=== PATIENT | female | born 1970 | race Caucasian/White ===

== ENCOUNTER 2019-11-07 13:13 | Outpatient (CLI) | payer BC, OTHER, SELFPAY ==
--- NOTE | ~2019-11-07 | US_ITS ---
EXAMINATION: US venous doppler LE EXAM DATE: 11/07/2019 14:08 INDICATION: Left leg edema. Check for venous incompetence. TECHNIQUE: Multiple grayscale, color flow and Doppler images of the left lower extremity deep venous system were obtained and reviewed. There is no prior study for comparison. FINDINGS: The left common femoral, femoral and profunda veins demonstrate normal color flow, respirat ory variation, augmentation and compressibility. Compressibility, color flow confirmed within the le ft popliteal, posterior tibial, peroneal, and greater saphenous veins. No more than 0.5 seconds of v enous reflux was demonstrated at left popliteal and profunda veins. IMPRESSION: 1. No left lower extremity deep venous thrombosis. 2. Mild left profunda, popliteal venous reflux. Reviewed, dictated and finalized at location A.
== END 2019-11-07 13:14 | disposition home or self-care (01) ==
LOC: ANHIMG 13:21
PROVIDERS: PCP Family Medicine; Visit Provider Family Medicine
DX: I87.2 Venous insufficiency (chronic) (peripheral) (principal); R60.0 Localized edema
CPT/HCPCS: 93971

== ENCOUNTER 2020-01-22 10:39 | Outpatient (CLI) | payer BC, OTHER, SELFPAY ==
[2020-01-22 11:46] LABS: Alanine Aminotransferase 27 U/L (4-35); Albumin Level 4.3 g/dL (3.5-5.1); Alkaline Phosphatase 64 U/L (38-126); Aspartate Amino Transferase 32 U/L (14-36); Bilirubin,Total 0.4 mg/dL (0.2-1.3); Blood Urea Nitrogen 11 mg/dL (7-17); Calcium 9.7 mg/dL (8.4-10.2); Carbon Dioxide 32 mmol/L (22-30); Chloride 103 mmol/L (98-107); Estimated Glomerular Filt Rate > 60; Glucose 100 mg/dL (65-105); Hemoglobin A1C 6.4 % (<5.7); Potassium 3.8 mmol/L (3.4-5.0); Sodium 141 mmol/L (137-145)
== END 2020-01-22 10:40 | disposition home or self-care (01) ==
PROVIDERS: PCP Family Medicine; Visit Provider Family Medicine
DX: R73.03 Prediabetes (principal); I10 Essential (primary) hypertension
CPT/HCPCS: 36415; 80053; 83036; 84443

== ENCOUNTER 2020-01-30 11:51 | Outpatient (CLI) | payer BC, OTHER, SELFPAY ==
--- NOTE | ~2020-01-30 | US_ITS ---
US renal BI 01/30/2020 12:19 Procedure: Realtime transabdominal ultrasound of the kidneys and bladder. Indication: Hypertension Comparison: No prior studies for comparison. Findings: Renal echotexture is normal bilaterally without hydronephrosis, contour deforming mass or r enal calculus. The right kidney measures 10.4 cm and left kidney measures 10 cm. Bladder within norm al limits. Impression: 1: Unremarkable renal ultrasound. No stones, masses or hydronephrosis. Reviewed, dictated and finalized at location A. Impression: 1: Unremarkable renal ultrasound. No stones, masses or hydronephrosis.
== END 2020-01-30 11:52 | disposition home or self-care (01) ==
PROVIDERS: PCP Family Medicine; Visit Provider Family Medicine
DX: I10 Essential (primary) hypertension (principal)
CPT/HCPCS: 76775

== ENCOUNTER 2020-06-17 16:31 | Outpatient (CLI) | payer BC, OTHER, SELFPAY ==
--- NOTE | ~2020-06-17 | XR_ITS ---
XR wrist LT min 3V 06/17/2020 16:53 INDICATION: Osteoarthritis. Left wrist pain. PROCEDURE: 4 views left wrist COMPARISON: No prior studies for comparison. FINDINGS: Fracture, dislocation or subluxation is not identified. The soft tissues appear within norm al limits. No foreign bodies are identified. IMPRESSION: 1: NO SIGNIFICANT BONE OR JOINT ABNORMALITY IDENTIFIED. Reviewed, dictated and finalized at location A.
== END 2020-06-17 16:32 | disposition home or self-care (01) ==
PROVIDERS: PCP Family Medicine; Visit Provider Plastic Surgery
DX: M19.042 Primary osteoarthritis, left hand (principal)
CPT/HCPCS: 73110

== ENCOUNTER 2020-07-01 08:21 | Outpatient (CLI) | payer BC, OTHER, SELFPAY ==
[2020-07-01 08:35] LABS: Basophils Absolute Auto 0.1 K/mm3 (0.0-0.1); Basophils Percent Auto 0.8 % (0.2-1.2); Eosinophils Absolute Auto 0.2 K/mm3 (0-0.3); Eosinophils Percent Auto 3.4 % (0-4.4); Hematocrit 38.9 % (37.0-47.0); Hemoglobin 12.3 g/dL (12.0-15.0); Immature Granulocyte Absolute 0.01 K/mm3 (0.00-0.031); Immature Granulocyte Percent A 0.2 % (0-0.5); Lymphocytes Absolute Auto 1.98 K/mm3 (0.9-3.2); Mean Corpuscular HGB Conc 31.6 g/dl (32-36); Mean Corpuscular Hemoglobin 30.6 pg (26-34); Mean Corpuscular Volume 96.8 fl (80-100); Mean Platelet Volume 10.3 fl (7.4-10.4); Monocytes Absolute Auto 0.6 K/mm3 (0.1-0.6); Monocytes Percent Auto 9.2 % (2.6-8.5); Neutrophils Absolute Auto 3.4 K/mm3 (1.3-6.7); Neutrophils Percent Auto 54.4 % (45.5-73.1); Platelet Count Result 306 k/mm3 (150-375); Red Blood Count 4.02 M/mm3 (4.2-5.4); Red Cell Distribution Width 13.7 % (11.5-14.5); White Blood Count 6.2 K/mm3 (4.5-10.0)
[2020-07-01 08:48] LABS: Hemoglobin A1C 5.2 % (<5.7)
[2020-07-01 08:51] LABS: Alanine Aminotransferase 26 U/L (4-35); Albumin Level 3.6 g/dL (3.5-5.1); Alkaline Phosphatase 58 U/L (38-126); Anion Gap 5 mmol/L (8-16); Aspartate Amino Transferase 29 U/L (14-36); Bilirubin,Total 0.3 mg/dL (0.2-1.3); Blood Urea Nitrogen 13 mg/dL (7-17); Calcium 9.2 mg/dL (8.4-10.2); Carbon Dioxide 31 mmol/L (22-30); Chloride 107 mmol/L (98-107); Cholesterol 171 mg/dL (0-200); Estimated Glomerular Filt Rate > 60; Glucose 94 mg/dL (65-105); HDL Direct 53 mg/dL; Potassium 3.7 mmol/L (3.4-5.0); Sodium 143 mmol/L (137-145); Triglycerides 128 mg/dL (<150)
[2020-07-01 09:08] LABS: LDL Cholesterol Direct 85 mg/dL
== END 2020-07-01 08:22 | disposition home or self-care (01) ==
PROVIDERS: PCP Family Medicine; Visit Provider Nurse Practitioner
DX: I10 Essential (primary) hypertension (principal); R73.9 Hyperglycemia, unspecified; E78.5 Hyperlipidemia, unspecified
CPT/HCPCS: 36415; 80053; 80061; 83036; 85025

== ENCOUNTER 2020-11-30 17:21 | Outpatient (CLI) | payer BC, OTHER, SELFPAY | END 2020-11-30 17:22 | disposition home or self-care (01) | LOC: ANHCOVIDVC 17:21 | PROVIDERS: PCP Family Medicine | DX: Z23 Encounter for immunization (principal) | CPT/HCPCS: 0001A; 91300 ==

== ENCOUNTER 2020-12-22 17:05 | Outpatient (CLI) | payer BC, OTHER, SELFPAY | END 2020-12-22 17:06 | disposition home or self-care (01) | LOC: ANHCOVIDVC 17:06 | PROVIDERS: PCP Family Medicine | DX: Z23 Encounter for immunization (principal) | CPT/HCPCS: 0002A; 91300 ==

== ENCOUNTER 2021-05-04 07:51 | Outpatient (CLI) | payer OTHER, SELFPAY ==
[2021-05-04 08:46] LABS: Basophils Absolute Auto 0.1 K/mm3 (0.0-0.1); Basophils Percent Auto 0.7 % (0.2-1.2); Eosinophils Absolute Auto 0.1 K/mm3 (0-0.3); Hematocrit 44.2 % (37.0-47.0); Hemoglobin 13.8 g/dL (12.0-15.0); Immature Granulocyte Absolute 0.03 K/mm3 (0.00-0.031); Immature Granulocyte Percent A 0.3 % (0-0.5); Lymphocytes Absolute Auto 1.84 K/mm3 (0.9-3.2); Lymphocytes Percent Auto 21.4 % (18.3-44.2); Mean Corpuscular HGB Conc 31.2 g/dl (32-36); Mean Corpuscular Hemoglobin 30.3 pg (26-34); Mean Corpuscular Volume 97.1 fl (80-100); Mean Platelet Volume 10.8 fl (7.4-10.4); Monocytes Absolute Auto 0.6 K/mm3 (0.1-0.6); Monocytes Percent Auto 6.7 % (2.6-8.5); Neutrophils Percent Auto 69.9 % (45.5-73.1); Platelet Count Result 336 k/mm3 (150-375); Red Blood Count 4.55 M/mm3 (4.2-5.4); Red Cell Distribution Width 14.1 % (11.5-14.5); White Blood Count 8.6 K/mm3 (4.5-10.0)
[2021-05-04 08:55] LABS: Alanine Aminotransferase 32 U/L (4-35); Albumin Level 3.9 g/dL (3.5-5.1); Alkaline Phosphatase 77 U/L (38-126); Anion Gap 7 mmol/L (8-16); Aspartate Amino Transferase 28 U/L (14-36); Bilirubin,Total 0.3 mg/dL (0.2-1.3); Blood Urea Nitrogen 8 mg/dL (7-17); Calcium 9.3 mg/dL (8.4-10.2); Carbon Dioxide 26 mmol/L (22-30); Chloride 109 mmol/L (98-107); Cholesterol 190 mg/dL (0-200); Estimated Glomerular Filt Rate > 60; Glucose 108 mg/dL (65-110); HDL Direct 59 mg/dL; Potassium 3.7 mmol/L (3.4-5.0); Sodium 142 mmol/L (137-145); Triglycerides 153 mg/dL (<150)
[2021-05-04 09:06] LABS: LDL Cholesterol Direct 83 mg/dL
[2021-05-04 09:42] LABS: Vitamin D 25 Hydroxy 52.9 ng/mL
== END 2021-05-04 07:52 | disposition home or self-care (01) ==
LOC: ANHLAB 07:53
PROVIDERS: PCP Family Medicine; Visit Provider Nurse Practitioner
DX: E78.5 Hyperlipidemia, unspecified (principal); E55.9 Vitamin D deficiency, unspecified; I10 Essential (primary) hypertension
CPT/HCPCS: 36415; 80053; 80061; 82306; 85025

== ENCOUNTER 2021-06-23 10:21 | Outpatient (CLI) | payer OTHER, SELFPAY | END 2021-06-23 10:22 | disposition home or self-care (01) | PROVIDERS: PCP Family Medicine; Visit Provider Nurse Practitioner | DX: R19.7 Diarrhea, unspecified (principal) | CPT/HCPCS: 87045; 87324; 87427 ==

== ENCOUNTER 2021-07-06 10:32 | Outpatient (CLI) | payer OTHER, SELFPAY | END 2021-07-06 10:33 | disposition home or self-care (01) | LOC: ANHAUDIO 10:33 | PROVIDERS: PCP Family Medicine; Visit Provider Nurse Practitioner | DX: H90.3 Sensorineural hearing loss, bilateral (principal) | CPT/HCPCS: 92557; 92567 ==

== ENCOUNTER 2021-07-09 07:04 | Outpatient (CLI) | payer OTHER, SELFPAY ==
--- NOTE | ~2021-07-09 | CT_ITS ---
EXAMINATION: CT knee LT wo con DATE: 07/09/2021 07:46 INDICATION: Left knee pain. TECHNIQUE: Computed tomography (CT) of the left knee was performed without intravenous contrast. Auto mated exposure control and iterative reconstruction technique were employed. The dose-length product was 384.87 mGy-cm. COMPARISON: None FINDINGS: Bone alignment is normal. There is a subchondral fracture of lateral femoral condyle at the notch with up to 2 mm depression of the articular surface best seen on sagittal images. There is a b enign bone island in medial femoral condyle. There is mild tricompartmental osteoarthritis. There is a small knee joint effusion. There is a small Slade's cyst. There is prepatellar and superficial infr apatellar bursitis. IMPRESSION: 1. Subchondral fracture of lateral femoral condyle at the notch. 2. Mild left knee osteoarthritis. 3. Small left knee joint effusion. 4. Small Slade's cyst. Reviewed, dictated and finalized at location A. [employer]
== END 2021-07-09 07:05 | disposition home or self-care (01) ==
LOC: ANHIMG 07:08
PROVIDERS: PCP Family Medicine; Visit Provider Nurse Practitioner
DX: M17.12 Unilateral primary osteoarthritis, left knee (principal); M25.462 Effusion, left knee; M71.22 Synovial cyst of popliteal space [Baker], left knee
CPT/HCPCS: 73700

== ENCOUNTER 2021-10-08 09:11 | Outpatient (CLI) | payer OTHER, SELFPAY ==
--- NOTE | ~2021-10-08 | XR_ITS ---
. EXAMINATION: XR fl inj knee LT for MR/CT DATE: 10/08/2021 09:59 INDICATION: Left knee pain. TECHNIQUE: A time-out was performed to verify the patient's name, date of , and procedure to b e performed. The procedure including the risks, benefits, and alternatives was discussed with the pat ient. Risks discussed included bleeding and infection. The patient understood the risks and agreed to proceed. The skin overlying the lateral aspect of the left knee joint was prepped and draped in usu al sterile fashion. Anesthetic was administered with 1% lidocaine subcutaneously. A 22 G needle was advanced under fluoroscopic guidance into the joint. A mixture of 40 mL of 3:2:1 mixture of sterile saline:Omnipaque 240:1% lidocaine was injected with intra-articular administration confirmed with int ermittent fluoroscopy. The needle was removed and the entry site was cleaned and dressed. There were no immediate complications. Fluoroscopy exposure time was 0.2 minutes. The total number of images wa s 7. FINDINGS: Real-time fluoroscopy demonstrates the and contrast in the left knee joint. IMPRESSION: 1. Successful left knee joint injection of an iodinated contrast mixture for subsequent CT arthrogram which will be dictated separately. Reviewed, dictated and finalized at location A. [employer] WIRE [employer]IEF IMPRESSION: 1. Successful left knee joint injection of an iodinated contrast mixture for varma bsequent CT arthrogram which will be dictated separately.
--- NOTE | ~2021-10-08 | CT_ITS ---
EXAMINATION: CT knee LT w con DATE: 10/08/2021 10:01 INDICATION: Left knee pain TECHNIQUE: High resolution computed tomography (CT) of the left knee was performed following intra-ar ticular administration of an iodinated contrast mixture but without intravenous contrast. Details of the joint injection have been dictated separately. Additional sagittal and coronal reconstructions we re performed. Automated exposure control and iterative reconstruction technique were employed. The do se-length product was 554.21 mGy-cm. COMPARISON: Left knee radiographs dated 10/07/2021 FINDINGS: Bone alignment is normal. No fracture. Bone island at the medial femoral condyle. Menisci appear norm al without discrete tears. Tricompartmental osteoarthritis. In the lateral compartment this is modera te to severe with/near full-thickness chondral ulceration along the lateral margin of the anterior we ightbearing lateral femoral condyle. Less severe partial thickness cartilage loss but with prominent deep chondral fissure at the central weightbearing lateral femoral condyle. Additional extensive deep chondral ulceration along much of the lateral tibial plateau which is full/near full-thickness anter iorly. Moderate osteoarthritis in the medial compartment with extensive partial thickness cartilage l oss along the weightbearing medial femoral condyle and medial tibial plateau latter approaching full- thickness along the anteromedial rim. Mild osteoarthritis in the patellofemoral compartment with part ial thickness cartilage loss and extensive deep chondral fissuring at the patellar apical ridge and m edial facet. Trochlear cartilage appears relatively preserved. No loose osteochondral bodies. Some di lute contrast is seen within 3.8 x 1.6 x 1.1 cm Slade's cyst. Soft tissue anatomy are otherwise unrem arkable. IMPRESSION: 1. Tricompartmental osteoarthritis at the left knee, moderate to severe at the lateral compartment, m oderate in the medial compartment and mild in the patellofemoral compartment. 2. Normal menisci. 3. Small to moderate size Slade's cyst. Reviewed, dictated and finalized at location A. TESTER IMPRESSION: 1. Tricompartmental osteoarthritis at the left knee, moderate to severe at the lateral compartment, moderate in the medial compartment and mild in the patello femoral compartment. 2. Normal menisci. 3. Small to moderate size Slade's cyst.
== END 2021-10-08 09:12 | disposition home or self-care (01) ==
LOC: ANHIMG 09:13
PROVIDERS: PCP Family Medicine; Visit Provider Orthopaedic Surgery
DX: M71.22 Synovial cyst of popliteal space [Baker], left knee (principal); M17.12 Unilateral primary osteoarthritis, left knee
CPT/HCPCS: 20610; 73701; 77002; Q9966

== ENCOUNTER 2021-12-29 00:49 | Day surgery (SDC) | payer OTHER, SELFPAY ==
[2021-12-10 13:13] VITALS: BMI 27.6
[2021-12-29 10:20] VITALS: BP 146/88; PULSE 70; RESP 16; TEMP 36.6; O2SAT 98
[2021-12-29] MEDS: LACTATED RINGERS 1,000 ML 150 ML IV CONT (10:23)
--- NOTE | 2021-12-29 10:42 | WPDANESEPPF ---
Anes - Initial Pre Proc Eval Procedure: Operation Date: 12/29/21 11:30 Proposed Procedures p Esophagogastroduodenoscopy - Marcel Maher MD Date/Time: 12/29/21 10:42 Surgeon: Marcel Maher MD Pre Op Diagnosis: GERD, vomiting Patient Data Age: 51 Gender: F Height: 1.68 m Weight: 78.3 kg Last Vital Signs Temp 97.9 F 12/29/21 10:20 Pulse 70 12/29/21 10:20 Resp 16 12/29/21 10:20 BP 146/88 H 12/29/21 10:20 Pulse Ox 98 12/29/21 10:20 Allergies Allergy/AdvReac Type Severity Reaction Status Date / Time No Known Allergies Allergy Verified 12/29/21 10:19 Home Medications Medication Instructions Recorded Confirmed Type ascorbic acid (vitamin C) [Vitamin 1 g PO DAILY 07/16/19 12/29/21 History C] aspirin [Adult Low Dose Aspirin] 81 mg PO DAILY 07/16/19 12/29/21 History melatonin 10 mg tablet 10 mg PO DAILY PRN tablet 10/30/19 12/29/21 History apple cider vinegar 500 mg tablet 500 mg PO TID tablet 01/22/20 12/29/21 History ergocalciferol (vitamin D2) 50 mcg 50 mcg PO DAILY 01/22/20 12/29/21 History (2,000 unit) tablet hydralazine 50 mg tablet See Rx Instructions .ROUTE 12/29/20 12/29/21 Rx .COMPLEX #90 tablet hydrochlorothiazide 25 mg tablet 25 mg PO DAILY #90 tablet 12/30/20 12/29/21 Rx sumatriptan succinate 100 mg tablet 100 mg PO BID PRN #9 tablet 04/09/21 12/29/21 Rx amlodipine 10 mg tablet 10 mg PO DAILY #90 tablet 06/22/21 12/29/21 Rx duloxetine 60 mg capsule,delayed 60 mg PO BID #180 cap 06/22/21 12/29/21 Rx release conjugated estrogens 0.9 mg tablet 0.9 mg PO DAILY tablet 07/12/21 12/29/21 History topiramate 200 mg tablet 300 mg PO BID tablet 07/12/21 12/29/21 History lisinopril 20 mg tablet 20 mg PO DAILY #90 tablet 09/20/21 12/29/21 Rx metoprolol succinate 100 mg 100 mg PO DAILY #90 tablet 11/26/21 12/29/21 Rx tablet,extended release 24 hr diclofenac sodium 50 mg 50 mg PO DAILY #30 tablet 12/01/21 12/29/21 Rx tablet,delayed release linaclotide 72 mcg capsule 72 mcg PO DAILY 30 Days #30 cap 12/21/21 12/29/21 Rx erenumab-aooe [Aimovig 140 mg SUBCUT MONTHLY 12/29/21 12/29/21 History Autoinjector] Patient hx anesthesia problems: none Family hx anesthesia problems: none Results Review: All pre-operative results and documents have been reviewed as part of the pre-operative evaluation. [facility] Past Medical History Medical History (Updated 11/23/21 @ 16:21 by Sonam Cadena, [employer]) Adenomatous colon polyp Arthritis Back pain spinal cord stimulator- left lower back Chronic neck and back pain Depression Edema of left lower extremity Essential (primary) hypertension GERD (gastroesophageal reflux disease) History of colon polyps Intractable migraine without status migrainosus Irritable bowel syndrome with constipation IT band syndrome Left knee Left knee pain Metacarpophalangeal joint pain of left hand Prediabetes Trochanteric bursitis of right hip Urge incontinence Vitamin D deficiency Surgical History Surgical History History of abdominoplasty 2009 History of arthroplasty disc - L5-S1 - 2008 & C4-6 - 2009 History of cholecystectomy 1998 History of hysterectomy 2000 Hx of section 1988 & 1996 Hx of tonsillectomy 1985 Family History Family History Grandparent Hypertension Family history of alcoholism Carcinoma of colon Family history of throat cancer Family history of malignant neoplasm of ovary Father Family history of alcoholism Family history of cardiovascular disease Mother Family history of lung cancer Family history of malignant neoplasm of ovary Other Family history of arthritis Family history of malignant neoplasm Social History Social History Years smoked: 10 Smoking status: Never smoker Second hand tobacco smoke
--- NOTE | 2021-12-29 11:04 | PM.HPGS ---
History of Present Illness History of Present Illness Consent: Risks, benefits, and alternatives have been discussed and questions answered. Patient agrees to proceed with procedure. Chief complaint: GERD, vomiting Narrative: Hui Sutherland is a 51 year old female with gerd on omeprazole 40 mg daily but if skips a dose will get quite symptomatic, also tried gluten free diet with some improvement on leg edema and headaches- wonder if she could have celiac. Never had egd Review of Systems Constitutional: Constitutional: Denies headache(s) and Denies weakness Eyes: Eyes: Denies blurry vision ENT: Reports Normal hearing present, Denies headache(s) and Denies neck pain Cardiovascular: Cardiovascular: Denies chest pain and Denies dyspnea Respiratory: Respiratory: Denies dyspnea Gastrointestinal: Gastrointestinal: Reports no additional gastrointestinal complaints Genitourinary: Genitourinary: Denies dysuria Musculoskeletal: Musculoskeletal: Denies neck pain Integumentary/Breasts: Skin/Breast: Denies dry skin Neurologic: Reports Normal hearing present, Denies headache(s) and Denies weakness Psychiatric: Psychiatric: Denies anxiety Endocrine: Endocrine: Denies change in body appearance Hematologic/Lymphatic: Hematologic/Lymphatic: Denies easy bleeding Allergic/Immunologic: Allergic/Immunologic: Denies urticaria PMF Past Medical History Medical History (Updated 11/23/21 @ 16:21 by Sonam Cadena APN-C) Adenomatous colon polyp Arthritis Back pain spinal cord stimulator- left lower back Chronic neck and back pain Depression Edema of left lower extremity Essential (primary) hypertension GERD (gastroesophageal reflux disease) History of colon polyps Intractable migraine without status migrainosus Irritable bowel syndrome with constipation IT band syndrome Left knee Left knee pain Metacarpophalangeal joint pain of left hand Prediabetes Trochanteric bursitis of right hip Urge incontinence Vitamin D deficiency Surgical History Surgical History History of abdominoplasty 2009 History of arthroplasty disc - L5-S1 - 2008 & C4-6 - 2009 History of cholecystectomy 1998 History of hysterectomy 2000 Hx of section 1988 & 1996 Hx of tonsillectomy 1985 Family History Family History Grandparent Hypertension Family history of alcoholism Carcinoma of colon Family history of throat cancer Family history of malignant neoplasm of ovary Father Family history of alcoholism Family history of cardiovascular disease Mother Family history of lung cancer Family history of malignant neoplasm of ovary Other Family history of arthritis Family history of malignant neoplasm Social History Social History Years smoked: 10 Smoking status: Never smoker Second hand tobacco smoke exposure: No Alcohol intake: never Substance use: current Substance use type: marijuana Other substance usage details: EDIBLES Living arrangements: with family Gender identity (if verbalized by the patient): Female Spiritual care concerns: No Meds Home Medications and Allergies Home Medications Medication Instructions Recorded Confirmed Type ascorbic acid (vitamin C) [Vitamin 1 g PO DAILY 07/16/19 12/29/21 History C] aspirin [Adult Low Dose Aspirin] 81 mg PO DAILY 07/16/19 12/29/21 History melatonin 10 mg tablet 10 mg PO DAILY PRN tablet 10/30/19 12/29/21 History apple cider vinegar 500 mg tablet 500 mg PO TID tablet 01/22/20 12/29/21 History ergocalciferol (vitamin D2) 50 mcg 50 mcg PO DAILY 01/22/20 12/29/21 History (2,000 unit) tablet hydralazine 50 mg tablet See Rx Instructions .ROUTE 12/29/20 12/29/21 Rx .COMPLEX #90 tablet hydrochlorothiazide 25 mg tablet 25 mg PO DAILY #90 tablet 12/30/20 12/29/21 Rx sumatrip
[2021-12-29 11:16] VITALS: BP 126/83; PULSE 75; RESP 19; O2SAT 94
[2021-12-29 11:26] VITALS: BP 129/75; PULSE 71; RESP 18; O2SAT 96
[2021-12-29 11:36] VITALS: BP 141/91; PULSE 65; RESP 17; O2SAT 100
== END 2021-12-29 11:44 | disposition home or self-care (01) ==
PROVIDERS: PCP Family Medicine; Visit Provider Internal Medicine Gastroenterology
PROC: 0DJ08ZZ Inspection of Upper Intestinal Tract, Via Natural or Artificial Opening Endoscopic (ICD-10-PCS; CPT 43235; principal; 2021-12-29 11:30)
DX: K21.00 Gastro-esophageal reflux disease with esophagitis, without bleeding (principal); K29.50 Unspecified chronic gastritis without bleeding; I10 Essential (primary) hypertension; E55.9 Vitamin D deficiency, unspecified; F32.9 Major depressive disorder, single episode, unspecified; K58.1 Irritable bowel syndrome with constipation; G89.29 Other chronic pain; M54.9 Dorsalgia, unspecified; M54.2 Cervicalgia; F12.90 Cannabis use, unspecified, uncomplicated
CPT/HCPCS: 43239; 88305; J2704; J7120

== ENCOUNTER 2022-04-28 13:28 | Outpatient (CLI) | payer OTHER, SELFPAY ==
[2022-04-28 14:16] LABS: Alanine Aminotransferase 36 U/L (6-35); Albumin Level 4.3 g/dL (3.5-5.1); Alkaline Phosphatase 60 U/L (38-126); Anion Gap 13 mmol/L (8-16); Aspartate Amino Transferase 32 U/L (14-36); Bilirubin,Total 0.3 mg/dL (0.2-1.3); Blood Urea Nitrogen 15 mg/dL (7-17); Calcium 8.8 mg/dL (8.4-10.2); Carbon Dioxide 26 mmol/L (22-30); Chloride 101 mmol/L (98-107); Estimated Glomerular Filt Rate > 60; Glucose 102 mg/dL (65-110); Potassium 3.6 mmol/L (3.4-5.0); Sodium 140 mmol/L (137-145)
== END 2022-04-28 13:29 | disposition home or self-care (01) ==
PROVIDERS: PCP Nurse Practitioner; Visit Provider Nurse Practitioner
DX: E87.6 Hypokalemia (principal)
CPT/HCPCS: 36415; 80053

== ENCOUNTER 2022-05-27 15:57 | Outpatient (CLI) | payer OTHER, SELFPAY ==
--- NOTE | ~2022-05-27 | XR_ITS ---
XR abdomen/kub 1V 05/27/2022 16:20 Indication: Flank pain. Procedure: KUB Comparison: CT dated 05/27/2022 Findings: There is a prosthetic disc device at L5-S1. There are spinal stimulator leads in the upper abdomen. There are pelvic phleboliths. No renal stones are identified. Mild lumbar spondylosis with l evoscoliosis. Nonobstructive bowel gas pattern. Impression: 1: No acute abdominal abnormality. Reviewed, dictated and finalized at location A. Impression: 1: No acute abdominal abnormality.
--- NOTE | ~2022-05-27 | CT_ITS ---
EXAMINATION: CT abdomen pelvis wo con DATE: 05/27/2022 16:23 INDICATION: Bilateral flank pain. Hematuria. TECHNIQUE: Computed tomography (CT) of the abdomen and pelvis was performed without intravenous contr ast. The dose-length product was 228.77 mGy-cm. Automated exposure control and iterative reconstruction technique were employed. COMPARISON: None. FINDINGS: Lung bases are unremarkable. Heart size is normal. No significant pleural or pericardial ef fusion. Small fat-containing right periumbilical hernia. Status post cholecystectomy. The liver, sple en, pancreas, adrenal glands and kidneys are unremarkable. Normal appendix. No renal stones. No urete ral stones or hydronephrosis. Bladder is unremarkable. No significant vascular abnormality. No lympha denopathy. Small fat-containing left inguinal hernia. There is a spinal stimulator with leads in the thoracic spine. Nonobstructive bowel gas pattern. Moderate colonic fecal loading. Hysterectomy change s are present at L5-S1 IMPRESSION: 1. No findings to account for patient's symptoms. No acute abnormality. Reviewed, dictated and finalized at location A.
== END 2022-05-27 15:58 | disposition home or self-care (01) ==
PROVIDERS: PCP Nurse Practitioner; Visit Provider Nurse Practitioner Adult Health
DX: R10.9 Unspecified abdominal pain (principal)
CPT/HCPCS: 74018; 74176

== ENCOUNTER 2022-06-24 13:15 | Outpatient (CLI) | payer OTHER, SELFPAY ==
[2022-06-24 13:55] LABS: Alanine Aminotransferase 32 U/L (6-35); Aspartate Amino Transferase 25 U/L (14-36)
== END 2022-06-24 13:16 | disposition home or self-care (01) ==
LOC: ANHLAB 13:18
PROVIDERS: PCP Family Medicine; Visit Provider Podiatrist Foot & Ankle Surgery
DX: B35.1 Tinea unguium (principal)
CPT/HCPCS: 36415; 84450; 84460

== ENCOUNTER 2022-07-20 10:04 | Outpatient (CLI) | payer OTHER, SELFPAY ==
--- NOTE | 2022-07-20 10:15 | ECG_ITS ---
Measurements Intervals [place] Rate: 63 P: 50 NH: 144 QRS: 25 QRSD: 102 T: 39 QT: 412 QTc: 422 Interpretive Statements SINUS RHYTHM BASELINE WANDER- I, II, AVR, V4-V6 NORMAL ECG NO PREVIOUS ECG AVAILABLE FOR COMPARISON Electronically Signed On 07-20-2022 10:24:00 PLACEMENT COORDINATOR by Christopher Fernández D.O.
[2022-07-20 11:25] LABS: Anion Gap 4 mmol/L (8-16); Blood Urea Nitrogen 13 mg/dL (7-17); Calcium 8.7 mg/dL (8.4-10.2); Carbon Dioxide 28 mmol/L (22-30); Chloride 108 mmol/L (98-107); Estimated Glomerular Filt Rate 59; Glucose 124 mg/dL (65-110); Potassium 3.9 mmol/L (3.4-5.0); Sodium 140 mmol/L (137-145)
== END 2022-07-20 10:05 | disposition home or self-care (01) ==
LOC: ANHLAB 10:05
PROVIDERS: PCP Family Medicine; Referring Provider Surgery; Visit Provider Anesthesiology
DX: K40.90 Unilateral inguinal hernia, without obstruction or gangrene, not specified as recurrent (principal); R35.89 Other polyuria; E78.5 Hyperlipidemia, unspecified; Z01.818 Encounter for other preprocedural examination
CPT/HCPCS: 36415; 80048; 86850; 86900; 86901; 93005

== ENCOUNTER 2022-08-01 01:44 | Day surgery (SDC) | payer OTHER, SELFPAY ==
[2022-07-19 09:27] VITALS: BMI 27.3
--- NOTE | 2022-07-19 09:59 | PC.NURSE ---
Report to the Outpatient Waiting Room, entrance under the green pavilion located off [facility], at time 1200 on date 08/01/22 Planned Procedure Time: 1400. Time changes happen often and if your time is changed the preop area will call you the afternoon before. - You and your visitor will be asked to self-screen and do not enter if you have any COVID symptoms. - Only one visitor is requested with a max of two and NO children visitors are allowed at this time. - The patient visitor may be requested to leave or wait in car when not with patient due to distancing restrictions. - A mask is optional within the hospital. Patients may have clear liquids (water, carbonated beverages, clear teas, apple juice) until 3 hours prior to surgery with a maximum of 20 ounces. - No food from midnight until time of surgery - Infants may have breast milk until 4 hours before surgery, infant formula 6 hours prior to surgery. - Children will be allowed to drink immediately following surgery. If applicable, please bring a bottle or sippy cup to assist with drinking. Juice, water, soda, and popsicles are readily available. For infants on formula, please bring formula the day of surgery. Pacifiers are allowed. Take the following medications with a SIP of water the morning of surgery: metoprolol, amlodipine, anti-anxiety/depression Medications to discontinue per physician vitamins/supplements, aspirin(dos)___ Date to take last dose_07/29/22 Please no make-up, nail czech, hairspray, perfume, deodorant, or body powder the day of surgery. No jewelry (including any body piercings) or valuables the day of surgery, leave them at home. Please take a shower or bath the night before, or the morning of, surgery with an antibacterial soap. Wear comfortable, loose fitting clothing. Children are encouraged to wear pajamas. - Jewelry must be removed prior to entering the operating room. Rings and piercings that are not removed may be cut off. - The hospital will not accept responsibility for valuables. - Please leave all valuables, including medications, at home the day of surgery. If you are going home after surgery, a licensed hearse driver must drive you home. - NO public transportation without another adult if you receive anesthesia. - We recommend that an adult stay with you for 24 hours following discharge. - We also recommend that you do not drive, make important decision, drink alcoholic beverages, or take any drugs that were not prescribed by your health care provider for at least 24 hours after your discharge time. For Pediatric surgeries, we recommend two adults accompany the child home. Follow any additional instructions given to you from your surgeon. If you or anyone in your household have experienced Covid symptoms in the past week, please notify your surgeon or the nurse liaison at the phone number below for possible testing. Telephone instructions given to Hui Sutherland and asked if any additional questions and then verbalized understanding. Patient advised to call surgeon office or pre surgery nurse liaison [phone] if any additional questions.
[2022-08-01] VITALS (8 sets, daily range): BP systolic 121–145; BP diastolic 74–93; PULSE 60–70; RESP 14–16; TEMP 36.4–36.6; O2SAT 95–100
--- NOTE | 2022-08-01 11:27 | PM.IMHP ---
H&P: HPI History of Present Illness Date/Time: 08/01/22 11:27 Chief Complaint: ventral hernia Narrative: Hui is a 51 y/o female who presents to the office at the request of Daylin Parry NP for evaluation of lower abdominal pain with associated constipation. She states she has been experiencing these symptoms intermittently for many years but they have worsened over the past two months. She also reports nausea/vomiting. Patient states she has not had a BM in the past 3 days. She currently takes Linzess. She also just got back from a vacation to [place] for 10 days and did not have a BM until she returns. She has tried taking Miralax with no relief. CT abd/pelvis w/o contrast on 05/27/22 revealed a small fat-containing left inguinal hernia.? Review of Systems Review of Systems: All systems reviewed & are unremarkable except as noted in HPI and below PMFSH Past Medical History Medical History Adenomatous colon polyp Arthritis Back pain spinal cord stimulator- left lower back Chronic neck and back pain Edema of left lower extremity Essential (primary) hypertension GERD (gastroesophageal reflux disease) History of colon polyps Intractable migraine without status migrainosus Irritable bowel syndrome with constipation IT band syndrome Left knee Metacarpophalangeal joint pain of left hand Prediabetes Trochanteric bursitis of right hip Urge incontinence Vitamin D deficiency Surgical History Surgical History History of abdominoplasty 2009 History of arthroplasty disc - L5-S1 - 2008 & C4-6 - 2009 History of cholecystectomy 1998 History of hysterectomy 2000 Hx of section 1988 & 1996 Hx of endoscopy Hx of tonsillectomy 1985 Family History Family History Grandparent Hypertension Family history of alcoholism Carcinoma of colon Family history of throat cancer Family history of malignant neoplasm of ovary Father Family history of alcoholism Family history of cardiovascular disease Cerebrovascular accident Hypertension Mother Family history of lung cancer Family history of malignant neoplasm of ovary Hypertension Other Family history of arthritis Family history of malignant neoplasm Social History Social History Years smoked: 10 Smoking status: Never smoker Second hand tobacco smoke exposure: No Alcohol intake: never Substance use: current Substance use type: marijuana Other substance usage details: medical marijuana Living arrangements: alone 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 Gender identity (if verbalized by the patient): Female Sexual Orientation (if Verbalized by the Patient): Straight or Heterosexual Spiritual care concerns: No Agree to blood products: Yes Meds Home Medications and Allergies Home Medications Medication Instructions Recorded Confirmed Type ascorbic acid (vitamin C) 1,000 mg 1 g PO DAILY 07/16/19 07/21/22 History tablet (Vitamin C) aspirin 81 mg tablet,delayed 81 mg PO DAILY 07/16/19 07/21/22 History release (Adult Low Dose Aspirin) melatonin 10 mg tablet 10 mg PO DAILY PRN Sleep 10/30/19 07/21/22 History apple cider vinegar 500 mg tablet 500 mg PO TID 01/22/20 07/21/22 History ergocalciferol (vitamin D2) 50 mcg 50 mcg PO DAILY 01/22/20 07/21/22 History (2,000 unit) tablet sumatriptan succinate 100 mg tablet 100 mg PO BID PRN migraine 04/09/21 07/21/22 Rx headache #9 tabs conjugated estrogens 0.9 mg tablet 0.9 mg PO DAILY 07/12/21 07/21/22 History erenumab-aooe 140 mg/mL 140 mg subcut MONTHLY 12/29/21 07/21/22 History subcutaneous auto-injector (Aimovig Autoinjector) hydralazine 50 mg tablet 50 mg PO TID 01/10/22 07/21/22 History metoprolol succinate 100 mg 100 mg PO DAILY #90 ta
[2022-08-01] MEDS: KETOROLAC 15 MG/ML VIAL (*BKC) IV PUSH (12:00)
[2022-08-01] MEDS: ACETAMINOPHEN 500 MG TABLET 1000 MG PO (12:00)
[2022-08-01] MEDS: LACTATED RINGERS 1,000 ML 30 ML IV CONT ×2 (12:00→15:30)
--- NOTE | 2022-08-01 12:54 | WPDANESEPPF ---
Anes - Initial Pre Proc Eval Procedure: Operation Date: 08/01/22 14:00 Proposed Procedures p Robotic Assisted Left Inguinal Hernia Repair with Mesh - Liz Perez MD Date/Time: 08/01/22 12:54 Surgeon: Liz Perez MD Pre Op Diagnosis: Left Ing Hernia Patient Data Age: 51 Gender: F Height: 1.68 m Weight: 77 kg Allergies Allergy/AdvReac Type Severity Reaction Status Date / Time No Known Allergies Allergy Verified 08/01/22 12:55 Home Medications Medication Instructions Recorded Confirmed Type ascorbic acid (vitamin C) 1,000 mg 1 g PO DAILY 07/16/19 07/21/22 History tablet (Vitamin C) aspirin 81 mg tablet,delayed 81 mg PO DAILY 07/16/19 07/21/22 History release (Adult Low Dose Aspirin) melatonin 10 mg tablet 10 mg PO DAILY PRN Sleep 10/30/19 07/21/22 History apple cider vinegar 500 mg tablet 500 mg PO TID 01/22/20 07/21/22 History ergocalciferol (vitamin D2) 50 mcg 50 mcg PO DAILY 01/22/20 07/21/22 History (2,000 unit) tablet sumatriptan succinate 100 mg tablet 100 mg PO BID PRN migraine 04/09/21 07/21/22 Rx headache #9 tabs conjugated estrogens 0.9 mg tablet 0.9 mg PO DAILY 07/12/21 07/21/22 History erenumab-aooe 140 mg/mL 140 mg subcut MONTHLY 12/29/21 07/21/22 History subcutaneous auto-injector (Aimovig Autoinjector) hydralazine 50 mg tablet 50 mg PO TID 01/10/22 07/21/22 History metoprolol succinate 100 mg 100 mg PO DAILY #90 tabs 01/10/22 07/21/22 Rx tablet,extended release 24 hr topiramate 200 mg tablet 200 mg PO BID 01/10/22 07/21/22 History amlodipine 10 mg tablet 10 mg PO DAILY #90 tabs 01/18/22 07/21/22 Rx duloxetine 60 mg capsule,delayed 60 mg PO BID #180 caps 01/18/22 07/21/22 Rx release (Cymbalta) lisinopril 20 mg tablet 20 mg PO DAILY #90 tabs 03/02/22 07/21/22 Rx buspirone 5 mg tablet 5 mg PO TID #90 tabs 04/18/22 07/21/22 Rx quetiapine 300 mg tablet 300 mg PO QHS #90 tabs 04/18/22 07/21/22 Rx diclofenac sodium 50 mg 50 mg PO DAILY #90 tabs 07/04/22 07/21/22 Rx tablet,delayed release hydrochlorothiazide 25 mg tablet 25 mg PO DAILY #90 tabs 07/04/22 07/21/22 Rx linaclotide 72 mcg capsule 72 mcg PO DAILY #30 caps 08/01/22 Rx (Linzess) Patient hx anesthesia problems: post op nausea/vomiting Family hx anesthesia problems: none Results Review: All pre-operative results and documents have been reviewed as part of the pre-operative evaluation. [facility] Past Medical History Medical History Adenomatous colon polyp Arthritis Back pain spinal cord stimulator- left lower back Chronic neck and back pain Edema of left lower extremity Essential (primary) hypertension GERD (gastroesophageal reflux disease) History of colon polyps Intractable migraine without status migrainosus Irritable bowel syndrome with constipation IT band syndrome Left knee Metacarpophalangeal joint pain of left hand Prediabetes Trochanteric bursitis of right hip Urge incontinence Vitamin D deficiency Surgical History Surgical History History of abdominoplasty 2009 History of arthroplasty disc - L5-S1 - 2008 & C4-6 - 2009 History of cholecystectomy 1998 History of hysterectomy 2000 Hx of section 1988 & 1996 Hx of endoscopy Hx of tonsillectomy 1985 Family History Family History Grandparent Hypertension Family history of alcoholism Carcinoma of colon Family history of throat cancer Family history of malignant neoplasm of ovary Father Family history of alcoholism Family history of cardiovascular disease Cerebrovascular accident Hypertension Mother Family history of lung cancer Family history of malignant neoplasm of ovary Hypertension Other Family history of arthritis Family history of malignant neoplasm Social History Social History (Reviewed 08/01/22 @ 11:28 by Liz Murrell
[2022-08-01] MEDS: SCOPOLAMINE 1.5 MG PATCH TRANSDERM (13:00)
--- NOTE | 2022-08-01 13:41 | WPDHPUPDATE1 ---
History and Physical Update Update Date/Time: 08/01/22 13:41 History and Physical has been reviewed, including an updated exam of the patient. There are NO changes in the patient's condition. Risks, benefits, and alternatives have been discussed and questions answered. Patient agrees to proceed with procedure.
[2022-08-01] MEDS: ceFAZolin 2 GM/D5W 50 ML 2 GM/50 ML BAG IVPB (14:05)
[2022-08-01] MEDS: BUPIVACAINE/EPINEPHRINE 0.5% 10 ML VIAL 30 ML INFILTRATE (14:29)
--- NOTE | 2022-08-01 15:14 | W.PM.PROC2 ---
Procedure Note - Detailed Date of Procedure 08/01/22 Pre-op Diagnosis Left Ing Hernia Post-op Diagnosis Same Procedure Performed robotic assisted left inguinal hernia repair with mesh Surgeon Liz Perez MD Anesthesia General Indications 51 y/o F c LIH and worsening groin pain over last few months Findings indirect left inguinal hernia Description of Procedure Patient was brought into the operating room and placed in the supine position. After adequate induction of general anesthesia, the patient was prepped and draped in normal sterile fashion. A time-out was then done to verify the patient's identity, as well as the procedure being performed. I began by making a 8 mm incision in the supraumbilical region, a Veress needle was then placed into the peritoneal cavity. CO2 gas was then insufflated and after adequate pneumoperitoneum was achieved, the Veress needle was removed. I then placed an 8 mm trocar through this incision. I then placed the endoscope through this trocar site and under direct visualization placed 2 further 8 mm ports in the right and left mid abdomen. The [email or web address] robot was then docked to the 3 trocar sites. I then scrubbed out and went to the robotic console. There was some lower midline adhesions that were taken down sharply. Upon examining the pelvis, it was noted that the patient had a moderate left inguinal hernia. The right side was examined and no hernia defect was noted. I began by making a preperitoneal flap approximately 6 cm superior to the defect. This flap was carried medially past the umbilical ligaments and laterally to the transversalis. It then began dissection of my medial compartment taking this down to the pubic tubercle. I then began the lateral dissection taking this down to the transversalis fascia. Once these compartments were achieved, I began dissection around the cord structures. A moderate sized indirect hernia was noted at this point. Using careful dissection, was able to reduce indirect hernia sac off the cord structures. Once this was adequately done, I went ahead and placed a large piece of 3D Max mesh into the abdominal cavity. The mesh was carefully positioned, centering the center of the mesh over the indirect defect. Once this was done, was very satisfied with our repair. Using 3-0 Vicryl sutures, I tacked the mesh medially to Thad's ligament. Two lateral sutures were placed from the mesh to the transversalis fascia. I then closed the peritoneal flap with a running 2.0 V Lock suture. The abdomen was then desufflated, and all ports were removed. All incisions were then closed with the 4.0 monocryl suture. Dermabond was placed on each wound. The patient tolerated the procedure well, was extubated in the operating room postoperatively, and will now be transferred to the recovery room in stable condition. Implants large 3DMax mesh Estimated Blood Loss 10 Drains No Packing No Pathology None sent Complications No immediate complications Condition Stable Disposition PACU [facility] Billing Surgery - Charge Forward: Surgery Billing
[2022-08-01] MEDS: fentaNYL CITRATE INJ (*CRX) 100 MCG/2 ML VIAL 25 MCG IV PUSH ×2 (15:35→15:55)
== END 2022-08-01 17:12 | disposition home or self-care (01) ==
PROVIDERS: PCP Family Medicine; Visit Provider Surgery
PROC: 8E0Y4CZ Robotic Assisted Procedure of Lower Extremity, Percutaneous Endoscopic Approach (ICD-10-PCS; CPT 49650; principal; 2022-08-01 14:00)
DX: K40.90 Unilateral inguinal hernia, without obstruction or gangrene, not specified as recurrent (principal); I10 Essential (primary) hypertension; K21.9 Gastro-esophageal reflux disease without esophagitis; K58.1 Irritable bowel syndrome with constipation; M54.2 Cervicalgia; M54.9 Dorsalgia, unspecified; G89.29 Other chronic pain; E55.9 Vitamin D deficiency, unspecified; R73.03 Prediabetes; F12.90 Cannabis use, unspecified, uncomplicated; Z98.1 Arthrodesis status; Z79.82 Long term (current) use of aspirin
CPT/HCPCS: 49650; S2900; A9270; C1781; J0690; J1100; J1885; J2250; J2405; J2704; J2710; J3010; J7120

== ENCOUNTER 2022-08-24 14:36 | Outpatient (CLI) | payer OTHER, SELFPAY ==
--- NOTE | ~2022-08-24 | MM_ITS ---
EXAMINATION: MM screening kash BI w tripp HISTORY: Screening mammogram TECHNIQUE: Craniocaudal and mediolateral oblique 3-D tomosynthesis images were obtained and synthetic 2-D images were generated. CAD analysis was submitted and interpreted. COMPARISON: No prior mammogram is available for comparison at this institution. BREAST PARENCHYMAL COMPOSITION: There are scattered areas of fibroglandular density. FINDINGS: RIGHT BREAST: There are calcifications in the anterior third of the outer breast. LEFT BREAST: No suspicious mass, calcification, or architectural distortion are identified to suggest malignancy. IMPRESSION: 1. Right breast calcifications which may represent the patient's baseline however no comparison is cu rrently available. 2. Comparison with prior mammograms is necessary. BI-RADS Category 0: Incomplete: Needs comparison with prior mammograms. Reviewed, dictated and finalized at location A. D MARKETING REPRESENTATIVE IMPRESSION: 1. Right breast calcifications which may represent the patient's baseline howev er no comparison is currently available. 2. Comparison with prior mammograms is necessary. BI-RADS Category 0: Incomplete: Needs comparison with prior mammograms.
== END 2022-08-24 14:37 | disposition home or self-care (01) ==
PROVIDERS: PCP Family Medicine; Visit Provider Nurse Practitioner
DX: Z12.31 Encounter for screening mammogram for malignant neoplasm of breast (principal); R92.8 Other abnormal and inconclusive findings on diagnostic imaging of breast
CPT/HCPCS: 77063; 77067

== ENCOUNTER 2022-09-02 12:19 | Outpatient (CLI) | payer OTHER, SELFPAY ==
[2022-09-02 13:20] LABS: Free T4 Free Thyroxine 0.84 ng/mL (0.78-2.19)
[2022-09-02 13:33] LABS: Erythrocyte Sedimentation Rate 19 mm/hr (0-20)
[2022-09-02 13:55] LABS: Folic Acid 11.9 ng/mL (2.76->20)
[2022-09-07 12:14] LABS: Anti Nuclear Antibody Pattern Nuclear, Speckled; Anti Nuclear Antibody Titer 1:40 (Negative)
== END 2022-09-02 12:20 | disposition home or self-care (01) ==
PROVIDERS: PCP Family Medicine; Visit Provider Nurse Practitioner Gerontology
DX: R41.3 Other amnesia (principal)
CPT/HCPCS: 36415; 82607; 82746; 84439; 84443; 85652; 86038; 86039

== ENCOUNTER 2022-09-05 01:24 | Day surgery (SDC) | payer OTHER, SELFPAY ==
[2022-08-24 09:24] VITALS: BMI 27.5
[2022-09-05 09:51] VITALS: BP 127/83; PULSE 78; RESP 16; TEMP 36.1; O2SAT 98
[2022-09-05] MEDS: LACTATED RINGERS 1,000 ML 150 ML IV CONT (09:58)
--- NOTE | 2022-09-05 10:35 | WPDANESEPPF ---
Anes - Initial Pre Proc Eval Procedure: Operation Date: 09/05/22 11:00 Proposed Procedures p Screening Colonoscopy - Marcel Maher MD Date/Time: 09/05/22 10:35 Surgeon: Marcel Maher MD Pre Op Diagnosis: Hx of colon polyps, fam hx of colon cancer Patient Data Age: 52 Gender: F Height: 1.7 m Weight: 76.7 kg Last Vital Signs Temp 96.9 F L 09/05/22 09:51 Pulse 78 09/05/22 09:51 Resp 16 09/05/22 09:51 BP 127/83 09/05/22 09:51 Pulse Ox 98 09/05/22 09:51 O2 Del Method Room Air 09/05/22 09:51 Allergies Allergy/AdvReac Type Severity Reaction Status Date / Time No Known Allergies Allergy Verified 09/05/22 09:49 Home Medications Medication Instructions Recorded Confirmed Type ascorbic acid (vitamin C) 1,000 mg 1 g PO DAILY 07/16/19 08/30/22 History tablet (Vitamin C) aspirin 81 mg tablet,delayed 81 mg PO DAILY 07/16/19 08/30/22 History release (Adult Low Dose Aspirin) melatonin 10 mg tablet 10 mg PO HS PRN Sleep 10/30/19 08/30/22 History apple cider vinegar 500 mg tablet 500 mg PO TID 01/22/20 08/30/22 History ergocalciferol (vitamin D2) 50 mcg 50 mcg PO DAILY 01/22/20 08/30/22 History (2,000 unit) tablet sumatriptan succinate 100 mg tablet 100 mg PO BID PRN migraine 04/09/21 08/30/22 Rx headache #9 tabs conjugated estrogens 0.9 mg tablet 0.9 mg PO DAILY 07/12/21 08/30/22 History erenumab-aooe 140 mg/mL 140 mg subcut MONTHLY 12/29/21 08/30/22 History subcutaneous auto-injector (Aimovig Autoinjector) metoprolol succinate 100 mg 100 mg PO DAILY #90 tabs 01/10/22 08/30/22 Rx tablet,extended release 24 hr topiramate 200 mg tablet 200 mg PO BID 01/10/22 08/30/22 History duloxetine 60 mg capsule,delayed 60 mg PO BID #180 caps 01/18/22 08/30/22 Rx release (Cymbalta) buspirone 5 mg tablet 5 mg PO TID #90 tabs 04/18/22 08/30/22 Rx quetiapine 300 mg tablet 300 mg PO QHS #90 tabs 04/18/22 08/30/22 Rx diclofenac sodium 50 mg 50 mg PO DAILY #90 tabs 07/04/22 08/30/22 Rx tablet,delayed release hydrochlorothiazide 25 mg tablet 25 mg PO DAILY #90 tabs 07/04/22 08/30/22 Rx linaclotide 72 mcg capsule 72 mcg PO DAILY #30 caps 08/01/22 08/30/22 Rx (Linzess) amlodipine 10 mg tablet 10 mg PO DAILY #90 tabs 08/19/22 08/30/22 Rx lisinopril 20 mg tablet 20 mg PO DAILY #90 tabs 08/29/22 08/30/22 Rx Patient hx anesthesia problems: none Family hx anesthesia problems: none Results Review: All pre-operative results and documents have been reviewed as part of the pre-operative evaluation. [facility] Past Medical History Medical History Adenomatous colon polyp Arthritis Back pain spinal cord stimulator- left lower back Chronic neck and back pain Edema of left lower extremity Essential (primary) hypertension GERD (gastroesophageal reflux disease) History of colon polyps Intractable migraine without status migrainosus Irritable bowel syndrome with constipation IT band syndrome Left knee Metacarpophalangeal joint pain of left hand Prediabetes Trochanteric bursitis of right hip Urge incontinence Vitamin D deficiency Surgical History Surgical History History of abdominoplasty 2009 History of arthroplasty disc - L5-S1 - 2008 & C4-6 - 2009 History of cholecystectomy 1998 History of hysterectomy 2001 Hx of section 1988 & 1996 Hx of endoscopy Hx of left inguinal hernia repair robo assisted LIH repair with mesh on 08/01/22 Hx of tonsillectomy 1985 Family History Family History Grandparent Hypertension Family history of alcoholism Carcinoma of colon Family history of throat cancer Family history of malignant neoplasm of ovary Father Family history of alcoholism Family history of cardiovascular disease Cerebrovascular accident Hypertension Mother
--- NOTE | 2022-09-05 10:39 | PM.HPGS ---
History of Present Illness History of Present Illness Consent: Risks, benefits, and alternatives have been discussed and questions answered. Patient agrees to proceed with procedure. Chief complaint: Hx of colon polyps, fam hx of colon cancer Narrative: Hui Sutherland is a 52 year old female with colon polyp in 2019 Review of Systems Constitutional: Constitutional: Denies headache(s) and Denies weakness Eyes: Eyes: Denies blurry vision ENT: Reports Normal hearing present, Denies headache(s) and Denies neck pain Cardiovascular: Cardiovascular: Denies chest pain and Denies dyspnea Respiratory: Respiratory: Denies dyspnea Gastrointestinal: Gastrointestinal: Reports no additional gastrointestinal complaints Genitourinary: Genitourinary: Denies dysuria Musculoskeletal: Musculoskeletal: Denies neck pain Integumentary/Breasts: Skin/Breast: Denies dry skin Neurologic: Reports Normal hearing present, Denies headache(s) and Denies weakness Psychiatric: Psychiatric: Denies anxiety Endocrine: Endocrine: Denies change in body appearance Hematologic/Lymphatic: Hematologic/Lymphatic: Denies easy bleeding Allergic/Immunologic: Allergic/Immunologic: Denies urticaria PMFSH Past Medical History Medical History Adenomatous colon polyp Arthritis Back pain spinal cord stimulator- left lower back Chronic neck and back pain Edema of left lower extremity Essential (primary) hypertension GERD (gastroesophageal reflux disease) History of colon polyps Intractable migraine without status migrainosus Irritable bowel syndrome with constipation IT band syndrome Left knee Metacarpophalangeal joint pain of left hand Prediabetes Trochanteric bursitis of right hip Urge incontinence Vitamin D deficiency Surgical History Surgical History History of abdominoplasty 2009 History of arthroplasty disc - L5-S1 - 2008 & C4-6 - 2009 History of cholecystectomy 1998 History of hysterectomy 2000 Hx of section 1988 & 1996 Hx of endoscopy Hx of left inguinal hernia repair robo assisted LIH repair with mesh on 08/01/22 Hx of tonsillectomy 1985 Family History Family History Grandparent Hypertension Family history of alcoholism Carcinoma of colon Family history of throat cancer Family history of malignant neoplasm of ovary Father Family history of alcoholism Family history of cardiovascular disease Cerebrovascular accident Hypertension Mother Family history of lung cancer Family history of malignant neoplasm of ovary Hypertension Other Family history of arthritis Family history of malignant neoplasm Social History Social History Years smoked: 10 Smoking status: Former smoker Tobacco type: cigarettes Second hand tobacco smoke exposure: No Alcohol intake: never Substance use: current Substance use type: marijuana Other substance usage details: medical marijuana Last use: occasionally Living arrangements: with family 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 Gender identity (if verbalized by the patient): Female Sexual Orientation (if Verbalized by the Patient): Straight or Heterosexual Spiritual care concerns: No Agree to blood products: Yes Meds Home Medications and Allergies Home Medications Medication Instructions Recorded Confirmed Type ascorbic acid (vitamin C) 1,000 mg 1 g PO DAILY 07/16/19 08/30/22 History tablet (Vitamin C) aspirin 81 mg tablet,delayed 81 mg PO DAILY 07/16/19 08/30/22 History release (Adult Low Dose Aspirin) melatonin 10 mg tablet 10 mg PO HS PRN Sleep 10/30/19 08/30/22 History apple cider vinegar 500 mg tablet 500 mg PO TID 01/22/20 08/30/22 History ergocalciferol (vitamin D2) 50 mcg 50
[2022-09-05 11:09] VITALS: BP 112/61; PULSE 80; RESP 25; O2SAT 98
[2022-09-05 11:19] VITALS: BP 100/60; PULSE 87; RESP 22; O2SAT 100
[2022-09-05 11:27] VITALS: BP 104/69; PULSE 70; RESP 19; O2SAT 96
== END 2022-09-05 11:42 | disposition home or self-care (01) ==
PROVIDERS: PCP Family Medicine; Visit Provider Internal Medicine Gastroenterology
PROC: 0DJD8ZZ Inspection of Lower Intestinal Tract, Via Natural or Artificial Opening Endoscopic (ICD-10-PCS; CPT 45378; principal; 2022-09-05 11:00)
DX: Z12.11 Encounter for screening for malignant neoplasm of colon (principal); K64.8 Other hemorrhoids; Z86.010 Personal history of colon polyps; Z80.0 Family history of malignant neoplasm of digestive organs; Z79.82 Long term (current) use of aspirin; I10 Essential (primary) hypertension; K21.9 Gastro-esophageal reflux disease without esophagitis; K58.1 Irritable bowel syndrome with constipation; E55.9 Vitamin D deficiency, unspecified; R73.03 Prediabetes; G89.29 Other chronic pain; M54.2 Cervicalgia; M54.9 Dorsalgia, unspecified; Z87.891 Personal history of nicotine dependence; F12.90 Cannabis use, unspecified, uncomplicated
CPT/HCPCS: 45378; J2370; J2704; J7120

== ENCOUNTER 2022-10-28 10:31 | Outpatient (CLI) | payer OTHER, SELFPAY ==
--- NOTE | ~2022-10-28 | XR_ITS ---
Left foot Technique: AP and lateral standing views were obtained. Clinical History: Abnormal immunological findings Findings: No acute fracture or dislocation is seen. Osseous alignment is anatomic. Joint spaces are p reserved without erosive or degenerative change. Soft tissues are unremarkable. Impression: Unremarkable left foot radiographs. Reviewed, dictated and finalized at location . ESSIONAL WRESTLER Impression: Unremarkable left foot radiographs.
--- NOTE | ~2022-10-28 | XR_ITS ---
Bilateral Hands Technique: Bilateral PA, oblique, and lateral views, and ball-catcher's view were obtained. Clinical History: Abnormal immunological findings Findings: No acute fracture or dislocation is seen. Osseous alignment is anatomic. Joint spaces are p reserved. Soft tissues are unremarkable. Impression: Unremarkable bilateral hand radiographs. Reviewed, dictated and finalized at location . 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
--- NOTE | ~2022-10-28 | XR_ITS ---
Right foot Technique: AP and lateral standing views were obtained. Clinical History: Abnormal immunological findings Findings: No acute fracture or dislocation is seen. Osseous alignment is anatomic. Joint spaces are p reserved without erosive or degenerative change. Soft tissues are unremarkable. Impression: Unremarkable right foot radiographs. Reviewed, dictated and finalized at location . L AID Impression: Unremarkable right foot radiographs.
[2022-10-28 11:41] LABS: Hematocrit 42.4 % (37.0-47.0); Hemoglobin 13.3 g/dL (12.0-15.0); Mean Corpuscular HGB Conc 31.4 g/dl (32-36); Mean Corpuscular Hemoglobin 29.8 pg (26-34); Mean Corpuscular Volume 95.1 fl (80-100); Mean Platelet Volume 11.2 fl (7.4-10.4); Platelet Count Result 311 k/mm3 (150-375); Red Blood Count 4.46 M/mm3 (4.2-5.4); White Blood Count 6.9 K/mm3 (4.5-10.0)
[2022-10-28 11:51] LABS: Appearance Urine Turbid (Clear); Bacteria Urine 4+ /hpf; Bilirubin Urine Negative (Negative); Blood Urine Negative (Negative); Color Urine Dark Yellow (Yellow); Glucose Urine UA Negative (Negative); Ketones Urine Trace mg/dL (Negative); Leukocyte Esterase Ur Negative LEU/UL (Negative); Need Manual Microscopic Reviewed; Nitrate Urine Negative (Negative); Protein Urine Trace mg/dL (Negative); RBC Urine >100 /hpf (0-2); Specific Grav Ur 1.024 (1.001-1.035); Squamous Epithelial Cell Urine Many /hpf (Few); WBC Urine 0-5 /hpf
[2022-10-28 12:05] LABS: Add Urine Microscopic? YES
[2022-10-28 12:10] LABS: Erythrocyte Sedimentation Rate 12 mm/hr (0-20)
[2022-10-28 12:12] LABS: Alanine Aminotransferase 37 U/L (6-35); Albumin Level 4.6 g/dL (3.5-5.1); Alkaline Phosphatase 60 U/L (38-126); Anion Gap 8 mmol/L (8-16); Aspartate Amino Transferase 27 U/L (14-36); Bilirubin,Total 0.4 mg/dL (0.2-1.3); Blood Urea Nitrogen 24 mg/dL (7-17); CRP < 0.5 mg/dL (<1.0); Carbon Dioxide 27 mmol/L (22-30); Chloride 101 mmol/L (98-107); Creatine Kinase 41 U/L (30-135); Estimated Glomerular Filt Rate 53; Glucose 105 mg/dL (65-110); Potassium 3.5 mmol/L (3.4-5.0); Sodium 136 mmol/L (137-145); Uric Acid 7.3 mg/dL (2.5-7.5)
[2022-10-28 12:27] LABS: Vitamin D 25 Hydroxy 72.7 ng/mL
[2022-10-28 23:27] LABS: Complement C3 121 mg/dL (88-165); Rheumatoid Factor < 8.6 IU/ML (<12)
[2022-11-02 04:13] LABS: Aldolase 6.2 U/L (<=8.1)
[2022-11-02 22:10] LABS: ANCA Screen Negative (Negative); Myeloperoxidase Ab <1.0 AI (<1.0); Proteinase-3 Ab <1.0 AI (<1.0); S cerevisiae Ab (IgA) 7.4 U (<=20.0); S cerevisiae Ab (IgG) 16.4 U (<=20.0)
[2022-11-03 09:56] LABS: SM Antibody <1.0; SM/RNP Antibody <1.0; SS-A <1.0; SS-B <1.0
[2022-11-03 21:29] LABS: Anti Cyclic Citrullinated Pept <16 Units (<20)
[2022-11-03 21:41] LABS: Lupus dRVVT Screen 42 sec (<=45); PTT-LA Screen 30 sec (<=40)
== END 2022-10-28 10:32 | disposition home or self-care (01) ==
LOC: ANHLAB 10:32
PROVIDERS: PCP Family Medicine; Visit Provider Internal Medicine
DX: R76.8 Other specified abnormal immunological findings in serum (principal); M79.10 Myalgia, unspecified site; R53.83 Other fatigue; M19.90 Unspecified osteoarthritis, unspecified site
CPT/HCPCS: 36415; 73130; 73620; 80053; 81001; 82085; 82306; 82550; 84550; 85027; 85613; 85652; 85730; 86036; 86140; 86160; 86200; 86225; 86235; 86430; 86671

== ENCOUNTER 2023-01-27 07:43 | Outpatient (CLI) | payer OTHER, SELFPAY ==
[2023-01-27 08:15] LABS: Basophils Absolute Auto 0.1 K/mm3 (0.0-0.1); Basophils Percent Auto 0.7 % (0.2-1.2); Eosinophils Absolute Auto 0.1 K/mm3 (0-0.3); Eosinophils Percent Auto 1.3 % (0-4.4); Hematocrit 43.2 % (37.0-47.0); Hemoglobin 13.5 g/dL (12.0-15.0); Immature Granulocyte Absolute 0.03 K/mm3 (0.00-0.031); Immature Granulocyte Percent A 0.4 % (0-0.5); Lymphocytes Absolute Auto 2.35 K/mm3 (0.9-3.2); Lymphocytes Percent Auto 27.7 % (18.3-44.2); Mean Corpuscular HGB Conc 31.3 g/dl (32-36); Mean Corpuscular Volume 99.1 fl (80-100); Mean Platelet Volume 9.6 fl (7.4-10.4); Monocytes Absolute Auto 0.8 K/mm3 (0.1-0.6); Monocytes Percent Auto 9.3 % (2.6-8.5); Neutrophils Absolute Auto 5.1 K/mm3 (1.3-6.7); Neutrophils Percent Auto 60.6 % (45.5-73.1); Platelet Count Result 419 k/mm3 (150-375); Red Blood Count 4.36 M/mm3 (4.2-5.4); Red Cell Distribution Width 13.2 % (11.5-14.5); White Blood Count 8.5 K/mm3 (4.5-10.0)
[2023-01-27 09:00] LABS: Vitamin D 25 Hydroxy 56.1 ng/mL
[2023-01-27 09:23] LABS: Hemoglobin A1C 5.7 % (<5.7)
[2023-01-27 09:26] LABS: Alanine Aminotransferase 43 U/L (6-35); Albumin Level 4.3 g/dL (3.5-5.1); Alkaline Phosphatase 54 U/L (38-126); Anion Gap 6 mmol/L (8-16); Aspartate Amino Transferase 33 U/L (14-36); Bilirubin,Total 0.4 mg/dL (0.2-1.3); Blood Urea Nitrogen 16 mg/dL (7-17); Carbon Dioxide 33 mmol/L (22-30); Chloride 100 mmol/L (98-107); Cholesterol 221 mg/dL (0-200); Estimated Glomerular Filt Rate > 60; Glucose 130 mg/dL (65-110); HDL Direct 77 mg/dL; Potassium 4.6 mmol/L (3.4-5.0); Sodium 139 mmol/L (137-145); Triglycerides 121 mg/dL (<150)
[2023-01-27 09:43] LABS: LDL Cholesterol Direct 117 mg/dL
== END 2023-01-27 07:44 | disposition home or self-care (01) ==
PROVIDERS: PCP Family Medicine; Visit Provider Family Medicine
DX: E55.9 Vitamin D deficiency, unspecified (principal); R20.0 Anesthesia of skin; R20.2 Paresthesia of skin; I10 Essential (primary) hypertension; R73.03 Prediabetes; Z00.00 Encounter for general adult medical examination without abnormal findings; M32.9 Systemic lupus erythematosus, unspecified; R76.8 Other specified abnormal immunological findings in serum; E53.8 Deficiency of other specified B group vitamins; E78.5 Hyperlipidemia, unspecified
CPT/HCPCS: 36415; 80053; 80061; 82306; 82607; 83036; 84443; 85025

== ENCOUNTER 2023-03-23 14:47 | Outpatient (CLI) | payer OTHER, SELFPAY ==
[2023-03-23 15:25] LABS: Hematocrit 38.9 % (37.0-47.0); Hemoglobin 12.3 g/dL (12.0-15.0); Mean Corpuscular HGB Conc 31.6 g/dl (32-36); Mean Corpuscular Hemoglobin 31.2 pg (26-34); Mean Corpuscular Volume 98.7 fl (80-100); Mean Platelet Volume 10.1 fl (7.4-10.4); Platelet Count Result 273 k/mm3 (150-375); Red Blood Count 3.94 M/mm3 (4.2-5.4); Red Cell Distribution Width 12.9 % (11.5-14.5); White Blood Count 7.1 K/mm3 (4.5-10.0)
[2023-03-23 15:38] LABS: Alanine Aminotransferase 32 U/L (6-35); Albumin Level 4.2 g/dL (3.5-5.1); Alkaline Phosphatase 51 U/L (38-126); Anion Gap 6 mmol/L (8-16); Aspartate Amino Transferase 30 U/L (14-36); Bilirubin,Total 0.4 mg/dL (0.2-1.3); Blood Urea Nitrogen 21 mg/dL (7-17); CRP 1.8 mg/dL (<1.0); Calcium 8.8 mg/dL (8.4-10.2); Carbon Dioxide 26 mmol/L (22-30); Chloride 98 mmol/L (98-107); Estimated Glomerular Filt Rate > 60; Glucose 107 mg/dL (65-110); Potassium 4.1 mmol/L (3.4-5.0); Sodium 130 mmol/L (137-145)
[2023-03-23 15:44] LABS: Total Protein Urine Random < 5 mg/dL; Ur Ttl Prot Creatinine Ratio < 0.03 mg/mg (0-0.20)
[2023-03-23 15:59] LABS: Erythrocyte Sedimentation Rate 16 mm/hr (0-20)
[2023-03-23 16:00] LABS: Complement C3 107 mg/dL (88-165)
[2023-03-29 04:20] LABS: Lupus dRVVT Screen 39 sec (<=45); PTT-LA Screen 31 sec (<=40)
[2023-03-30 03:24] LABS: Anti Cardio Antibody IgM <2.0 MPL-U/mL (<20.0); Anti Cardiolipin Antibody IgA <2.0 APL-U/mL (<20.0); Anti Cardiolipin Antibody IgG <2.0 GPL-U/mL (<20.0)
== END 2023-03-23 14:48 | disposition home or self-care (01) ==
LOC: ANHLAB 14:49
PROVIDERS: PCP Family Medicine; Visit Provider Internal Medicine
DX: M32.9 Systemic lupus erythematosus, unspecified (principal); M19.90 Unspecified osteoarthritis, unspecified site
CPT/HCPCS: 36415; 80053; 82570; 84156; 85027; 85613; 85652; 85730; 86140; 86146; 86147; 86160

== ENCOUNTER 2023-05-10 21:04 | Emergency (ER) | payer OTHER, SELFPAY ==
[2023-05-10 21:06] VITALS: BP 140/98; PULSE 66; RESP 19; TEMP 36.4; O2SAT 95
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
[2023-05-10] MEDS: methocarbamoL 500 MG TABLET 1000 MG PO (21:29)
[2023-05-10] MEDS: ACETAMINOPHEN 500 MG TABLET 1000 MG PO (21:30)
[2023-05-10] MEDS: KETOROLAC (*BKC) 60 MG/2 ML VIAL IM (21:31)
[2023-05-10 21:55] VITALS: BP 137/95; PULSE 64; RESP 16; O2SAT 100
== END 2023-05-10 21:57 | disposition home or self-care (01) ==
PROVIDERS: Emergency Provider Emergency Medicine; PCP Family Medicine
DX: S16.1XXA Strain of muscle, fascia and tendon at neck level, initial encounter (principal); G44.209 Tension-type headache, unspecified, not intractable; I10 Essential (primary) hypertension; Z87.891 Personal history of nicotine dependence; V40.5XXA Car driver injured in collision with pedestrian or animal in traffic accident, initial encounter
CPT/HCPCS: 96372; 99283; A9270; J1885

== ENCOUNTER 2023-05-19 12:24 | Outpatient (CLI) | payer OTHER, SELFPAY ==
--- NOTE | ~2023-05-19 | XR_ITS ---
EXAMINATION:XR_[id number]_CR DATE: 05/19/2023 12:45 INDICATION: Neck pain TECHNIQUE: AP, lateral, and odontoid views of the cervical spine are provided. COMPARISON: None FINDINGS: Alignment is normal. The odontoid process is intact. No fracture is identified. There are i nterbody devices at C3-4, C4-5, and C5-6. The vertebral body heights are maintained. There is severe loss of intervertebral disc space height at C6-7. Small degenerative osteophytes project from the ant erior endplates of multiple vertebral bodies. There is moderate multilevel facet and uncovertebral alina int osteoarthritis. Prevertebral soft tissues are normal. IMPRESSION: 1. Surgical changes and moderate cervical spondylosis without acute findings. Reviewed, dictated and finalized at location F.
== END 2023-05-19 12:25 | disposition home or self-care (01) ==
PROVIDERS: PCP Family Medicine; Visit Provider Nurse Practitioner Family
DX: M47.892 Other spondylosis, cervical region (principal)
CPT/HCPCS: 72040

== ENCOUNTER 2023-05-24 15:31 | Outpatient (CLI) | payer OTHER, SELFPAY ==
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
== END 2023-05-24 15:32 | disposition home or self-care (01) ==
LOC: ANHIMG 15:33
PROVIDERS: PCP Family Medicine; Visit Provider Nurse Practitioner Family
DX: R51.9 Headache, unspecified (principal)
CPT/HCPCS: 70450

== ENCOUNTER 2023-06-30 09:25 | Outpatient (CLI) | payer OTHER, SELFPAY ==
[2023-06-30 10:29] LABS: Basophils Absolute Auto 0.1 K/mm3 (0.0-0.1); Basophils Percent Auto 0.8 % (0.2-1.2); Eosinophils Absolute Auto 0.1 K/mm3 (0-0.3); Eosinophils Percent Auto 0.7 % (0-4.4); Hematocrit 45.7 % (37.0-47.0); Hemoglobin 14.2 g/dL (12.0-15.0); Immature Granulocyte Absolute 0.03 K/mm3 (0.00-0.031); Immature Granulocyte Percent A 0.3 % (0-0.5); Lymphocytes Absolute Auto 1.79 K/mm3 (0.9-3.2); Lymphocytes Percent Auto 20.9 % (18.3-44.2); Mean Corpuscular HGB Conc 31.1 g/dl (32-36); Mean Corpuscular Hemoglobin 30.9 pg (26-34); Mean Corpuscular Volume 99.3 fl (80-100); Mean Platelet Volume 10.4 fl (7.4-10.4); Monocytes Absolute Auto 0.8 K/mm3 (0.1-0.6); Monocytes Percent Auto 8.7 % (2.6-8.5); Neutrophils Absolute Auto 5.9 K/mm3 (1.3-6.7); Neutrophils Percent Auto 68.6 % (45.5-73.1); Platelet Count Result 355 k/mm3 (150-375); Red Cell Distribution Width 13.8 % (11.5-14.5); White Blood Count 8.6 K/mm3 (4.5-10.0)
[2023-06-30 10:47] LABS: Alanine Aminotransferase 46 U/L (6-35); Albumin Level 4.7 g/dL (3.5-5.1); Alkaline Phosphatase 51 U/L (38-126); Anion Gap 7 mmol/L (8-16); Aspartate Amino Transferase 36 U/L (14-36); Bilirubin,Total 0.5 mg/dL (0.2-1.3); Blood Urea Nitrogen 15 mg/dL (7-17); CRP < 0.5 mg/dL (<1.0); Calcium 10.2 mg/dL (8.4-10.2); Carbon Dioxide 35 mmol/L (22-30); Chloride 96 mmol/L (98-107); Creatine Kinase 101 U/L (30-135); Estimated Glomerular Filt Rate > 60; Glucose 116 mg/dL (65-110); Potassium 3.8 mmol/L (3.4-5.0); Sodium 138 mmol/L (137-145)
[2023-06-30 11:04] LABS: Erythrocyte Sedimentation Rate 6 mm/hr (0-20)
[2023-06-30 12:46] LABS: Appearance Urine Cloudy (Clear); Bacteria Urine None Seen /hpf; Bilirubin Urine 1+ (Negative); Blood Urine Negative (Negative); Color Urine Dark Yellow (Yellow); Glucose Urine UA Negative (Negative); Ketones Urine Trace mg/dL (Negative); Leukocyte Esterase Ur Negative LEU/UL (Negative); Need Manual Microscopic Reviewed; Nitrate Urine Negative (Negative); Protein Urine Negative (Negative); Specific Grav Ur 1.019 (1.001-1.035); Squamous Epithelial Cell Urine Occasional /hpf (Few); WBC Urine 0-5 /hpf
[2023-06-30 12:54] LABS: Add Urine Microscopic? YES
[2023-07-05 03:44] LABS: Aldolase 5.4 U/L (<=8.1)
== END 2023-06-30 09:26 | disposition home or self-care (01) ==
PROVIDERS: PCP Family Medicine; Visit Provider Internal Medicine
DX: M32.9 Systemic lupus erythematosus, unspecified (principal); M19.90 Unspecified osteoarthritis, unspecified site
CPT/HCPCS: 36415; 80053; 81001; 82085; 82550; 85025; 85652; 86140

== ENCOUNTER 2023-09-21 13:07 | Outpatient (CLI) | payer OTHER, SELFPAY ==
--- NOTE | ~2023-09-21 | XR_ITS ---
AP view of the pelvis and AP and lateral views of the bilateral hips Clinical history: Pain Findings: No acute fracture or dislocation is seen. Osseous alignment is anatomic. Bilateral hip and SI joint spaces are preserved. Soft tissues are unremarkable. Impression: No significant abnormality is seen. Reviewed, dictated and finalized at [facility]. R OPERATOR AUTOMATIC Impression: No significant abnormality is seen.
== END 2023-09-21 13:08 | disposition home or self-care (01) ==
LOC: ANHIMG 13:10
PROVIDERS: PCP Family Medicine; Visit Provider Anesthesiology Pain Medicine
DX: M16.9 Osteoarthritis of hip, unspecified (principal)
CPT/HCPCS: 73521

== ENCOUNTER 2023-09-25 10:29 | Outpatient (CLI) | payer OTHER, SELFPAY ==
--- NOTE | ~2023-09-25 | XR_ITS ---
EXAMINATION: XR lumbar spine 6V w bending DATE: 09/25/2023 10:51 INDICATION: Chronic low back pain. TECHNIQUE: 9 views of lumbar spine including flexion and extension views and standing views were obta ined. COMPARISON: Lumbar spine radiographs 08/04/2018 FINDINGS: There is 17 degrees levoscoliosis of lumbar spine. There is 4 mm retrolisthesis of L2 on L3 and 4 mm anterolisthesis of L4 on L5. There are changes of disc replacement at L5-S1. Vertebral body heights are normal. There is mildly decreased disc height at L1-L2. There is severely decreased disc height at L2-L3 that widens with extension. There is mildly decreased disc height at L3-L4 and moder ately decreased disc height at L4-L5. There is multilevel mild facet joint osteoarthritis. There is s evere facet joint osteoarthritis bilaterally at L4-L5 and L5-S1. There is moderate facet joint osteoa rthritis on the left at L3-L4. Retained epidural electrodes are noted. An electronic device overlies left abdomen with electrodes beyond the superior margin of the radiographs. Surgical clips in the rig ht upper quadrant are likely from cholecystectomy. IMPRESSION: 1. Severe lumbar spondylosis. 2. Disc replacement at L5-S1. 3. Lumbar levoscoliosis. Reviewed, dictated and finalized at location A. 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
== END 2023-09-25 10:30 | disposition home or self-care (01) ==
LOC: ANHASCIMG 10:31
PROVIDERS: PCP Family Medicine; Visit Provider Anesthesiology Pain Medicine
DX: M96.1 Postlaminectomy syndrome, not elsewhere classified (principal); G89.29 Other chronic pain; M47.896 Other spondylosis, lumbar region
CPT/HCPCS: 72114

== ENCOUNTER 2023-10-02 13:01 | Outpatient (CLI) | payer OTHER, SELFPAY ==
[2023-10-02 14:19] LABS: Appearance Urine Clear (Clear); Bilirubin Urine Negative (Negative); Blood Urine Negative (Negative); Color Urine Yellow (Yellow); Glucose Urine UA Negative (Negative); Ketones Urine Negative (Negative); Leukocyte Esterase Ur Negative LEU/UL (Negative); Nitrate Urine Negative (Negative); Protein Urine Negative (Negative); Specific Grav Ur 1.011 (1.001-1.035); Urobilinogen Urine 0.2 mg/dL (<2.0)
[2023-10-02 14:40] LABS: Alanine Aminotransferase 39 U/L (6-35); Alkaline Phosphatase 56 U/L (38-126); Anion Gap 3 mmol/L (8-16); Aspartate Amino Transferase 41 U/L (14-36); Bilirubin,Total 0.4 mg/dL (0.2-1.3); Blood Urea Nitrogen 17 mg/dL (7-17); Calcium 9.8 mg/dL (8.4-10.2); Carbon Dioxide 31 mmol/L (22-30); Chloride 99 mmol/L (98-107); Creatine Kinase 134 U/L (30-135); Estimated Glomerular Filt Rate > 60; Glucose 118 mg/dL (65-110); Potassium 3.7 mmol/L (3.4-5.0); Sodium 133 mmol/L (137-145)
[2023-10-02 14:41] LABS: Add Urine Microscopic? NO
[2023-10-08 05:09] LABS: Aldolase 7.2 U/L (<=8.1)
== END 2023-10-02 13:02 | disposition home or self-care (01) ==
LOC: ANHLAB 13:02
PROVIDERS: PCP Family Medicine; Visit Provider Internal Medicine
DX: M32.9 Systemic lupus erythematosus, unspecified (principal); M19.90 Unspecified osteoarthritis, unspecified site
CPT/HCPCS: 36415; 80053; 81003; 82085; 82550

== ENCOUNTER 2023-11-28 14:25 | Outpatient (CLI) | payer OTHER, SELFPAY ==
--- NOTE | ~2023-11-28 | MM_ITS ---
EXAMINATION: MM screening kash BI w tripp HISTORY: Screening mammogram TECHNIQUE: Craniocaudal and mediolateral oblique 3-D tomosynthesis images were obtained and synthetic 2-D images were generated. CAD analysis was submitted and interpreted. COMPARISON: 08/24/2022, 07/12/2021 bilateral screening mammogram examinations BREAST PARENCHYMAL COMPOSITION: The breasts are almost entirely fatty. FINDINGS: There is no evidence of suspicious mass, calcification, or architectural distortion to sugg est malignancy in either breast. There has been no suspicious interval change. IMPRESSION: 1. No mammographic evidence of malignancy. 2. Recommend routine screening mammography in one year. BI-RADS Category 1: Negative Reviewed, dictated and finalized at location A.
== END 2023-11-28 14:26 | disposition home or self-care (01) ==
PROVIDERS: PCP Family Medicine; Visit Provider Family Medicine
DX: Z12.31 Encounter for screening mammogram for malignant neoplasm of breast (principal)
CPT/HCPCS: 77063; 77067

== ENCOUNTER 2023-12-25 01:23 | Day surgery (SDC) | payer OTHER, SELFPAY ==
[2023-12-21 15:00] VITALS: BMI 28.3
--- NOTE | 2023-12-21 15:08 | PC.NURSE ---
Report to the Outpatient Waiting Room, entrance under the green pavilion located off [facility], at time _1100_ on date _[id number]_. Planned Procedure Time: _1200_. Time changes happen often and if your time is changed the preop area will call you the afternoon before. - You and your visitor will be asked to self-screen and do not enter if you have any COVID symptoms. - A mask is optional within the hospital at this time. Ok for breakfast, nothing to eat or drink after 10am. Ok to take morning medications with breakfast as usual. DO NOT STOP ANY OF YOUR OTHER PRESCRIPTION MEDICATIONS PRIOR TO SURGERY ?EXCEPT THE FOLLOWING Medications to discontinue per physician Patient plans to hold aspirin.____ Date to take last dose Please no make-up, nail romanian, hairspray, perfume, deodorant, or body powder the day of surgery. No jewelry (including any body piercings) or valuables the day of surgery, leave them at home. Please take a shower or bath the night before, or the morning of, surgery with an antibacterial soap. Wear comfortable, loose fitting clothing. - Jewelry must be removed prior to entering the operating room. Rings and piercings that are not removed may be cut off. - The hospital will not accept responsibility for valuables. - Please leave all valuables, including medications, at home the day of surgery. If you are going home after surgery, a licensed [place] driver must drive you home. - NO public transportation without another adult if you receive anesthesia. - We recommend that an adult stay with you for 24 hours following discharge. - We also recommend that you do not drive, make important decision, drink alcoholic beverages, or take any drugs that were not prescribed by your health care provider for at least 24 hours after your discharge time. Follow any additional instructions given to you from your surgeon. If you or anyone in your household have experienced Covid symptoms in the past week, please notify your surgeon or the nurse liaison at the phone number below for possible testing. Telephone instructions given to _Hui__and asked if any additional questions and then verbalized understanding. Patient advised to call surgeon office or pre surgery nurse liaison [phone] if any additional questions.
--- NOTE | ~2023-12-25 | XR_ITS ---
EXAMINATION: XR fluoroscopy no charge DATE: 12/25/2023 14:21 INDICATION: Dorsal ramus blocks TECHNIQUE: 9 fluoroscopic images of the lumbar spine were obtained during procedure performed by Dr. Dejesus. Radiologist was not present for the imaging or procedure. The amount of fluoroscopy time used d uring this procedure was 0.5 minutes. COMPARISON: None. FINDINGS: Images demonstrate spinal needles advanced with the distal tips projecting along the superolateral ma rgins of the junction of the transverse processes and superior articular process on both the left and right at L4, L5 and S1. L5-S1 prosthetic disc. IMPRESSION: 1. Fluoroscopy utilized during bilateral L3, L4 and L5 due to branch/dorsal ramus blocks. See procedu re note for further detail. Reviewed, dictated and finalized at location A. IMPRESSION: 1. Fluoroscopy utilized during bilateral L3, L4 and L5 due to branch/dorsal rubin us blocks. See procedure note for further detail.
[2023-12-25 12:35] VITALS: BP 137/81; PULSE 95; RESP 14; TEMP 36.1; O2SAT 96
[2023-12-25 12:37] VITALS: BMI 29.3
--- NOTE | 2023-12-25 13:22 | PM.HPGS ---
History of Present Illness History of Present Illness Consent: Risks, benefits, and alternatives have been discussed and questions answered. Patient agrees to proceed with procedure. Chief complaint: Spondylosis without Myelopathy or Radiculopathy Narrative: Hui Sutherland is a 53 year old female with chronic, recalcitrant and disabling bilateral lumbosacral back pain secondary to degenerative spondylosis with failure to respond to aggressive conservative measures including PT, oral and topical analgesics, opioid and nonopioid analgesics, rest, time and activity/behavioral modification over the past 1-2 years who presents for diagnostic/prognostic medial branch blocks (#1) under fluoroscopic guidance and with contrast control. Review of Systems Review of Systems: Patient denies any new infectious, allergic, cardiopulmonary, neurologic or constitutional symptoms or changes in activity tolerance or exercise capacity including new or progressive SOB/LINDSAY, peripheral edema, productive cough, dysuria, nausea/vomiting, diarrhea, weight change, fevers/chills/night sweats, new or progressive neurologic deficit, cognitive or mood changes since last seen, except as documented in the HPI. All systems reviewed & are unremarkable except as noted in HPI and below PMFSH Past Medical History Medical History (Updated 12/12/23 @ 08:59 by Bri Soliz) Adenomatous colon polyp LEIGH positive Arthritis Atrophy of quadriceps femoris muscle Back pain spinal cord stimulator- left lower back Bilateral hand pain Chronic neck and back pain Degenerative joint disease of knee, right Dysuria Edema of left lower extremity Effusion of knee joint Essential (primary) hypertension Fatigue GERD (gastroesophageal reflux disease) History of colon polyps Intractable migraine without status migrainosus Irritable bowel syndrome with constipation IT band syndrome Left knee Lupus (systemic lupus erythematosus) Metacarpophalangeal joint pain of left hand Myalgia Post-menopausal Prediabetes Trochanteric bursitis of right hip Urge incontinence Vitamin D deficiency Surgical History Surgical History History of abdominoplasty 2009 History of arthroplasty disc - L5-S1 - 2008 & C4-6 - 2009 History of cholecystectomy 1999 History of hysterectomy 2000 Hx of section 1988 & 1996 Hx of endoscopy Hx of left inguinal hernia repair robo assisted LIH repair with mesh on 08/01/22 Hx of tonsillectomy 1985 Family History Family History Grandparent Hypertension Family history of alcoholism Carcinoma of colon Family history of throat cancer Family history of malignant neoplasm of ovary Father Family history of alcoholism Family history of cardiovascular disease Cerebrovascular accident Hypertension Mother Family history of lung cancer Family history of malignant neoplasm of ovary Hypertension Other Family history of arthritis Family history of malignant neoplasm Social History Social History Smoking packs per day: 0.5 Smoking cigarettes per day: 10.0 Years smoked: 22 Smoking pack-years: 11.00 Smoking status: Former smoker Tobacco type: cigarettes Second hand tobacco smoke exposure: No Smoking end date: 12/20/08 Alcohol intake: never Substance use: current Substance use type: marijuana Other substance usage details: at night Last use: occasionally Lack of Transportation: No Lack of Food: Never True Current Housing: I Have Housing Concerned About Future Housing: No Difficulty Paying Gas/Electric Bills: No Difficulty Paying for Meds: No Currently Unemployed: No Education: Associate Degree Difficulty w/ Childcare or Family Care: No Living arrangements: with family Occupation/Education: occupation Additional occupation/education co
--- NOTE | 2023-12-25 13:27 | WPDHPUPDATE1 ---
History and Physical Update Update Date/Time: 12/25/23 13:27 History and Physical has been reviewed, including an updated exam of the patient. There are NO changes in the patient's condition. Risks, benefits, and alternatives have been discussed and questions answered. Patient agrees to proceed with procedure.
--- NOTE | 2023-12-25 13:30 | W.PM.PROC2 ---
Procedure Note - Detailed Date of Procedure 12/25/23 Pre-op Diagnosis Spondylosis without Myelopathy or Radiculopathy Post-op Diagnosis Same Procedure Performed Diagnostic Bilateral Lumbar Medial Branch/Dorsal Ramus Blocks at L3, L4, L5 Treating the Ipsilateral L4-5, L5-S1 Facet Joints Under Fluoroscopic Guidance and with Contrast Control. (2 levels blocked). Surgeon Lino Dejesus MD Anesthesia Local Description of Procedure INFORMED CONSENT: Risks, benefits and alternatives to the procedure were discussed in detail with the patient who expressed explicit understanding and consent to proceed. Patient was informed verbally and in written form regarding the risks associated with the procedure including the low risk of serious infection, bleeding/bruising, allergic reaction, nerve or organ injury, paralysis, procedural site pain or discomfort, worsening pain and/or mobility, failure to treat and/or disfigurement. The patient expressed explicit understanding and consent to proceed. All materials required for the procedure were available prior to procedure start. Site and side were marked prior to procedure and confirmed in the presence of the patient. PROCEDURE IN DETAIL: The patient was brought to the procedural suite and placed in the prone position. Patient was made comfortable with use of pillows under the head/chest, hips and ankles. Skin overlying the injection site on the affected side(s) was prepared broadly with ChloraPrep applicator and draped in a sterile manner. Aseptic technique was used throughout. The endplates of the vertebral bodies at the site(s) of interest were aligned in the AP view. Ipsilateral oblique angulation was utilized to optimize visualization of the intersection between the superior articulating process and transverse process at each target site. Local anesthesia was established by infiltration with approximately 5 mL of 1% lidocaine via a 1-1/2 inch 27-gauge needle. A 25-gauge 3.5 inch Quincke spinal needle was advanced until the needle tip contacted periosteum at the target site, right L3. Lateral view was utilized to confirm the appropriate placement of the needle tip just anterior to the facet line and superior to the pedicle. In the Lateral view, 0.25 mL of Omnipaque 300 contrast medium was injected after negative aspiration for CSF, blood or other bodily fluid, showing appropriate extra-articular spread of contrast without evidence of intravascular, foraminal or intrathecal placement. A 0.5 mL solution of 0.5% PF bupivacaine was injected after negative repeat aspiration. Appropriate spread of the injectate was confirmed with washout of previously injected contrast. No parasthesias were elicited. Needle was removed completely intact without difficulty. The same exact procedure was repeated for all remaining levels on the ipsilateral side, right L4, L5 medial branches/dorsal ramus, modified as necessary to accommodate for the new target location with identical findings and results and no evidence of complication. The same exact procedure was repeated for all remaining levels on the contralateral side, left L3, L4, L5 medial branches/dorsal ramus, modified as necessary to accommodate for the new target location with identical findings and results and no evidence of complication. Images were saved and documented in the patient chart. Patient's skin was cleaned and sterile bandage applied. The patient tolerated the procedure well. The patient was transported to the recovery area in stable condition where they were observed for an appropriate amount of time prior to discharge, without evidence of complication. Patient was instructed on the appropriate completion of a pain diary over the next 12-24 hours. The patient was instructed to avoid excessive activity for the next 48 hours, including climbing and frequent use of stairs. Showers only for 48 hours. They were instructed not to drive or operate heavy machinery for 24 hours. They are
[2023-12-25 14:03] VITALS: BP 147/81; PULSE 82; RESP 16; TEMP 36.1; O2SAT 96
[2023-12-25] MEDS: BUPivacaine HCL 0.5% 10 ML AMP 3 ML INFILTRATE (14:07)
[2023-12-25 14:09] VITALS: BP 128/80; PULSE 79; RESP 16; O2SAT 96
[2023-12-25 14:18] VITALS: BP 140/86; PULSE 82; RESP 14; O2SAT 100
== END 2023-12-25 14:21 | disposition home or self-care (01) ==
PROVIDERS: PCP Family Medicine; Visit Provider Anesthesiology Pain Medicine
PROC: (CPT 64493; principal; 2023-12-25 13:30)
DX: M47.817 Spondylosis without myelopathy or radiculopathy, lumbosacral region (principal); I10 Essential (primary) hypertension; K21.9 Gastro-esophageal reflux disease without esophagitis; G43.919 Migraine, unspecified, intractable, without status migrainosus; M32.9 Systemic lupus erythematosus, unspecified; R73.03 Prediabetes; N39.41 Urge incontinence; E55.9 Vitamin D deficiency, unspecified; G89.29 Other chronic pain; M54.2 Cervicalgia; F12.90 Cannabis use, unspecified, uncomplicated; M17.11 Unilateral primary osteoarthritis, right knee; Z98.890 Other specified postprocedural states; Z79.82 Long term (current) use of aspirin; Z79.85 Long-term (current) use of injectable non-insulin antidiabetic drugs; Z79.52 Long term (current) use of systemic steroids; Z79.891 Long term (current) use of opiate analgesic; Z96.82 Presence of neurostimulator; Z90.49 Acquired absence of other specified parts of digestive tract; Z98.1 Arthrodesis status; Z86.010 Personal history of colon polyps; Z87.891 Personal history of nicotine dependence; Z80.0 Family history of malignant neoplasm of digestive organs; Z80.1 Family history of malignant neoplasm of trachea, bronchus and lung; Z80.41 Family history of malignant neoplasm of ovary; Z82.49 Family history of ischemic heart disease and other diseases of the circulatory system
CPT/HCPCS: 64493; 64494; 99199; Q9965

== ENCOUNTER 2024-02-19 02:16 | Day surgery (SDC) | payer OTHER, SELFPAY ==
[2024-02-13 13:25] VITALS: BMI 27.5
--- NOTE | 2024-02-13 13:26 | PC.NURSE ---
Report to the Outpatient Waiting Room, entrance under the green pavilion located off [facility], at time _1145_ on date _[id number]_. Planned Procedure Time: _1245_. Time changes happen often and if your time is changed the preop area will call you the afternoon before. - You and your visitor will be asked to self-screen and do not enter if you have any COVID symptoms. - A mask is optional within the hospital at this time. Ok to eat a light breakfast or early lunch. Nothing to eat or drink after 1045am. Take the following medications with a SIP of water the morning of surgery: ____Take medications. DO NOT STOP ANY OF YOUR OTHER PRESCRIPTION MEDICATIONS PRIOR TO SURGERY ?EXCEPT THE FOLLOWING Medications to discontinue per physician ____None Date to take last dose Please no make-up, nail welsh, hairspray, perfume, deodorant, or body powder the day of surgery. No jewelry (including any body piercings) or valuables the day of surgery, leave them at home. Please take a shower or bath the night before, or the morning of, surgery with an antibacterial soap. Wear comfortable, loose fitting clothing. - Jewelry must be removed prior to entering the operating room. Rings and piercings that are not removed may be cut off. - The hospital will not accept responsibility for valuables. - Please leave all valuables, including medications, at home the day of surgery. Ok to drive and do whatever else you feel up to after your proceedure. Follow any additional instructions given to you from your surgeon. If you or anyone in your household have experienced Covid symptoms in the past week, please notify your surgeon or the nurse liaison at the phone number below for possible testing. Telephone instructions given to __Hui__and asked if any additional questions and then verbalized understanding. Patient advised to call surgeon office or pre surgery nurse liaison [phone] if any additional questions.
--- NOTE | ~2024-02-19 | XR_ITS ---
EXAMINATION: XR fluoroscopy no charge DATE: 02/19/2024 10:22 INDICATION: Lumbar nerve block TECHNIQUE: 10 fluoroscopic images of the lumbar spine were obtained during procedure performed by Dr. Dejesus. Radiologist was not present for the imaging or procedure. The amount of fluoroscopy time used during this procedure was 0.6 minutes. COMPARISON: None. FINDINGS: There is been prior L5-S1 discectomy with prosthetic disc placement. 3. [place] are seen with distal tips and injected contrast projecting along the cephalad margin of th e junction of the transverse and superior articular processes bilaterally at L4, L5 and S1 along the expected course of the bilateral L3, L4 and L5 medial branch nerves. IMPRESSION: 1. Fluoroscopy utilized during pain management procedure the lower lumbar spine. See procedure note f or further detail. Reviewed, dictated and finalized at location B. IMPRESSION: 1. Fluoroscopy utilized during pain management procedure the lower lumbar spine . See procedure note for further detail.
[2024-02-19 09:02] VITALS: BP 139/91; PULSE 69; TEMP 36.4; O2SAT 98; BMI 28.3
--- NOTE | 2024-02-19 09:08 | WPDHPUPDATE1 ---
History and Physical Update Update Date/Time: 02/19/24 09:08 History and Physical has been reviewed, including an updated exam of the patient. There are NO changes in the patient's condition. Risks, benefits, and alternatives have been discussed and questions answered. Patient agrees to proceed with procedure.
--- NOTE | 2024-02-19 09:11 | W.PM.PROC2 ---
Procedure Note - Detailed Date of Procedure 02/19/24 Pre-op Diagnosis Spondylosis Lumbosacral Region, chronic low back pain Post-op Diagnosis Same Procedure Performed Diagnostic Bilateral Lumbar Medial Branch/Dorsal Ramus Blocks at L3, L4, L5 (#2) addressing the bilateral L4-5, L5-S1 Facet Joints Under Fluoroscopic Guidance and with Contrast Control. (4 levels blocked). Surgeon Lino Dejesus MD Anesthesia Local Description of Procedure INFORMED CONSENT: Risks, benefits and alternatives to the procedure were discussed in detail with the patient who expressed explicit understanding and consent to proceed. Patient was informed verbally and in written form regarding the risks associated with the procedure including the low risk of serious infection, bleeding/bruising, allergic reaction, nerve or organ injury, paralysis, procedural site pain or discomfort, worsening pain and/or mobility, failure to treat and/or disfigurement. The patient expressed explicit understanding and consent to proceed. All materials required for the procedure were available prior to procedure start. Site and side were marked prior to procedure and confirmed in the presence of the patient. PROCEDURE IN DETAIL: The patient was brought to the procedural suite and placed in the prone position. Patient was made comfortable with use of pillows under the head/chest, hips and ankles. Skin overlying the injection site on the affected side(s) was prepared broadly with ChloraPrep applicator and draped in a sterile manner. Aseptic technique was used throughout. The endplates of the vertebral bodies at the site(s) of interest were aligned in the AP view. Ipsilateral oblique angulation was utilized to optimize visualization of the intersection between the superior articulating process and transverse process at each target site. Local anesthesia was established by infiltration with approximately 5 mL of 1% lidocaine via a 1-1/2 inch 27-gauge needle. A 25-gauge 3.5 inch Quincke spinal needle was advanced until the needle tip contacted periosteum at the target site, right L3. Lateral view was utilized to confirm the appropriate placement of the needle tip just anterior to the facet line and superior to the pedicle. In the Lateral view, 0.25 mL of Omnipaque 300 contrast medium was injected after negative aspiration for CSF, blood or other bodily fluid, showing appropriate extra-articular spread of contrast without evidence of intravascular, foraminal or intrathecal placement. A 0.5 mL solution of 2.0% PF liidocaine was injected after negative repeat aspiration. Appropriate spread of the injectate was confirmed with washout of previously injected contrast. No parasthesias were elicited. Needle was removed completely intact without difficulty. The same exact procedure was repeated for all remaining levels on the ipsilateral side, right L4, L5 medial branches/dorsal ramus, modified as necessary to accommodate for the new target location with identical findings and results and no evidence of complication. The same exact procedure was repeated for all remaining levels on the contralateral side, left L3, L4, L5 medial branches/dorsal ramus, modified as necessary to accommodate for the new target location with identical findings and results and no evidence of complication. Images were saved and documented in the patient chart. Patient's skin was cleaned and sterile bandage applied. The patient tolerated the procedure well. The patient was transported to the recovery area in stable condition where they were observed for an appropriate amount of time prior to discharge, without evidence of complication. Patient was instructed on the appropriate completion of a pain diary over the next 12-24 hours. The patient was instructed to avoid excessive activity for the next 48 hours, including climbing and frequent use of stairs. Showers only for 48 hours. They were instructed not to drive or operate heavy machinery for 24 hours.
[2024-02-19 10:05] VITALS: BP 159/79; PULSE 69; RESP 16; O2SAT 97
[2024-02-19] MEDS: LIDOCAINE HCL 2% PF INJ 5 ML VIAL INFILTRATE (10:08)
[2024-02-19] MEDS: LIDOCAINE HCL 1% PF INJ 5 ML VIAL 10 ML INFILTRATE (10:09)
[2024-02-19 10:10] VITALS: BP 141/83; PULSE 66; RESP 14; O2SAT 97
[2024-02-19 10:15] VITALS: BP 140/86; PULSE 71; RESP 14; O2SAT 97
[2024-02-19 10:20] VITALS: BP 139/86; PULSE 72; RESP 14; O2SAT 99
== END 2024-02-19 10:42 | disposition home or self-care (01) ==
PROVIDERS: PCP Family Medicine; Visit Provider Anesthesiology Pain Medicine
PROC: (CPT 64493; principal; 2024-02-19 09:45)
DX: M47.817 Spondylosis without myelopathy or radiculopathy, lumbosacral region (principal); M96.1 Postlaminectomy syndrome, not elsewhere classified; I10 Essential (primary) hypertension; M32.9 Systemic lupus erythematosus, unspecified; R73.03 Prediabetes; E55.9 Vitamin D deficiency, unspecified; K21.9 Gastro-esophageal reflux disease without esophagitis; F12.90 Cannabis use, unspecified, uncomplicated; M70.61 Trochanteric bursitis, right hip; M70.62 Trochanteric bursitis, left hip; G89.29 Other chronic pain; Z87.891 Personal history of nicotine dependence
CPT/HCPCS: 64493; 64494; 64495; 99199; Q9965

== ENCOUNTER 2024-02-29 14:02 | Outpatient (CLI) | payer OTHER, SELFPAY ==
[2024-02-29 15:16] LABS: Hematocrit 40.8 % (37.0-47.0); Hemoglobin 12.9 g/dL (12.0-15.0); Mean Corpuscular HGB Conc 31.6 g/dl (32-36); Mean Corpuscular Hemoglobin 32.6 pg (26-34); Platelet Count Result 305 k/mm3 (150-375); Red Blood Count 3.96 M/mm3 (4.2-5.4); Red Cell Distribution Width 12.9 % (11.5-14.5); White Blood Count 6.6 K/mm3 (4.5-10.0)
[2024-02-29 16:21] LABS: Alanine Aminotransferase 34 U/L (6-35); Albumin Level 4.4 g/dL (3.5-5.1); Alkaline Phosphatase 53 U/L (38-126); Anion Gap 8 mmol/L (4-12); Aspartate Amino Transferase 34 U/L (14-36); Bilirubin,Total 0.5 mg/dL (0.2-1.3); Blood Urea Nitrogen 11 mg/dL (7-17); Calcium 9.5 mg/dL (8.4-10.2); Carbon Dioxide 32 mmol/L (22-30); Chloride 98 mmol/L (98-107); Estimated Glomerular Filt Rate > 60; Glucose 96 mg/dL (65-110); Potassium 4.1 mmol/L (3.4-5.0); Sodium 138 mmol/L (137-145)
== END 2024-02-29 14:03 | disposition home or self-care (01) ==
LOC: ANHLAB 14:04
PROVIDERS: PCP Family Medicine; Visit Provider Nurse Practitioner Family
DX: K59.00 Constipation, unspecified (principal)
CPT/HCPCS: 36415; 80053; 84443; 85027

== ENCOUNTER 2024-04-01 11:36 | Outpatient (CLI) | payer OTHER, SELFPAY ==
--- NOTE | 2024-04-01 12:02 | ECG_ITS ---
Test Date: 2024-04-01 12:09:34 Measurements Intervals [place] Rate: 62 P: 53 NC: 141 QRS: 25 QRSD: 99 T: 39 QT: 402 QTc: 411 Interpretive Statements SINUS RHYTHM NORMAL ELECTROCARDIOGRAM No previous ECG available for comparison Electronically Signed On 04-01-2024 12:38:58 CDT by Mika Frank M.D.
[2024-04-01 12:04] LABS: Basophils Absolute Auto 0.1 K/mm3 (0.0-0.1); Basophils Percent Auto 1.3 % (0.2-1.2); Eosinophils Absolute Auto 0.3 K/mm3 (0-0.3); Eosinophils Percent Auto 3.7 % (0-4.4); Hematocrit 40.4 % (37.0-47.0); Hemoglobin 12.6 g/dL (12.0-15.0); Immature Granulocyte Absolute 0.03 K/mm3 (0.00-0.031); Immature Granulocyte Percent A 0.4 % (0-0.5); Lymphocytes Absolute Auto 2.15 K/mm3 (0.9-3.2); Lymphocytes Percent Auto 27.7 % (18.3-44.2); Mean Corpuscular HGB Conc 31.2 g/dl (32-36); Mean Corpuscular Hemoglobin 32.7 pg (26-34); Mean Corpuscular Volume 104.9 fl (80-100); Mean Platelet Volume 9.5 fl (7.4-10.4); Monocytes Absolute Auto 0.7 K/mm3 (0.1-0.6); Neutrophils Absolute Auto 4.5 K/mm3 (1.3-6.7); Neutrophils Percent Auto 57.9 % (45.5-73.1); Platelet Count Result 305 k/mm3 (150-375); Red Blood Count 3.85 M/mm3 (4.2-5.4); Red Cell Distribution Width 13.2 % (11.5-14.5); White Blood Count 7.8 K/mm3 (4.5-10.0)
[2024-04-01 12:05] LABS: Add Urine Microscopic? NO; Appearance Urine Clear (Clear); Bilirubin Urine Negative (Negative); Blood Urine Negative (Negative); Color Urine Yellow (Yellow); Glucose Urine UA Negative (Negative); Ketones Urine Negative (Negative); Leukocyte Esterase Ur Negative LEU/UL (Negative); Nitrate Urine Negative (Negative); Protein Urine Negative (Negative); Specific Grav Ur 1.013 (1.001-1.035); Urobilinogen Urine 0.2 mg/dL (<2.0)
[2024-04-01 12:16] LABS: Anion Gap 7 mmol/L (4-12); Blood Urea Nitrogen 16 mg/dL (7-17); Calcium 9.7 mg/dL (8.4-10.2); Carbon Dioxide 32 mmol/L (22-30); Chloride 95 mmol/L (98-107); Estimated Glomerular Filt Rate > 60; Glucose 99 mg/dL (65-110); Sodium 134 mmol/L (137-145)
== END 2024-04-01 11:37 | disposition home or self-care (01) ==
PROVIDERS: PCP Family Medicine; Visit Provider Nurse Practitioner Family
DX: R79.89 Other specified abnormal findings of blood chemistry (principal); E55.9 Vitamin D deficiency, unspecified; E78.5 Hyperlipidemia, unspecified; I10 Essential (primary) hypertension; M32.9 Systemic lupus erythematosus, unspecified; M54.9 Dorsalgia, unspecified; M96.1 Postlaminectomy syndrome, not elsewhere classified; R53.83 Other fatigue; R76.8 Other specified abnormal immunological findings in serum
CPT/HCPCS: 36415; 80048; 81003; 85025; 93005

== ENCOUNTER 2024-05-29 10:01 | Outpatient (CLI) | payer OTHER, SELFPAY ==
[2024-05-29 11:19] LABS: Basophils Absolute Auto 0.1 K/mm3 (0.0-0.1); Basophils Percent Auto 0.7 % (0.2-1.2); Eosinophils Absolute Auto 0.1 K/mm3 (0-0.3); Eosinophils Percent Auto 0.8 % (0-4.4); Hematocrit 42.2 % (37.0-47.0); Hemoglobin 13.5 g/dL (12.0-15.0); Immature Granulocyte Absolute 0.02 K/mm3 (0.00-0.031); Immature Granulocyte Percent A 0.2 % (0-0.5); Lymphocytes Absolute Auto 2.26 K/mm3 (0.9-3.2); Mean Corpuscular Hemoglobin 32.6 pg (26-34); Mean Corpuscular Volume 101.9 fl (80-100); Mean Platelet Volume 9.5 fl (7.4-10.4); Monocytes Absolute Auto 0.6 K/mm3 (0.1-0.6); Monocytes Percent Auto 6.5 % (2.6-8.5); Neutrophils Absolute Auto 6.1 K/mm3 (1.3-6.7); Neutrophils Percent Auto 66.8 % (45.5-73.1); Platelet Count Result 292 k/mm3 (150-375); Red Blood Count 4.14 M/mm3 (4.2-5.4); Red Cell Distribution Width 13.2 % (11.5-14.5); White Blood Count 9.1 K/mm3 (4.5-10.0)
[2024-05-29 11:23] LABS: Add Urine Microscopic? NO; Appearance Urine Clear (Clear); Bilirubin Urine Negative (Negative); Blood Urine Negative (Negative); Color Urine Yellow (Yellow); Glucose Urine UA Negative (Negative); Ketones Urine Negative (Negative); Leukocyte Esterase Ur Negative LEU/UL (Negative); Nitrate Urine Negative (Negative); Protein Urine Negative (Negative); Specific Grav Ur 1.014 (1.001-1.035); Urobilinogen Urine 0.2 mg/dL (<2.0); pH Urine 6.5 (5.0-9.0)
[2024-05-29 11:29] LABS: INR 0.9; Prothrombin Time 12.5 Seconds (11.1-14.7)
[2024-05-29 11:30] LABS: Partial Thromboplastin Time 24.8 Seconds (22.3-36.8)
[2024-05-29 11:41] LABS: Albumin Level 4.4 g/dL (3.5-5.1); Anion Gap 8 mmol/L (4-12); Blood Urea Nitrogen 17 mg/dL (7-17); Calcium 9.7 mg/dL (8.4-10.2); Carbon Dioxide 30 mmol/L (22-30); Chloride 96 mmol/L (98-107); Estimated Glomerular Filt Rate > 60; Glucose 103 mg/dL (65-110); Sodium 134 mmol/L (137-145)
[2024-05-29 11:44] LABS: Urine Cotinine NEGATIVE
[2024-05-29 11:53] LABS: Hemoglobin A1C 5.2 % (<5.7)
[2024-05-29 12:40] LABS: MRSA (PCR) NOT DETECTED (NOT DETECTE)
== END 2024-05-29 10:02 | disposition home or self-care (01) ==
LOC: ANHSURGERY 10:04
PROVIDERS: PCP Family Medicine; Visit Provider Orthopaedic Surgery
DX: Z01.818 Encounter for other preprocedural examination (principal); M17.12 Unilateral primary osteoarthritis, left knee
CPT/HCPCS: 80048; 80307; 81003; 82040; 83036; 85025; 85610; 85730; 87641

== ENCOUNTER 2024-07-29 10:09 | Outpatient (CLI) | payer OTHER, SELFPAY ==
[2024-07-29 11:43] LABS: Add Urine Microscopic? NO; Appearance Urine Clear (Clear); Bilirubin Urine Negative (Negative); Blood Urine Negative (Negative); Color Urine Yellow (Yellow); Glucose Urine UA Negative (Negative); Ketones Urine Negative (Negative); Leukocyte Esterase Ur Negative LEU/UL (Negative); Nitrate Urine Negative (Negative); Protein Urine Negative (Negative); Specific Grav Ur 1.014 (1.001-1.035); Urobilinogen Urine 0.2 mg/dL (<2.0)
== END 2024-07-29 10:10 | disposition home or self-care (01) ==
PROVIDERS: PCP Family Medicine; Visit Provider Orthopaedic Surgery
DX: N39.0 Urinary tract infection, site not specified (principal)
CPT/HCPCS: 81003

== ENCOUNTER 2024-08-15 09:03 | Outpatient (CLI) | payer OTHER, SELFPAY ==
[2024-08-15 09:43] LABS: Basophils Absolute Auto 0.1 K/mm3 (0.0-0.1); Basophils Percent Auto 0.8 % (0.2-1.2); Eosinophils Absolute Auto 0.1 K/mm3 (0-0.3); Eosinophils Percent Auto 1.9 % (0-4.4); Hematocrit 41.6 % (37.0-47.0); Hemoglobin 13.2 g/dL (12.0-15.0); Immature Granulocyte Absolute 0.02 K/mm3 (0.00-0.031); Immature Granulocyte Percent A 0.3 % (0-0.5); Lymphocytes Absolute Auto 1.72 K/mm3 (0.9-3.2); Lymphocytes Percent Auto 23.2 % (18.3-44.2); Mean Corpuscular HGB Conc 31.7 g/dl (32-36); Mean Corpuscular Hemoglobin 32.8 pg (26-34); Mean Corpuscular Volume 103.2 fl (80-100); Mean Platelet Volume 9.6 fl (7.4-10.4); Monocytes Absolute Auto 0.9 K/mm3 (0.1-0.6); Monocytes Percent Auto 11.9 % (2.6-8.5); Neutrophils Absolute Auto 4.6 K/mm3 (1.3-6.7); Neutrophils Percent Auto 61.9 % (45.5-73.1); Platelet Count Result 309 k/mm3 (150-375); Red Blood Count 4.03 M/mm3 (4.2-5.4); Red Cell Distribution Width 12.9 % (11.5-14.5); White Blood Count 7.4 K/mm3 (4.5-10.0)
[2024-08-15 10:11] LABS: Prothrombin Time 13.1 Seconds (11.1-14.7)
[2024-08-15 10:12] LABS: Partial Thromboplastin Time 27.8 Seconds (22.3-36.8)
[2024-08-15 10:34] LABS: Albumin Level 4.5 g/dL (3.5-5.1); Anion Gap 3 mmol/L (4-12); Blood Urea Nitrogen 22 mg/dL (7-17); Calcium 10.1 mg/dL (8.4-10.2); Carbon Dioxide 32 mmol/L (22-30); Chloride 102 mmol/L (98-107); Estimated Glomerular Filt Rate > 60; Glucose 116 mg/dL (65-110); Potassium 3.7 mmol/L (3.4-5.0); Sodium 137 mmol/L (137-145)
[2024-08-15 10:36] LABS: Urine Cotinine NEGATIVE
== END 2024-08-15 09:04 | disposition home or self-care (01) ==
PROVIDERS: PCP Family Medicine; Visit Provider Orthopaedic Surgery
DX: M17.12 Unilateral primary osteoarthritis, left knee (principal); Z01.818 Encounter for other preprocedural examination
CPT/HCPCS: 80048; 80307; 82040; 85025; 85610; 85730; 86850; 86900; 86901; 87081

== ENCOUNTER 2024-08-27 00:40 | Day surgery (SDC) | payer OTHER, SELFPAY ==
--- NOTE | 2024-05-29 09:51 | PC.NURSE ---
Addendum entered by Morelia Duff RN 07/17/24 10:54: Called and reviewed pt meds, allergies and status, No changes. Noted dates for below, pt to be here at 0900am on 07/24/24 for 1100am surgery. Pt is aware takes meds as discussed below on date of surgery. She is holding the ASA and diclofenac for [address] Diallo. She took last doses of them yesterday 07/16/24. Pt is also to hold all of her lupus and RA meds per PCP and Rheumatoid service, pt stopped them last week on 07/10/24 and understands the instructions from them. Pt has her prior letter as below and will fill in dates and times and has no questions RMirtha Original Note: Report to the Outpatient Waiting Room, entrance under the green pavilion located off [facility], at time _TBD _ on date _TBD . Planned Procedure Time: __TBD .? Time changes happen often and if your time is changed the preop area will call you the afternoon before. - You and your visitor will be asked to self-screen and do not enter if you have any COVID symptoms. Please call surgeon if you need to reschedule. - A mask is optional within the hospital at this time. Patients may have clear liquids (water, carbonated beverages, clear teas, apple juice) until 3 hours prior to surgery with a maximum of 20 ounces. - No food from midnight until time of surgery and no smoking Take only the following medications with a SIP of water on the morning of surgery: _Amlodipine, Metoprolol, Gabapentin, Duloxetine, Cariprazine, Lamotrigine, Methocarbanol as needed, Cyclobenzaprine as needed, Tramadol as needed, DO NOT STOP ANY OF YOUR OTHER PRESCRIPTION MEDICATIONS PRIOR TO SURGERY EXCEPT THE FOLLOWING Medications to discontinue per physician ____Hold ASA and Diclofenac [address] Diallo instructions. Date to take last dose___Per New date of surgery Hold Sulfa & any RA /Lupus medications as instructed prior per PCP and Rheumatoid service. Date to take last dose_per new date of surgery Please no make-up, nail maori, hairspray, perfume, deodorant, or body powder the day of surgery.? No jewelry (including any body piercings) or valuables the day of surgery, leave them at home.? Please take a shower or bath the night before, or the morning of, surgery with an antibacterial soap.? Wear comfortable, loose fitting clothing.? - Jewelry must be removed prior to entering the operating room.? Rings and piercings that are not removed may be cut off. - The hospital will not accept responsibility for valuables.? - Please leave all valuables, including medications, at home the day of surgery. If you are going home after surgery, a licensed motor coach driver must drive you home.? - NO public transportation without another adult if you receive anesthesia. - We recommend that an adult stay with you for 24 hours following discharge. - We also recommend that you do not drive, make important decision, drink alcoholic beverages, or take any drugs that were not prescribed by your health care provider for at least 24 hours after your discharge time. Follow any additional instructions given to you from your surgeon. They will call pt with new date and time of Surgery. We will verify Meds/Hx via phone prior to new date. Telephone instructions given to _patient and asked if any additional questions and then verbalized understanding. Patient advised to call surgeon office or pre surgery nurse liaison [phone] if any additional questions.
[2024-05-29 10:32] VITALS: BP 141/80; PULSE 80; RESP 16; TEMP 36.7; O2SAT 99; BMI 29.9
--- NOTE | 2024-08-07 15:40 | PC.NURSE ---
Report to the Outpatient Waiting Room, entrance under the green pavilion located off [facility], at time __08:30am on date _08/27/2024 . Planned Procedure Time: _10:30am .? Time changes happen often and if your time is changed the preop area will call you the afternoon before. - You and your visitor will be asked to self-screen and do not enter if you have any COVID symptoms. Please call surgeon if you need to reschedule. - A mask is optional within the hospital at this time. Patients may have clear liquids (water, carbonated beverages, clear teas, apple juice) until 3 hours prior to surgery with a maximum of 20 ounces. - No food from midnight until time of surgery and no smoking. This includes no chewing gum, candy or mints.(0730am) Take only the following medications with a SIP of water on the morning of surgery: Amlodipine, Metoprolol, Gabapentin, Duloxetine, Cariprazine, Lamotriginie, Methocarbanol as needed , Tramadol as needed. DO NOT STOP ANY OF YOUR OTHER PRESCRIPTION MEDICATIONS PRIOR TO SURGERY EXCEPT THE FOLLOWING Medications to discontinue per physician ___HOLD ASPIRIN and DICLOFENAC 7 days prior per Date to take last dose____08/19/24 Hold Sulfa and any Rheumatoid Medications as instructed to you by your RA/PCP Date of last dose is 08/12/24- per pt voiced. Please no make-up, nail bolivian, hairspray, perfume, deodorant, or body powder the day of surgery.? No jewelry (including any body piercings) or valuables the day of surgery, leave them at home.? Please take a shower or bath the night before, or the morning of, surgery with an antibacterial soap.? Wear comfortable, loose fitting clothing.? - Jewelry must be removed prior to entering the operating room.? Rings and piercings that are not removed may be cut off. - The hospital will not accept responsibility for valuables.? - Please leave all valuables, including medications, at home the day of surgery. If you are going home after surgery, a licensed garbage collector driver must drive you home.? - NO public transportation without another adult if you receive anesthesia. - We recommend that an adult stay with you for 24 hours following discharge. - We also recommend that you do not drive, make important decision, drink alcoholic beverages, or take any drugs that were not prescribed by your health care provider for at least 24 hours after your discharge time. Follow any additional instructions given to you from your surgeon. Telephone instructions given to __Patient and asked if any additional questions and then verbalized understanding. Patient advised to call surgeon office or pre surgery nurse liaison [phone] if any additional questions.
[2024-08-27] VITALS (15 sets, daily range): BP systolic 113–154; BP diastolic 66–94; PULSE 72–98; RESP 14–20; TEMP 35.9–36.7; O2SAT 92–99
--- NOTE | ~2024-08-27 | XR_ITS ---
EXAMINATION: [id number] DATE: 08/27/2024 10:52 INDICATION: Left knee arthroplasty. Postop. TECHNIQUE: 2 views of left knee were obtained. COMPARISON: Left knee radiographs 05/27/2024 FINDINGS: There is a total left knee arthroplasty without patellar resurfacing in near-anatomic align ment. No fracture. There is a tiny osteophyte of the patella. There is gas in the knee joint and soft tissues, consistent with recent surgery. IMPRESSION: 1. Total left knee arthroplasty in near-anatomic alignment. Reviewed, dictated and finalized at location A. [facility] [employer]
--- NOTE | 2024-08-27 06:58 | P.PNAN_ITS ---
Anes - Initial Pre Proc Eval Procedure: Operation Date: 08/27/24 07:30 Proposed Procedures p Left Total Knee Arthroplasty - Nigel Diallo MD Date/Time: 08/27/24 06:58 Surgeon: Nigel Diallo MD Pre Op Diagnosis: left knee OA Patient Data Age: 54 Gender: F Height: 1.68 m Weight: 84.1 kg Last Vital Signs Temp 36.7 C 05/29/24 10:32 Pulse 80 05/29/24 10:32 Resp 16 05/29/24 10:32 BP 141/80 H 05/29/24 10:32 Pulse Ox 99 05/29/24 10:32 Allergies Allergy/AdvReac Type Severity Reaction Status Date / Time No Known Allergies Allergy Verified 08/12/24 08:56 Home Medications ?Medication ?Instructions ?Recorded ?Confirmed ?Type aspirin 81 mg tablet,delayed 81 mg PO DAILY 07/16/19 08/27/24 History release (Adult Low Dose Aspirin) sumatriptan succinate 100 mg tablet 100 mg PO BID PRN migraine 04/09/21 07/31/24 Rx headache #9 tabs erenumab-aooe 140 mg/mL 140 mg subcut MONTHLY 12/29/21 08/27/24 History subcutaneous auto-injector (Aimovig Autoinjector) diclofenac sodium 1 % topical gel 2 g topical QID 01/26/23 08/27/24 History (Arthritis Pain (diclofenac)) lamotrigine 200 mg tablet 200 mg PO DAILY 01/26/23 08/27/24 History cyclobenzaprine 10 mg tablet 10 mg PO TID 12/21/23 08/27/24 History diclofenac sodium 75 mg 75 mg PO BID 12/21/23 08/27/24 History tablet,delayed release sulfasalazine 500 mg 1,000 mg PO BID 12/21/23 08/27/24 History tablet,delayed release multivitamin 1 tablet PO DAILY 02/13/24 08/27/24 History hydrochlorothiazide 25 mg tablet 25 mg PO DAILY #90 tabs 02/15/24 08/27/24 Rx cariprazine 3 mg capsule (Vraylar) 3 mg PO DAILY 04/26/24 08/27/24 History omeprazole 40 mg capsule,delayed 40 mg PO DAILY 3 months #90 caps 05/01/24 08/27/24 Rx release hydroxyzine HCl 25 mg tablet 25 mg PO BID 05/29/24 08/27/24 History amlodipine 10 mg tablet 10 mg PO DAILY #90 tabs 06/18/24 08/27/24 Rx metoprolol succinate 100 mg 100 mg PO DAILY #90 tabs 06/18/24 08/27/24 Rx tablet,extended release 24 hr chlorhexidine gluconate 4 % 1 applic topical ONCE #237 mL 06/26/24 08/27/24 Rx topical liquid (Hibiclens) azathioprine 50 mg tablet 200 mg PO DAILY 07/31/24 08/27/24 History duloxetine 60 mg capsule,delayed 120 mg PO BID 07/31/24 08/27/24 History release (Cymbalta) gabapentin 300 mg capsule 300 mg PO TID 07/31/24 08/27/24 History golimumab 50 mg/0.5 mL 50 mg subcut MONTHLY 07/31/24 08/27/24 History subcutaneous pen injector tramadol 50 mg tablet 50 mg PO TID 07/31/24 08/27/24 History linaclotide 145 mcg capsule 145 mcg PO DAILY 08/07/24 08/27/24 History (Linzess) Patient hx anesthesia problems: none Family hx anesthesia problems: none Results Review: All pre-operative results and documents have been reviewed as part of the pre- operative evaluation. [facility] Past Medical History Medical History Nausea after anesthesia Degenerative joint disease of knee Constipation Dysuria Effusion of knee joint Atrophy of quadriceps femoris muscle Post-menopausal Lupus (systemic lupus erythematosus) Bilateral hand pain Degenerative joint disease of knee, right Fatigue Myalgia LEIGH positive GERD (gastroesophageal reflux disease) IT band syndrome Left knee Irritable bowel syndrome with constipation Metacarpophalangeal joint pain of left hand Chronic neck and back pain Essential (primary) hypertension Prediabetes Urge incontinence Edema of left lower extremity Intractable migraine without status migrainosus History of colon polyps Vitamin D deficiency Arthritis Trochanteric bursitis of right hip Adenomatous colon polyp Back pain spinal cord stimulator- left lower back Surgical History Surgical History Hx of left inguinal hernia repair (~07/2022) robo assisted LIH repair with mesh on 08/01/22 Hx of endoscopy History of abdominoplasty History of arthroplasty disc - L5-S1 - 2008 & C4-6 - 2010 Hx of tonsillectomy History of hysterectomy (~2000) History of cholecystectomy Hx of section 1988 & 1996 Family History Family History Grandparent Hypertension Family history of alcoholism Carcinoma of colon Family history of throat cancer Family history of malignant neoplasm of ovary Father Family history of alcoholism Family history of cardiovascular disease Cerebrovascular accident Hypertension Mother Family history of lung cancer Family history of malignant neoplasm of ovary Hypertension Other Family history of arthritis Family history of malignant neoplasm Social History Social History Smoking packs per day: 0.5 Smoking cigarettes per day: 10.0 Years smoked: 22 Smoking pack-years: 11.00 Smoking status: Former smoker Tobacco type: cigarettes Second hand tobacco smoke exposure: No Smoking end date: 12/20/08 Additional smoking assessment comments: Denies any Nicotine usage Alcohol intake: never Substance use: current Substance use type: marijuana Other substance usage details: gummies at night Last use: occasionally Do You Feel Safe in your Home?: Yes Lack of Transportation: No Lack of Food: Never True Current Housing: I Have Housing Concerned About Future Housing: No Difficulty Paying Gas/Electric Bills: No Difficulty Paying for Meds: No Currently Unemployed: No Education: Associate Degree Difficulty w/ Childcare or Family Care: No Living arrangements: with family Additional living arrangements comments: 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 Gender identity (if verbalized by the patient): Female Sexual Orientation (if Verbalized by the Patient): Straight or Heterosexual Spiritual care concerns: No Agree to blood products: Yes Anes - Eval Final PreProcedure Day of Procedure 08/27/24 06:58 Patient weight: overweight Heart: regular rate and rhythm Lungs: clear to auscultation Airway: Mallampati scale class II Neurological: alert and oriented Last oral intake: >/= 8 hours ASA classification: III Emergent: no Anesthetic plan: proceed Anesthesia type and monitoring: general LMA and standard monitoring Results Review: All pre-operative results and documents have been reviewed as part of the pre- operative evaluation. Informed Consent: The patient's anesthetic plan and its attendant risks and benefits were discussed with the patient/family/POA. Questions were solicited and answers provided to the satisfaction of the patient/family/POA.
[2024-08-27] MEDS: VANCOMYCIN 1,250 MG/NS 250 ML 1,250 MG/250 ML BAG 166.67 MG IVPB (07:01)
[2024-08-27] MEDS: SCOPOLAMINE 1 MG PATCH 1 PATCH TRANSDERM (07:01)
[2024-08-27] MEDS: LACTATED RINGERS 1,000 ML 30 ML IV CONT ×2 (07:01→10:27)
[2024-08-27] MEDS: ACETAMINOPHEN 500 MG TABLET 1000 MG PO (07:08)
[2024-08-27] MEDS: TRANEXAMIC ACID 1,000MG/ISO100 1,000 MG/100 ML BAG 200 MG IVPB (07:10)
--- NOTE | 2024-08-27 07:37 | WPDHPUPDATE1 ---
History and Physical Update Update Date/Time: 08/27/24 07:37 History and Physical has been reviewed, including an updated exam of the patient. There are NO changes in the patient's condition. Risks, benefits, and alternatives have been discussed and questions answered. Patient agrees to proceed with procedure.
[2024-08-27] MEDS: ceFAZolin 2 GM/D5W 50 ML 2 GM/50 ML BAG IVPB ×2 (07:56→16:57)
[2024-08-27] MEDS: SODIUM CHLORIDE 0.9% IV 37.7 ML, MORPHINE SULFATE INJ (*CRX) 2 MG, ROPivacaine HCL 1% 2... INFILTRATE (08:46)
[2024-08-27] MEDS: TRANEXAMIC ACID 1,000 MG/10 ML AMPUL 1000 MG IV PUSH (09:35)
[2024-08-27] MEDS: HYDROmorphone HCL INJ (*CRX) 1 MG/ML SYR 0.25 MG IV PUSH ×5 (10:53→11:29)
--- NOTE | 2024-08-27 12:40 | ADMGEN ---
This patient, Hui Sutherland, was admitted to [facility] Surg Room 332-01 at 1205. Patient/family oriented to hospital policies and general routines including ID bracelet, bed and alarms, visiting hours, pain management, procedures, bathroom and other care routines, personal items, smoking policy, room service/diet, and visiting hours. Information on how to activate the Rapid Response Team has been discussed. Patient/Family are encouraged to report perceived risks to care and to ask questions if they do not understand what they are told or what they should do.
[2024-08-27] MEDS: ASPIRIN 81 MG ENTERIC TABLET PO (12:50)
[2024-08-27] MEDS: polyethylene glycoL 3350 17 GM POWD.PACK PO (12:50)
[2024-08-27] MEDS: oxyCODONE/ACETAMINOPHEN (*CRX) 5-325 MG TABLET 1 TABLET PO (12:52)
[2024-08-27] MEDS: DULoxetine HCL 60 MG CAPSULE.DR 120 MG PO ×2 (12:52→16:58)
[2024-08-27] MEDS: CYCLOBENZAPRINE HCL 10 MG TABLET PO ×2 (12:53→16:58)
[2024-08-27] MEDS: METOPROLOL SUCCINATE EXT REL 100 MG TABCR PO (12:53)
[2024-08-27] MEDS: GABAPENTIN 300 MG CAPSULE PO ×2 (12:53→16:59)
[2024-08-27] MEDS: SENNA/DOCUSATE SODIUM TABLET 2 TAB PO ×2 (12:54→16:58)
[2024-08-27] MEDS: azaTHIOprine 50 MG TABLET 200 MG PO (12:54)
[2024-08-27] MEDS: FAMOTIDINE 20 MG TABLET PO ×2 (12:54→21:13)
[2024-08-27] MEDS: hydroCHLOROthiazide 25 MG TABLET PO (12:54)
[2024-08-27] MEDS: lamoTRIgine 100 MG TABLET 200 MG PO (12:54)
--- NOTE | 2024-08-27 12:54 | W.PM.PROC2 ---
Procedure Note - Detailed Date of Procedure 08/27/24 Pre-op Diagnosis left knee OA Post-op Diagnosis Same Procedure Performed L TKA Surgeon Nigel Diallo MD Anesthesia General Description of Procedure THE LEFT KNEE WAS PREPPED AND DRAPED IN THE STERILE FASHION. KNEE JOINT WAS IN RECURVATUM. A MIDLINE SKIN INCISION WAS MADE. A MEDIAL PARAPATELLAR ARTHROTOMY WAS MADE. THE PATELLA WAS EVERTED. THERE WAS TRICOMPARTMENT DJD. THERE WAS MINIMAL PATELLA DJD. AN INTRAMEDULLARY PRANAY WAS PLACED IN THE FEMUR. A DISTAL FEMORAL CUT WAS MADE IN 5 DEGREES OF VALGUS REMOVING APPROXIMATELY 8 MM OF BONE FROM THE DISTAL FEMUR. THE FEMUR WAS SIZED TO A 4. FEMORAL CUTTING BLOCK WAS PLACED IN 3 DEGREES OF EXTERNAL ROTATION AND IN ALIGNMENT WITH JORGE'S LINE AND THE TRANSEPICONDYLAR AXIS. ANTERIOR POSTERIOR AND CHAMFER CUTS WERE MADE. THE CUTS WERE EXCELLENT. NEXT AN INTRAMEDULLARY CUTTING GUIDE WAS PLACED IN THE TIBIA. A TRANS TIBIAL CUT WAS MADE ALONG THE LONG AXIS OF THE TIBIA. APPROXIMATELY 6 MM OF BONE WAS REMOVED FROM THE HIGH SIDE OF THE TIBIA. THE TIBIA WAS THEN PLANED TO A SMOOTH SURFACE. POSTERIOR FEMORAL OSTEOPHYTES WERE REMOVED FROM THE FEMORAL CONDYLES. A 3 TIBIAL TRIAL WAS PLACED IN ALIGNMENT WITH THE 1/3 MEDIAL ASPECT OF THE TIBIAL TUBERCLE. THEN A 4 FEMORAL TRIAL COMPONENT WAS PLACED. BOTH HAD EXCELLENT FITS. EVENTUALLY A 9 MM CR POLYETHYLENE TRIAL COMPONENT WAS PLACED. THE KNEE WAS TAKEN THROUGH A RANGE OF MOTION. THE KNEE CAME OUT TO FULL EXTENSION. THERE WAS NO ABNORMAL TILT TO THE PATELLA. THERE WAS GOOD A/P AND VARUS/VALGUS STABILITY. THERE WAS NO EXCESSIVE ROLL BACK WITH FLEXION. THE TRIAL COMPONENTS WERE REMOVED. THEN A PAT 4 FEMORAL COMPONENT AND 3 TIBIAL COMPONENT WITH A 9 MM POLYETHYLENE COMPONENT WERE PRESS FIT INTO PLACE. THE FIT WAS EXCELLENT AND FLUSH WITH THE BONE SURFACES. THE KNEE WAS TAKEN THROUGH A ROM AGAIN AND FOUND TO BE STABLE WITH NO PATELLA TILT NO EXCESSIVE ROLL BACK WITH FLEXION AND GOOD STABILITY WITH COMPLETE AND FULL EXTENSION AND NO RECURVATUM. THE KNEE WAS IRRIGATED WITH STERILE BETADINE AND WATER FOR ABOUT 3 MINUTES. THE BLEEDERS WERE CAUTERIZED. THE ARTHROTOMY WAS REPAIRED WITH NUMBER 1 VICRYL AND #2 QUIL. THE SUB CUTANEOUS LAYER WITH 2-0 VICRYL AND THE SKIN WITH 3-0 QUIL AND DERMABOND. THE WOUND WAS WASHED AND A STERILE DRESSING WAS APPLIED. PATIENT WAS EXTUBATED. Estimated Blood Loss -150.0 Pathology None sent Complications No immediate complications Condition Stable Disposition PACU
[2024-08-27] MEDS: ONDANSETRON INJ 4 MG/2 ML VIAL IV PUSH (12:55)
[2024-08-27] MEDS: amLODIPine BESYLATE 10 MG TABLET PO (12:55)
[2024-08-27] MEDS: hydrOXYzine HCL 25 MG TABLET PO ×2 (12:58→17:00)
[2024-08-27] MEDS: KETOROLAC 15 MG/ML VIAL (*BKC) IV PUSH ×2 (12:58→17:01)
--- NOTE | 2024-08-27 13:39 | PCPTNOTE ---
attempted PT evaluation 1340- pt was eating lunch; unable to perform at this time.
[2024-08-27] MEDS: ASPIRIN 325 MG TABLET PO (16:58)
[2024-08-27] MEDS: VANCOMYCIN 1,000 MG/NS 250 ML 1,000 MG/250 ML BAG 250 MG IVPB (18:06)
[2024-08-28] MEDS: KETOROLAC 15 MG/ML VIAL (*BKC) IV PUSH ×3 (00:20→11:48)
[2024-08-28] MEDS: ceFAZolin 2 GM/D5W 50 ML 2 GM/50 ML BAG IVPB ×2 (00:20→09:33)
[2024-08-28 05:42] VITALS: BP 125/76; PULSE 70; RESP 20; TEMP 36.1; O2SAT 98
[2024-08-28 06:56] LABS: Basophils Absolute Auto 0.1 K/mm3 (0.0-0.1); Basophils Percent Auto 0.5 % (0.2-1.2); Eosinophils Absolute Auto 0.1 K/mm3 (0-0.3); Eosinophils Percent Auto 0.7 % (0-4.4); Hematocrit 37.1 % (37.0-47.0); Hemoglobin 11.5 g/dL (12.0-15.0); Immature Granulocyte Absolute 0.03 K/mm3 (0.00-0.031); Immature Granulocyte Percent A 0.3 % (0-0.5); Lymphocytes Absolute Auto 2.59 K/mm3 (0.9-3.2); Lymphocytes Percent Auto 23.5 % (18.3-44.2); Mean Corpuscular Hemoglobin 32.1 pg (26-34); Mean Corpuscular Volume 103.6 fl (80-100); Monocytes Absolute Auto 1.2 K/mm3 (0.1-0.6); Monocytes Percent Auto 10.5 % (2.6-8.5); Neutrophils Absolute Auto 7.1 K/mm3 (1.3-6.7); Neutrophils Percent Auto 64.5 % (45.5-73.1); Platelet Count Result 268 k/mm3 (150-375); Red Blood Count 3.58 M/mm3 (4.2-5.4); Red Cell Distribution Width 12.2 % (11.5-14.5)
[2024-08-28 07:22] LABS: Anion Gap 3 mmol/L (4-12); Blood Urea Nitrogen 11 mg/dL (7-17); Calcium 8.5 mg/dL (8.4-10.2); Carbon Dioxide 35 mmol/L (22-30); Chloride 98 mmol/L (98-107); Estimated CRCL calculation 87 ml/min; Estimated Glomerular Filt Rate > 60; Glucose 103 mg/dL (65-110); Potassium 3.5 mmol/L (3.4-5.0); Sodium 136 mmol/L (137-145)
--- NOTE | 2024-08-28 09:30 | PC.NURSE ---
Multiple messages left for Pharmacy regarding the Vancomycin dose scheduled at 0700.
[2024-08-28] MEDS: polyethylene glycoL 3350 17 GM POWD.PACK PO (09:32)
[2024-08-28] MEDS: LINACLOTIDE 145 MCG CAPSULE PO (09:32)
[2024-08-28] MEDS: GABAPENTIN 300 MG CAPSULE PO ×3 (09:32→16:30)
[2024-08-28] MEDS: azaTHIOprine 50 MG TABLET 200 MG PO (09:32)
[2024-08-28] MEDS: hydroCHLOROthiazide 25 MG TABLET PO (09:32)
[2024-08-28] MEDS: amLODIPine BESYLATE 10 MG TABLET PO (09:33)
[2024-08-28] MEDS: FAMOTIDINE 20 MG TABLET PO (09:33)
[2024-08-28] MEDS: lamoTRIgine 100 MG TABLET 200 MG PO (09:33)
[2024-08-28] MEDS: DULoxetine HCL 60 MG CAPSULE.DR 120 MG PO ×2 (09:33→16:30)
[2024-08-28] MEDS: CYCLOBENZAPRINE HCL 10 MG TABLET PO ×3 (09:33→16:30)
[2024-08-28] MEDS: METOPROLOL SUCCINATE EXT REL 100 MG TABCR PO (09:33)
[2024-08-28] MEDS: SENNA/DOCUSATE SODIUM TABLET 2 TAB PO ×2 (09:33→16:30)
[2024-08-28] MEDS: ASPIRIN 325 MG TABLET PO ×2 (09:33→16:30)
[2024-08-28] MEDS: oxyCODONE/ACETAMINOPHEN (*CRX) 10-325 MG TABLET 1 TAB PO ×2 (09:38→15:01)
[2024-08-28 09:42] VITALS: BP 135/87; PULSE 71; RESP 18; TEMP 36.4; O2SAT 100
[2024-08-28] MEDS: hydrOXYzine HCL 25 MG TABLET PO ×2 (09:42→16:30)
[2024-08-28] MEDS: VANCOMYCIN 1,000 MG/NS 250 ML 1,000 MG/250 ML BAG 250 MG IVPB (12:45)
[2024-08-28 13:42] VITALS: BP 140/79; PULSE 71; RESP 18; TEMP 36.2; O2SAT 100
--- NOTE | 2024-08-28 14:29 | WPDANESPN ---
Anes - Prog Note Post-Op Date/Time: 08/28/24 14:29 Cardiovascular status: normal Respiratory status: normal Airway patency: baseline Mental status: baseline Post-Op hydration status: normal Vital Signs: Last Vital Signs Temp 97.5 F L 08/28/24 09:42 Pulse 71 08/28/24 09:42 Resp 18 08/28/24 09:42 BP 135/87 08/28/24 09:42 Pulse Ox 100 08/28/24 09:42 O2 Del Method Room Air 08/28/24 08:00 O2 Flow Rate 3 08/27/24 11:54 Pain Score (VAS): 0/10 I/O: Intake & Output 08/27/24 08/28/24 08/28/24 23:59 07:59 15:59 Intake Total 540 50 Balance 540 50 Laboratory Tests 08/28/24 05:58 08/28/24 05:58 08/28/24 05:58 WBC 11.0 H RBC 3.58 L Hgb 11.5 L Hct 37.1 MCV 103.6 H MCH 32.1 MCHC 31.0 L RDW 12.2 Plt Count 268 MPV 10.0 Immature Gran % (Auto) 0.3 Neut % (Auto) 64.5 Lymph % (Auto) 23.5 [place] % (Auto) 10.5 H Eos % (Auto) 0.7 Baso % (Auto) 0.5 Lymph # (Auto) 2.59 [place] # (Auto) 1.2 H Eos # (Auto) 0.1 Baso # (Auto) 0.1 Abs Immat Gran (auto) 0.03 Absolute Neuts (auto) 7.1 H Absolute Nucleated RBC 0.000 Nucleated RBC % 0.0 Sodium 136 L Potassium 3.5 Chloride 98 Carbon Dioxide 35 H Anion Gap 3 L BUN 11 D Creatinine 0.71 Estim Creat Clear Calc 87 Estimated GFR > 60 Glucose 103 Calcium 8.5 Post-procedural complaints: none Patient Feedback: Patient satisfied with anesthetic care.
[2024-08-28] MEDS: diazePAM (*CRX) 5 MG TABLET PO (15:01)
--- NOTE | 2024-08-28 16:20 | PM.DS ---
DS: Admitting Diagnosis Discharge Date 08/28/24 Admitting Diagnosis LEFT KNEE DJD DS: Discharge Diagnosis Discharge Diagnosis (1) Left knee DJD: Qualifiers: Osteoarthritis type: primary Qualified Code(s): M17.12 - Unilateral primary osteoarthritis, left knee Code(s): M17.12 - Unilateral primary osteoarthritis, left knee Status: Acute Assessment and Plan: POD 1 DOING WELL. SHE HAS GOOD PROGRESS WITH PT. OK TO DC HOME. SHE WILL F/U IN 3 WEEKS. DS: Summary Hospital Course Reason for hospitalization: LEFT TKA Hospital Course: PATIENT WAS ADMITTED S/P TOTAL KNEE ARTHROPLASTY FOR POSTOPERATIVE MEDICAL MANAGEMENT, PAIN CONTROL AND MOBILIZATION WITH PHYSICAL AND OCCUPATIONAL THERAPY. THE PATIENT PROGRESSED WELL WITH PT/OT. LABS AND VITALS REMAINED STABLE AND PAIN WELL CONTROLLED. THE PATIENT HAS BEEN CLEARED TO BE DISCHARGED HOME. FOLLOW UP APPOINTMENT SCHEDULED. DISCHARGE INSTRUCTIONS DISCUSSED AT LENGTH WITH THE PATIENT. MEDICATIONS REVIEWED. Status at Discharge Cognitive/behavioral status at discharge: STABLE Time Spent with Patient Time attestation: Total time spent providing and/or coordinating discharge services: Exam Narrative: VSS AFEBRILE DRESSING DRY NV INTACT NEG HOMANS SIGN CALF SOFT NON TENDER DS: Data Data Completed and Pending Labs on day of discharge: Labs from last 24 hours 08/28/24 05:58 WBC 11.0 H RBC 3.58 L Hgb 11.5 L Hct 37.1 MCV 103.6 H MCH 32.1 MCHC 31.0 L RDW 12.2 Plt Count 268 MPV 10.0 Immature Gran % (Auto) 0.3 Neut % (Auto) 64.5 Lymph % (Auto) 23.5 [place] % (Auto) 10.5 H Eos % (Auto) 0.7 Baso % (Auto) 0.5 Lymph # (Auto) 2.59 [place] # (Auto) 1.2 H Eos # (Auto) 0.1 Baso # (Auto) 0.1 Abs Immat Gran (auto) 0.03 Absolute Neuts (auto) 7.1 H Absolute Nucleated RBC 0.000 Nucleated RBC % 0.0 Sodium 136 L Potassium 3.5 Chloride 98 Carbon Dioxide 35 H Anion Gap 3 L BUN 11 D Creatinine 0.71 Estim Creat Clear Calc 87 Estimated GFR > 60 Glucose 103 Calcium 8.5 Procedures/Treatments: LEFT TKA Discharge Plan Discharge Patient Disposition: Home Health Service Discharge Instructions: Post Op Total Knee Replacement Instructions Dr. Nigel Diallo [phone] Your dressing will be changed prior to your discharge. You will be sent home with one additional dressing to be changed on post op day 7 by the home health RN. Your khanh will be removed on the 14th day after surgery and steri-strips will be placed. Please practice good hand hygiene and do not touch your incision in order to prevent infection. You may shower with your dressing but do not submerge in a bath tub. Do not drive or operate machinery until you are released by Dr. Diallo. Do not walk without a walker for any reason until you are released by Dr. Diallo. Continue to use your ice machine. Please use a towel or pillow case to protect your skin before applying your ice machine. Do NOT place a pillow under your knee. You may use a pillow from the calf down if needed. This will prevent a flexion contracture postoperatively. CPM: You may begin use of your CPM machine at home if you have been given one pre-operatively. DO NOT USE WHILE YOU ARE SLEEPING. [employer]: If you were given a [employer] Portable Connect System preoperatively, you are to begin use on the day you arrive home postoperatively. Our goal is for you to use the machine 5 times per day. The sessions are very short in the beginning and will progress as you progress. We are able to monitor your progress from afar as well as your pain and other reported symptoms. If you have difficulties with the machine, please call . 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 Your first post op appointment was sent to you via mail preoperatively. If you have any questions or are unable to make your appointment, please contact our office for scheduling questions. Your medications have been sent to your pharmacy. You have been sent home with pain medication. 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 Please keep this in mind during your postoperative recovery. If you are not experiencing regular bowel movements, please contact our office for further instruction. Please contact our office with any questions/concerns regarding your knee at [phone]. Patient Instructions: Antibiotic Form Patient Language: Wolof Stand Alone Forms: General Discharge Information Follow-up/Referrals: Nigel Diallo MD [Physician] - Keep Reg. Scheduled Appt. Discharge Medications: New aspirin 325 mg Tablet 325 mg PO BIDWM 28 Days Qty: 56 0RF oxycodone-acetaminophen [Percocet] 5-325 mg tablet 1 tablet PO Q6H PRN (Reason: pain) Qty: 30 0RF Continued Vraylar 3 mg capsule 3 mg PO DAILY gabapentin 300 mg capsule 300 mg PO TID duloxetine [Cymbalta] 60 mg capsule,delayed release(DR/EC) 120 mg PO BID sumatriptan succinate 100 mg tablet 100 mg PO BID PRN (Reason: migraine headache) Qty: 9 0RF Patient Comments: took about 6 months or more ago lamotrigine 200 mg tablet 200 mg PO DAILY Rx Instructions: and 100mg at HS diclofenac sodium [Arthritis Pain (diclofenac)] 1 % gel 2 g topical QID Rx Instructions: apply to single elbow, wrist or hand; for hand includes palm/fingers/back of hand golimumab 50 mg/0.5 mL pen injector 50 mg subcut MONTHLY Rx Instructions: It is an infusion she gets every other month Aimovig Autoinjector 140 mg/mL auto-injector 140 mg SUBCUT MONTHLY Rx Instructions: takes on the . multivitamin Tablet 1 tablet PO DAILY diclofenac sodium 75 mg tablet,delayed release (DR/EC) 75 mg PO BID Patient Comments: HOLD [address] Diallo cyclobenzaprine 10 mg tablet 10 mg PO TID sulfasalazine 500 mg tablet,delayed release (DR/EC) 1,000 mg PO BID Patient Comments: HOLD FROM [facility] Partida on 08/14/24 azathioprine 50 mg tablet 200 mg PO DAILY Patient Comments: HOLD it for two weeks before preop, per RA Elizabeth hydroxyzine HCl 25 mg tablet 25 mg PO BID Linzess 145 mcg capsule 145 mcg PO DAILY hydrochlorothiazide 25 mg tablet 25 mg PO DAILY Qty: 90 1RF omeprazole 40 mg capsule,delayed release(DR/EC) 40 mg PO DAILY 90 Days Qty: 90 3RF amlodipine 10 mg tablet 10 mg PO DAILY Qty: 90 1RF metoprolol succinate 100 mg tablet extended release 24 hr 100 mg PO DAILY Qty: 90 1RF Held aspirin [Adult Low Dose Aspirin] 81 mg tablet,delayed release (DR/EC) 81 mg PO DAILY Hold Instructions: Resume on 09/24/24. Patient Comments: Hold 7 days preop tramadol 50 mg tablet 50 mg PO TID Hold Instructions: Resume on 09/24/24. Discontinued chlorhexidine gluconate [Hibiclens] 4 % liquid 1 applic topical ONCE Qty: 237 0RF Rx Instructions: Cleanse operative extremity, in shower, every day for 1 week prior to surgical procedure.
== END 2024-08-28 17:10 | disposition home health service (06) ==
LOC: ANHSURGERY 05:52 → ANH3MEDSUR 12:01
PROVIDERS: PCP Family Medicine; Visit Provider Orthopaedic Surgery
PROC: (CPT 27447; principal; 2024-08-27 07:30)
DX: M17.12 Unilateral primary osteoarthritis, left knee (principal); M25.762 Osteophyte, left knee; I10 Essential (primary) hypertension; R73.03 Prediabetes; N39.41 Urge incontinence; E55.9 Vitamin D deficiency, unspecified; K21.9 Gastro-esophageal reflux disease without esophagitis; K58.1 Irritable bowel syndrome with constipation; M32.8 Other forms of systemic lupus erythematosus; M76.32 Iliotibial band syndrome, left leg; G89.29 Other chronic pain; M54.2 Cervicalgia; M54.9 Dorsalgia, unspecified; F12.90 Cannabis use, unspecified, uncomplicated; Z79.82 Long term (current) use of aspirin; Z79.620 Long term (current) use of immunosuppressive biologic; Z79.891 Long term (current) use of opiate analgesic; Z98.890 Other specified postprocedural states; Z90.49 Acquired absence of other specified parts of digestive tract; Z98.1 Arthrodesis status; Z96.82 Presence of neurostimulator; Z87.891 Personal history of nicotine dependence; Z86.0100 Personal history of colon polyps, unspecified; Z80.0 Family history of malignant neoplasm of digestive organs; Z80.1 Family history of malignant neoplasm of trachea, bronchus and lung; Z80.41 Family history of malignant neoplasm of ovary; Z82.49 Family history of ischemic heart disease and other diseases of the circulatory system
CPT/HCPCS: 27447; 36415; 73560; 80048; 85025; 97110; 97116; 97161; 97165; 97530; 97535; A9270; C1713; C1776; J0171; J0690; J1100; J1171; J1885; J1940; J2003; J2250; J2270; J2405; J2704; J2795; J3010; J3370; J7120

== ENCOUNTER 2024-10-24 12:16 | Outpatient (NON) | payer OTHER, SELFPAY ==
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
--- OUTSIDE RECORDS SUMMARY | 2024-10-24 13:35 | XMS_ITS ---
Author Organization [facility] Address [address] [place] [address] Care Team Providers Care Is Analyst Name Role Phone Heriberto Pruitt MD Primary Care Provider Marty Medina MD Unavailable [phone] Active Problems Problem Noted Date Diagnosed Date [...] Overview (09/27/2023): PHYSICAL THERAPY CONSULT ORDERED [facility]IA [facility]; REVIEWED X-RAY AND MRI WITH PT; F/U [...] -non-surgical patient at this time. staff: Scott rouse. Morbid obesity 09/27/2023 Night sweats 09/27/2023 Proteinuria [...] 09/23/2020 Assessment & Plan (06/29/2021 9:22 AM CONSTRUCTION PROJECT COORDINATOR): Patient has noticed an increase in migraine [...] dosing. Assessment & Plan (09/23/2020 9:19 AM CONSTRUCTION PROJECT COORDINATOR): Patient is a former patient of [facility] being treated for chronic mixed-type headaches. She has had a recent exacerbation associated with COVID infection. At baseline she has been using topiramate for migraine prophylaxis and sumatriptan for abortive breakthrough of migraine and then on occasion using supplemental anti-inflammatory for muscle contraction type headaches. Prior medical records from [facility] have been reviewed today during this visit in effort to facilitate transfer in care. Her neurologic examination today is presently normal. Patient is requesting maintenance of her present medications including topiramate for migraine prophylaxis and sumatriptan for abortive breakthrough. Both the sumatriptan and topiramate have been renewed as previously prescribed a [facility]. I will plan on seeing her back in 1 year on an as-needed basis as necessary sooner. 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 Overview (11/21/2018): Added automatically from request for surgery [id number] Current Treatment and Therapy Plans No current plan information found. Past Treatment and Therapy Plans No past plan information found. Lifetime Dose Tracking * Chemical Lifetime Dose Automatic Entry Manual Entr y Fluoro Time 0.418 minutes 0.418 minutes 0 minutes Air kerma at the reference point (Ka,r) 16.12 mGy 1 6.12 mGy 0 mGy
--- OUTSIDE RECORDS SUMMARY | 2024-10-24 13:35 | XMS_ITS | Referral Summary ---
Author Organization [facility] Address [address] [place] [address] Care Team Providers Care Retail Store Assistant Name Role Phone Heriberto Pruitt MD Primary Care Provider Marty Medina MD Unavailable [phone] Encounters Date Type Department Care Team Description 09/13/2024 9:03 AM PRESSURE TEST OPERATOR - 09/14/2024 12:50 PM PRESSURE TEST OPERATOR Hospital Encounter [address] [address] Marty Medina MD Pre-op testing; Chronic back pain, unspecified back location, unspecified back pain laterality; Chronic pain of lower extremity, unspecified laterality Discharge Disposition: Discharge to home or self care 09/13/2024 11:00 AM PRESSURE TEST OPERATOR - 09/13/2024 1:00 PM PRESSURE TEST OPERATOR Surgery [facility] Operating Room [address] [place] [id number] Marty Medina MD Removal of dorsal column stimulator, lead and Generator and insertion of dorsal column stimulator, lead and generator, [employer], [facility] 09/13/2024 12:08 PM PRESSURE TEST OPERATOR Anesthesia Event [facility] Operating Room [address] [place] [id number] Shalom Roy MD Strassner, Holly Michelle, NP 08/23/2024 2:30 PM PRESSURE TEST OPERATOR Pre-Admission Testing [facility] Pre Anesthesia Testing [address] [facility] [address] [place] [address] Kristen Rod NP 08/22/2024 Orders Only [facility] Pre Anesthesia Testing [address] [facility] [address], [address] [place] [address] Tessy Montgomery RN Pre-op testing (Primary Dx) from Last 3 Months Allergies No known active allergies Medications metoprolol [...] TOTAL) DIRECTED EVERY 30 DAYS 3 mL 5 Active Active Problems Problem Noted Date Diagnosed [...] Overview (09/27/2023): PHYSICAL THERAPY CONSULT ORDERED [facility]; REVIEWED X-RAY AND MRI WITH PT; F/U [...] 09/23/2020 Assessment & Plan (06/29/2021 9:22 AM PRESSURE TEST OPERATOR): Patient has noticed an increase in [...] dosing. Assessment & Plan (09/23/2020 9:19 AM PRESSURE TEST OPERATOR): Patient is a former patient of [facility] being treated for chronic mixed-type headaches. She has had a recent exacerbation associated with COVID infection. At baseline she has been using topiramate for migraine prophylaxis and sumatriptan for abortive breakthrough of migraine and then on occasion using supplemental anti-inflammatory for muscle contraction type headaches. Prior medical records from [facility] have been reviewed today during this visit in effort to facilitate transfer in care. Her neurologic examination today is presently normal. Patient is requesting maintenance of her present medications including topiramate for migraine prophylaxis and sumatriptan for abortive breakthrough. Both the sumatriptan and topiramate have been renewed as previously prescribed a [facility]. I will plan on seeing her back in 1 year on an as-needed basis as necessary sooner. 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 Overview (11/21/2018): Added automatically from request for surgery [id number] Immunizations Immunization Administration Dates Next Due Flucelvax Influenza Quad 06/09/2017 Influenza, Quadrivalent, Split, Intramuscular Influenza, Quadrivalent, Spl it, Preservative Free, Intramuscular 06/02/2020,06/13/2018 Pneumococcal Polysaccharide PPV23 06/02/2020 Social History Tobacco Use Types Packs/Day Years Used Date Smoking Tobacco: Former Cigarettes Q uit: 2016 Smokeless Tobacco: Never Tobacco Cessation:Counseling Given: Not Answered Alcohol Use Standard Drinks/Week Comments Not Currently 0 (1 standard drink = 0.6 oz pur e alcohol) [facility] Utilities Answer Date Recorded In the past 12 months has [employer], gas, oil, or water [employer] threatened to shut off services in your [...] often do you attend chur ch or alevism services? Never 09/11/2024 Do you belong to any clubs o r organizations such as caodaism groups, unions, fraternal or athletic groups, or [...] any time in the past 12 m [facility], were you homeless or living in a long term (including now)? No 09/11/2024 Personal Safety Answer Date Recorded Have you ever been in or are you currently in a harmful physical or emotional relationship or is someone making you feel afraid or unsafe? Denies 09/13/2024 Comments No Sex and Gender Information Value Date Recorded Sex Assigned at Not on file Legal Sex Female 1:00 AM PRESSURE TEST OPERATOR Gender Identity Female 08/28/2022 4:57 PM PRESSURE TEST OPERATOR Sexual Orientation Straight 08/28/2022 4: 57 PM PRESSURE TEST OPERATOR Last Filed Vital Signs Vital Sign Reading Time Taken Comments Blood Pressure 133/75 09/14/2024 8:16 AM PRESSURE TEST OPERATOR Pulse 93 09/14/2024 8:16 AM PRESSURE TEST OPERATOR Temperature 36.7 C (98 F) 09/14/2024 8:50 AM PRESSURE TEST OPERATOR Respiratory Rate 16 09/14/2024 8:50 AM PRESSURE TEST OPERATOR Oxygen Saturation 98% 09/14/2024 8:16 AM PRESSURE TEST OPERATOR Inhaled Oxygen Concentration - - Weight 83.5 kg (184 lb 1.4 oz) 09/13/2024 4:11 P M PRESSURE TEST OPERATOR Height 170.2 cm (5' 7 ) 09/13/2024 4:11 PM PRESSURE TEST OPERATOR Body Mass Index 28.83 09/13/2024 4:11 PM PRESSURE TEST OPERATOR Plan of Treatment Not on file Medical Devices Implanted Type Area Ladle Filler Device Identifier Shelf Expiration Date Model / Serial / Lot Biocomposites Stimulan Rapid Cure Kit Paste Director [employer] 5cc 12.5cc Bone Void 620-005 - [id number] Implanted:Qty: 1 on 09/13/2024 by Marty Medina MD at [facility] Left: Back [employer] 620-005 / / [employer] Cover Edge Mri Reconciliation Machine Operator Kit Implanted:Qty: 1 on 09/13/2024 by Marty Medina MD at [facility] Left: Back [employer] 08/08/2025 [id number] / / [employer] Neuro- Kit Generator Neurostimulator Pain Management Spine 32 Electrode Wavewriter Alpha [id number] Ut-1232 - [id number] - [id number] Implanted:Qty: 1 on 09/13/2024 by Marty Medina MD at [facility] Left: Back [employer] Neuro- [id number] 05/22/2026 [id number] / [id number] / [id number] [employer] Neuro- [place] Kit Nerve Stimulator Sterile Spinal Cord System [id number] - [id number] Implanted:Qty: 1 on 09/13/2024 by Marty Medina MD at [facility] Left: Back [employer] Neuro- [id number] 07/24/2026 [id number] / / Explanted Type Area Ladle Filler Device Identifier Shelf Expiration Date Model / Serial / Lot Generator Implantable Pulse Wavewriter g - [id number] - [id number] Implanted:Qty: 1 on 02/01/2019 by Dontrell Danielson MD at [facility] Explanted:Qty: 1 on 09/13/2024 by Marty Medina MD at [facility] Left: Back [employer] Zoe [id number] 12/04/2020 [id number] / [id number] / Procedures Procedure Name Priority Date/Time Associated Diagnosis Comments FL FLUOROSCOPY < 1 HOUR IP Routine 09/13/2024 1:38 PM PRESSURE TEST OPERATOR [place] AN ELECTIVE ENDOTRACHEAL AIRWAY Routine 09/13/2024 12:41 PM PRESSURE TEST OPERATOR INSERTION SPINAL CORD STIMULATOR 09/13/2024 12:08 PM PRESSURE TEST OPERATOR Chronic back pain, unspecified back location, unspecified back pain laterality Chronic pain of lower extremity, unspecified laterality Case Notes Removal of dorsal column stimulator, lead and Generator and insertion of dorsal column stimulator, lead and generator, [employer], [employer], COMMUNICATIONS TECH, C-ARM, Prone Position, Standard Bed, and Jamal Frame ECG 12-LEAD Routine 08/23/2024 3:00 PM PRESSURE TEST OPERATOR Chronic back pain, unspecified back location, unspecified back pain laterality Chronic pain of lower extremity, unspecified laterality from Last 3 Months Results * FL Fluoroscopy < 1 Hour (09/13/2024 1:38 PM PRESSURE TEST OPERATOR) Narrative [facility] - 09/13/2024 1:38 PM PRESSURE TEST OPERATOR The images from this study are not interpreted by Radiology. Please refer to the physician's procedure / OR operative note. us Marty Medina MD IMG FLUOROSCOPY PROCEDUR ES Final Result [facility] * [place] AN ELECTIVE ENDOTRACHEAL AIRWAY (09/13/2024 12:41 PM PRESSURE TEST OPERATOR) Narrative Shalom Roy MD - 09/13/2024 12:41 PM PRESSURE TEST OPERATOR Angela Figueredo CRNA 09/13/2024 12:41 PM Airway Patient location: OR Urgency: elective Indications for airway management: anesthesia Difficult airway: no Staff: Supervising provider: Shalom Roy MD Placed by: MOTOR PATROL OPERATOR: Angela Figueredo CRNA Emergent airway documentation: Risks [...] * ECG 12 lead (08/23/2024 3:00 PM PRESSURE TEST OPERATOR) 08/23/2024 3:00 PM PRESSURE TEST OPERATOR Narrative [facility] - 08/26/2024 9:30 PM PRESSURE TEST OPERATOR Vent Rate: 69 bpm RR Interval: 867 msec [place] Interval: 145 msec QRS Duration: 97 msec QT Interval: 403 msec QTC Interval: 422 msec P-R-T [place]: 33 - -1 - 18 degrees IMPRESSION: SINUS RHYTHM MINIMAL VOLTAGE CRITERIA FOR LVH NORMAL AXIS Electronically Signed By: Devin Graves MD, [facility] us Marty Medina MD ECG ORDERABLES Final Re sult [facility] from Last 3 Months Insurance [facility] Advance Directives For more information, please contact: [phone] * Full Code (Latest Code Status on File) Date Activated Date Inactivated Comments 09/13/2024 4:19 PM 09/14/2024 4:56 PM Care Teams Retail Store Assistant Relationship Specialty Start Date End Date Heriberto Pruitt MD PCP - General Family Practice 09/23/20 Marty Medina MD [address] [place] [address] Consulting Physician Neurosurgery 09/14/24
--- OUTSIDE RECORDS SUMMARY | 2024-10-24 13:35 | XMS_ITS | Clinical Summary ---
Author Organization [facility] Address [address] [place] [address] Care Team Providers Care Bottom Brusher Name Role Phone Heriberto Pruitt MD Primary Care Provider Allergies No known active allergies Medications methocarbamol (ROBAXIN-750) 750 MG Tab Take 1 tablet (750 mg total) by mouth 4 (four) times daily as needed. 40 tablet 2 Active albuterol sulfate HFA 108 (90 Base) MCG/ACT inhaler Inhale 2 puffs into the lungs every 6 (six) hours as needed for Wheezing or Shortness of breath. 18 g 3 Active methylPREDNISol elyssa MASOUD, (MEDROL DOSEPAK) 4 MG tablet 6 TABLETS ON DAY ONE, 5 TABLETS DAY TWO, 4 TABLETS DAY THREE, 3 TABLETS DAY FOUR, 2 TABLETS DAY FIVE, AND 1 TABLET DAY SIX 1 each 3 Active guaiFENesin-cod eine (GUAIFENESIN AC) 100-10 MG/5ML syrupIndication s:Cough Take 10 mLs by mouth nightly as needed for Cough. Indications: Cough 100 mL 3 Active benzonatate (TESSALON) 200 MG capsule Take 1 capsule (200 mg total) by mouth 3 (three) times daily as needed for Cough. 60 capsule 3 Active traMADol (ULTRAM) 50 MG tabletIndicatio ns:Acute Pain < 3 Day Supply Take 1 tablet (50 mg total) by mouth every 6 (six) hours as needed for Pain. Indications: Acute Pain < 3 Day Supply 10 tablet 3 Active Encounters Date Type Department Care Team Description 08/22/2024 10:28 AM MARBLE WORKER - 08/22/2024 2:09 PM MARBLE WORKER Emergency [facility] [place] [address] Mika [place] PA Chest Pain Discharge Disposition: Home or Self Care (Routine Discharge) 08/22/2024 Travel from Last 3 Months Immunizations Name Administration Dates Next Due PFIZER COVID-19 (BABB CAP), MRNA, LNP-S, PF, 30 MCG/0.3 ML ANDREI-SUCROSE, IM 10/01/2021 PFIZER COVID-19 (ORIGINAL FO RMULATION, PURPLE CAP) mRNA, LNP-S, PF, 30 MCG/0.3 ML DOSE 12/22/2020,11/30/2020 Social History Tobacco Use Types Packs/Day Years Used Date Smoking Tobacco: Never Smokeless Tobacco: Never Tobacco Cessation:Counseling Given: Not Answered Alcohol Use Standard Drinks/Week Comments Not Currently 0 (1 standard drink = 0.6 oz pur e alcohol) Comments No Sex and Gender Information Value Date Recorded Sex Assigned at Not on file Legal Sex Female 12:19 PM CDT Gender Identity Not on file Sexual Orientation Not on file Last Filed Vital Signs Vital Sign Reading Time Taken Comments Blood Pressure 131/86 08/22/2024 2:00 PM MARBLE WORKER Pulse 72 08/22/2024 2:00 PM MARBLE WORKER Temperature 36.4 C (97.5 F) 08/22/2024 9:39 AM MARBLE WORKER Respiratory Rate 19 08/22/2024 2:00 PM MARBLE WORKER Oxygen Saturation 97% 08/22/2024 2:00 PM MARBLE WORKER Inhaled Oxygen Concentration - - Weight 81.6 kg (180 lb) 08/22/2024 9:39 AM MARBLE WORKER Height 170.2 cm (5' 7 ) 08/22/2024 9:39 AM MARBLE WORKER Body Mass Index 28.19 08/22/2024 9:39 AM MARBLE WORKER Plan of Treatment Health Maintenance Due Date Last Done Comments Colorectal Cancer Screening Colonoscopy (10 Years) 1972 Annual Physical 1975 Hepatitis C 1990 DTaP, Tdap and Td Vaccines (1 - Tdap) 1991 Hepatitis B Vaccines (1 of 3 - 19+ 3-dose series) 1991 Mammogram Screening 2012 Zoster Vaccines (2 of 2) 02/13/2023 12/19/2022 COVID-19 Vaccine ( season) 2024 10/01/2021, 12/22/2020, 11/30/2020 Influenza Adult (#1) 2024 06/20/2022, 06/02/2020, 06/10/2019, Additional history exists Pneumococcal Vaccine: Pediatrics (0 to 5 Years) and At-Risk Patients (6 to 64 Years) Aged Out 06/02/2020 No longer eligible based on patient's age to complete this topic Meningococcal B Vaccine Aged Out No l onger eligible based on patient's age to complete this topic Meningococcal Vaccine Aged Out No marcos julian eligible based on patient's age to complete this topic RSV Immunizations Under 20 Months Aged Out No longer eligible based on patient's age to complete this topic Procedures Procedure Name Priority Date/Time Associated Diagnosis Comments CTA CHEST+CT ABD+PEL W CON STAT 08/22/2024 1:01 PM MARBLE WORKER LIPASE Routine 08/22/2024 12:05 PM MARBLE WORKER TROPONIN, QUANT STAT 08/22/2024 12:05 PM MARBLE WORKER ECG 12-LEAD STAT 08/22/2024 12:03 PM MARBLE WORKER XR CHEST PORTABLE STAT 08/22/2024 10: 09 AM MARBLE WORKER ECG 12-LEAD STAT 08/22/2024 9:44 AM MARBLE WORKER TROPONIN, QUANT STAT 08/22/2024 9:44 AM MARBLE WORKER COMPREHENSIVE METABOLIC PANEL STAT 08/22/2024 9:44 AM MARBLE WORKER CBC W/DIFF AUTOMATED STAT 08/22/2024 9:44 AM MARBLE WORKER from Last 3 Months Results * CTA CHEST+CT ABD+PEL W CON (08/22/2024 1:01 PM MARBLE WORKER) Anatomical Region Laterality Modality Abdomen, Chest Computed Tomogra phy 08/22/2024 1:22 PM MARBLE WORKER Impressions 08/22/2024 1:32 PM MARBLE WORKER IMPRESSION: 1. No evidence of pulmonary embolism. 2. No acute findings of the chest, abdomen, or pelvis. 3. Chronic findings as above. Referred By: Interpreted By: Angela Zabala DO, 08/22/2024 1:22 PM Narrative 08/22/2024 1:32 PM MARBLE WORKER [address] [address] EXAMINATION: CTA CHEST+CT ABD+PEL W CON INDICATION: pleuritic chest pain, epigastric pain TECHNIQUE #1: Contiguous CT images of the chest with contrast were obtained utilizing an institutional pulmonary angiogram technique. Coronal and sagittal reformatted images along with an multiplanar MIPS were obtained from the source data. A dose lowering technique was utilized for this procedure which may include but is not limited to dose reduction techniques, automated exposure control, and/or the use of iterative reconstruction in accordance with ALARA principle. TECHNIQUE #2: CT acquisition of the abdomen and pelvis. Coronal and sagittal reformatted images provided. A dose lowering technique was utilized for this procedure which may include but is not limited to dose reduction techniques, automated exposure control, and/or the use of iterative reconstruction in accordance with ALARA principle. IV Contrast: 100 mL Isovue 370 Oral contrast: None. COMPARISON: CT abdomen/pelvis without 02/17/2023, CT chest with 04/14/2022. FINDINGS: CHEST: Pulmonary arteries: Diagnostic quality: Contrast bolus is adequate for assessment of the subsegmental pulmonary arteries. Filling defects: No filling defects are identified. Main Pulmonary Artery: The main pulmonary artery measures 26 mm, normal. Right Heart Strain: There is no evidence of right heart strain. Lower Neck: Visualized thyroid is normal. No pathologically enlarged supraclavicular lymph nodes are identified. Mediastinum: No pathologically enlarged mediastinal lymph nodes are identified. The thoracic aorta is normal in caliber and appearance. The esophagus is normal in caliber and appearance. Heart: The heart size is normal. No pericardial thickening or effusion is identified. Mild coronary artery calcifications are present. Lungs: No pulmonary consolidation is identified. The airways are normal in caliber and appearance. Pleural Space: No pleural effusion or pneumothorax is identified. ABDOMEN/PELVIS: Liver: Normal. Gallbladder/biliary: Postcholecystectomy. Mild intrahepatic biliary ductal dilatation, unchanged. Pancreas: Normal. Spleen: Normal. Adrenal glands: Normal. Kidneys and ureters: Normal. Bladder: Normal. Reproductive organs: Post hysterectomy. Stomach/bowel: Nonobstructive appearance. Scattered diverticuli. Appendix: Normal. Lymph nodes: No lymphadenopathy. Peritoneum: No intraperitoneal free air. No intraperitoneal free fluid. Vessels: Normal. MUSCULOSKELETAL: Abdominal wall: No hernia or soft tissue mass. Small fat-containing left inguinal hernia. Postsurgical scarring Bones: No acute osseous abnormality. Anterior right third and fourth chronic rib fractures, unchanged from 2021. Intervertebral disc spacer at L5-S1. 5 mm retrolisthesis of L2 on L3. Soft tissues: Spinal stimulators within the posterior spinal canal at the level of T7-8 and T9-10. Procedure Note Angela Zabala DO - 08/22/[address] [address] EXAMINATION: CTA CHEST+CT ABD+PEL W CON INDICATION: pleuritic chest pain, epigastric pain TECHNIQUE #1: Contiguous CT images of the chest with contrast wereobtained utilizing an institutional pulmonary angiogram technique. Coronaland sagittal reformatted images along with an multiplanar MIPS wereobtained from the source data. A dose lowering technique was utilized forthis procedure which may include but is not limited to dose reductiontechniques, automated exposure control, and/or the use of iterativereconstruction in accordance with ALARA principle. TECHNIQUE #2: CT acquisition of the abdomen and pelvis. Coronal andsagittal reformatted images provided. A dose lowering technique wasutilized for this procedure which may include but is not limited to dosereduction techniques, automated exposure control, and/or the use ofiterative reconstruction in accordance with ALARA principle. IV Contrast: 100 mL Isovue 370 Oral contrast: None. COMPARISON: CT abdomen/pelvis without 02/17/2023, CT chest with04/14/2022. FINDINGS: CHEST: Pulmonary arteries: Diagnostic quality: Contrast bolus is adequate for assessment of thesubsegmental pulmonary arteries. Filling defects: No filling defects are identified. Main Pulmonary Artery: The main pulmonary artery measures 26 mm, normal. Right Heart Strain: There is no evidence of right heart strain. Lower Neck: Visualized thyroid is normal. No pathologically enlargedsupraclavicular lymph nodes are identified. Mediastinum: No pathologically enlarged mediastinal lymph nodes areidentified. The thoracic aorta is normal in caliber and appearance. Theesophagus is normal in caliber and appearance. Heart: The heart size is normal. No pericardial thickening or effusion isidentified. Mild coronary artery calcifications are present. Lungs: No pulmonary consolidation is identified. The airways are normal incaliber and appearance. Pleural Space: No pleural effusion or pneumothorax is identified. ABDOMEN/PELVIS: Liver: Normal. Gallbladder/biliary: Postcholecystectomy. Mild intrahepatic biliary ductaldilatation, unchanged. Pancreas: Normal. Spleen: Normal. Adrenal glands: Normal. Kidneys and ureters: Normal. Bladder: Normal. Reproductive organs: Post hysterectomy. Stomach/bowel: Nonobstructive appearance. Scattered diverticuli. Appendix: Normal. Lymph nodes: No lymphadenopathy. Peritoneum: No intraperitoneal free air. No intraperitoneal free fluid. Vessels: Normal. MUSCULOSKELETAL: Abdominal wall: No hernia or soft tissue mass. Small fat-containing leftinguinal hernia. Postsurgical scarring Bones: No acute osseous abnormality. Anterior right third and fourthchronic rib fractures, unchanged from 202. Intervertebral disc spacer atL5-S1. 5 mm retrolisthesis of L2 on L3. Soft tissues: Spinal stimulators within the posterior spinal canal at thelevel of T7-8 and T9-10. IMPRESSION: 1. No evidence of pulmonary embolism. 2. No acute findings of the chest, abdomen, or pelvis. 3. Chronic findings as above. Referred By: Interpreted By: Angela Zabala DO, 08/22/2024 1:[address] Final Resul t * TROPONIN, QUANT (08/22/2024 12:05 PM MARBLE WORKER) Only the most recent of2 resultswithin the time period is included. TROPONIN I HIGH SENSITIVITY 3 <54 ng/L 08/22/2024 12:[address] [facility] Comment: HIGH DOSES OF BIOTIN, TROPONIN-SPECIFIC AUTOANTIBODIES, AND ANTIBODY THERAPY CONTAINING HAMA MAY INTERFERE WITH THIS TEST RESULT. CORRELATION TO CLINICAL HISTORY AND PRESENTATION RECOMMENDED. 08/22/2024 12:0 5 PM MARBLE WORKER [facility] Final Resul t Performing Organization Address [facility] Co de Phone Number [facility] [address] [place] [address], [place] [phone] * LIPASE (08/22/2024 12:05 PM MARBLE WORKER) Pathologist [facility] LIPASE 36 13 - 75 UNITS/L 08/22/2024 1:[address] [facility] 08/22/2024 12:0 5 PM MARBLE WORKER [facility] Final Resul t Performing Organization Address [facility] Co de Phone Number [facility] [address] [place] [address], [place] [phone] * ECG 12 lead (08/22/2024 12:03 PM MARBLE WORKER) Only the most recent of2 resultswithin the time period is included. 08/22/2024 12:0 3 PM MARBLE WORKER Narrative [facility] RAD - 08/22/2024 6:44 PM MARBLE WORKER [address] Test Date: 2024-08-22 Pat Name: LEONID LEYVATZ Department: 41 Room: 3 Gender: Female Fiber Analyst: [id number] : 1970 Requested By: FIORELLA LINDA Order Number: [id number] Reading MD: Arsh Montgomery Measurements Intervals [place] Rate: 73 P: 40 WY: 143 QRS: 6 QRSD: 98 T: 31 QT: 418 QTc: 462 Interpretive Statements SINUS RHYTHM Compared to ECG 08/22/2024 09:44:25 No significant changes LE WORKER Procedure Note Arsh Montgomery MD - 08/22/[address] Test Date: 2024-08-22 Pat Name: LEONID SUTHERLAND Department: 41 Room: 3 Gender: Female Fiber Analyst: [id number] : 1970 Requested By: FIORELLA LINDA Order Number: [id number] Reading MD: Arsh Montgomery Measurements Intervals [place] Rate: 73 P: 40 [place]: 143 QRS: 6 QRSD: 98 T: 31 QT: 418 QTc: 462 Interpretive Statements SINUS RHYTHM Compared to ECG 08/22/2024 09:44:25 No significant changes LE WORKER us [facility] ECG ORDERABLES Final Resul t [facility] ([facility]) RAD * XR CHEST PORTABLE (08/22/2024 10:09 AM MARBLE WORKER) Anatomical Region Laterality Modality Chest Radiographic Kaley ging 08/22/2024 10:1 0 AM MARBLE WORKER Impressions 08/22/2024 10:11 AM MARBLE WORKER IMPRESSION: No acute cardiopulmonary findings. Referred By: Interpreted By: Cristhian Wisdom MD, 08/22/2024 10:10 AM Narrative 08/22/2024 10:11 AM MARBLE WORKER [address], [place] [address] XR CHEST PORTABLE INDICATION: Chest pain TECHNIQUE: Portable AP view of the chest. COMPARISON: Chest radiograph 12/25/2022. FINDINGS: The cardiomediastinal silhouette is within normal limits. There is no pulmonary consolidation. No pleural effusions or pneumothorax. No acute osseous abnormality. Spinal stimulator device projects over the mid thoracic spine. Procedure Note Cristhian Wisdom MD - 08/22/2024 [facility] [address] [place], [place] [address] XR CHEST PORTABLE INDICATION: Chest pain TECHNIQUE: Portable AP view of the chest. COMPARISON: Chest radiograph 12/25/2022. FINDINGS: The cardiomediastinal silhouette is within normal limits. There is nopulmonary consolidation. No pleural effusions or pneumothorax. No acuteosseous abnormality. Spinal stimulator device projects over the midthoracic spine. IMPRESSION: No acute cardiopulmonary findings. Referred By: Interpreted By: Cristhian Wisdom MD, 08/22/2024 10:10 AM us [facility] Final Resul t * (ABNORMAL) COMPREHENSIVE METABOLIC PANEL (08/22/2024 9:44 AM MARBLE WORKER) GLUCOSE 134(H) 70 - 99 MG/DL 08/22/2024 10:[address] [facility] BUN 15 7 - 18 MG/DL 08/22/2024 10:[address] [facility] CREATININE S/P/B 0.81 0.55 - 1.02 MG/DL 08/22/2024 10:[address] [facility] SODIUM S/P/B 135(L) 136 - 145 MMOL/L 08/22/2024 10:[address] [facility] POTASSIUM S/P/B 3.4(L) 3.5 - 5.1 MMOL/L 08/22/2024 10:[address] [facility] CHLORIDE S/P/B 101 97 - 115 MMOL/L 08/22/2024 10:[address] [facility] CO2 30.0 21 - 32 MMOL/L 08/22/2024 10:[address] [facility] CALCIUM S/P/B 9.6 8.5 - 10.1 MG/DL 08/22/2024 10:[address] [facility] BILIRUBIN TOTAL S/P/B 0.8 0.2 - 1.2 MG/DL 08/22/2024 10:[address] [facility] Comment: THIS ASSAY IS NOT RECOMMENDED FOR PATIENTS UNDERGOING TREATMENT WITH ELTROMBOPAG DUE TO THE POTENTIAL FOR FALSELY ELEVATED RESULTS. TOTAL PROTEIN S/P/B 7.4 6.4 - 8.2 G/DL 08/22/2024 10:[address] [facility] ALBUMIN S/P/B 4.0 3.4 - 5.0 G/DL 08/22/2024 10:[address] [facility] AST 30 15 - 37 U/L 08/22/2024 10:[address] [facility] ALT 61(H) 14 - 55 U/L 08/22/2024 10:[address] [facility] ALKALINE PHOSPHATASE S/P/B 75 50 - 136 U/L 08/22/2024 10:[address] [facility] ANION GAP 4.0 2 - 10 MMOL/L 08/22/2024 10:[address] [facility] BUN CREATININE RATIO 18.5 6 - 26 08/22/2024 10:[address] [facility] A/G RATIO 1.2 1.0 - 2.0 RATIO 08/22/2024 10:[address] [facility] GFR ESTIMATE 87(L) >90 ML/MIN/1.7 3 M2 08/22/2024 10:[address] [facility] Comment: NOTE: eGFR is not calculated for patients <18 years of age or gender unknown. This is an estimated GFR calculation using the new CKD EPI creatinine equation without race and so does not require a correction factor for race. This estimated GFR should not be used for calculating drug doses. 08/22/2024 9:44 AM MARBLE WORKER us [facility] Final Resul t [facility] [address] [place] [address], * (ABNORMAL) CBC W/DIFF AUTOMATED (08/22/2024 9:44 AM MARBLE WORKER) WBC 6.56 4.5 - 11.0 x10'3/uL 08/22/2024 9:[address] [facility] RBC 4.47 4.20 - 5.40 x10'6/uL 08/22/2024 9:[address] [facility] HGB 14.1 12.0 - 16.0 G/DL 08/22/2024 9:[address] [facility] HCT 44.1 38.0 - 48.0 % 08/22/2024 9:[address] [facility] MCV 98.7 81.0 - 99.0 FL 08/22/2024 9:[address] [facility] MCH 31.5(H) 27.0 - 31.0 PG 08/22/2024 9:[address] [facility] MCHC 32.0 32.0 - 36.0 G/DL 08/22/2024 9:[address] [facility] RDW 12.6 11.5 - 14.5 % 08/22/2024 9:[address] [facility] PLT 369 130 - 400 x10'3/uL 08/22/2024 9:[address] [facility] MPV 9.4 9.3 - 12.2 FL 08/22/2024 9:[address] [facility] DIFFERENTIAL TYPE AUTOMATED DIFFERENTIAL 08/22/2024 9:[address] [facility] NEUTROPHILS % 63.3 % 08/22/2024 9:[address] [facility] LYMPHOCYTES % 26.2 % 08/22/2024 9:[address] [facility] MONOCYTES % 8.1 % 08/22/2024 9:[address] [facility] EOSINOPHILS 1.5 % 08/22/2024 9:[address] [facility] BASOPHILS 0.6 % 08/22/2024 9:[address] [facility] IMMATURE GRANS % 0.3 % 08/22/19 9:[address] [facility] ABS. NEUTROPHILS 4.15 1.80 - 7.70 x10'3/uL 08/22/2024 9:[address] [facility] ABS. LYMPHOCYTES 1.72 1.00 - 4.80 x10'3/uL 08/22/2024 9:[address] [facility] ABS. MONOCYTES 0.53 0.24 - 0.86 x10'3/uL 08/22/2024 9:[address] [facility] ABS. EOSINOPHILS 0.10 0.04 - 0.36 x10'3/uL 08/22/2024 9:[address] [facility] ABS. BASOPHILS 0.04 0.01 - 0.08 x10'3/uL 08/22/2024 9:[address] [facility] ABS. IMMATURE GRANULOCYTES 0.02 0.00 - 0.49 x10'3/uL 08/22/2024 9:57 AM MARBLE WORKER [facility] 08/22/2024 9:44 AM MARBLE WORKER us [facility] Final Resul t [facility] [address] [place] [address], from Last 3 Months Insurance Care Teams Bottom Brusher Relationship Specialty Start Date End Date Heriberto Pruitt MD PCP - General FAMILY PRACTICE 05/07/20
--- OUTSIDE RECORDS SUMMARY | 2024-10-24 13:35 | XMS_ITS | Clinical Summary ---
Author Organization [facility] Address [address] [place] [address] Care Team Providers Care Tool Repair Technician Name Role Phone Unavailable Primary Care Provider Unavailabl e Allergies No known active allergies Social History Tobacco Use Types Packs/Day Years Used Date Smoking Tobacco: Never Assessed Comments Unknown Sex and Gender Information Value Date Recorded Sex Assigned at Not on file Legal Sex Female 2:51 AM WEIGHER AND CHARGER Gender Identity Not on file Sexual Orientation Not on file Plan of Treatment Health Maintenance Due Date Last Done Comments Hepatitis C Virus (HCV) Screening 1970 TdaP Immunization 1972 Hepatitis B Immunization (1 of 3 - 19+ 3-dose series) 1991 Pap Smear 1993 Cervical Cancer Screening (CCS) 2002 HPV/Cotest 2002 Colonoscopy 2017 Colorectal Cancer Screening 2017 Cologuard 2022 Immunochemical Fecal Occult Blood 2022 Mammogram 2022 Pneumococcal Immunization (5 0+ years) (1 of 1 - PCV) 2022 Zoster Immunization (1 of 2) 2022 Influenza Immunization (#1) 04/21/202405/22, 06/13/2018, 06/09/2017 SARS-COV-2 Immunization ( season) 2024 Respiratory Syncytial Virus (RSV) Immunization (Adult) (1 - 1-dose 75+ series) 2047 Meningococcal Immunization (ACWY) Aged Out No longer eligible b ased on patient's age to complete this topic Pneumococcal Immunization Combined Aged Out No longer eligible b ased on patient's age to complete this topic Rotavirus Immunization Aged Out No lo nger eligible based on patient's age to complete this topic
== END 2024-10-24 12:17 | disposition home or self-care (01) ==
LOC: ANHGOSHLAB 12:17
PROVIDERS: PCP Family Medicine; Visit Provider Family Medicine
DX: R35.0 Frequency of micturition (principal); N39.0 Urinary tract infection, site not specified
CPT/HCPCS: 87077; 87086; 87186

== ENCOUNTER 2025-01-06 14:31 | Outpatient (CLI) | payer OTHER, SELFPAY ==
--- NOTE | ~2025-01-06 | MM_ITS ---
EXAMINATION: MM screening kash BI w tripp HISTORY: Screening TECHNIQUE: Craniocaudal and mediolateral oblique 3-D tomosynthesis images were obtained and synthetic 2-D images were generated. CAD analysis was submitted and interpreted. COMPARISON: Comparison to multiple prior studies sequentially, with oldest reviewed study dated 06/22. BREAST PARENCHYMAL COMPOSITION: There are scattered areas of fibroglandular density. FINDINGS: Stable benign-appearing bilateral breast calcifications. There is no evidence of suspicious mass, calcification, or architectural distortion to suggest malignancy in either breast. There has b een no suspicious interval change. IMPRESSION: 1. No mammographic evidence of malignancy. 2. Recommend routine screening mammography in one year. BI-RADS Category 1: Negative Reviewed, dictated and finalized at location B.
--- OUTSIDE RECORDS SUMMARY | 2025-01-06 14:35 | XMS_ITS | Clinical Summary ---
Author Organization [facility] Address [address] [place] [address] Care Team Providers Care Epoxy Coatings Installer Name Role Phone Heriberto Pruitt MD Primary Care Provider Marty Medina MD Unavailable [phone] Allergies No known active allergies Medications metoprolol [...] Take 1 capsule by mouth daily Active hydroCHLOROthia zide (HYDRODIURIL) 25 mg tablet Take 1 tablet [...] tablet 4 Active SUMAtriptan (IMITREX) 100 mg tabletIndicatio ns:Migraine Take 1 tablet (100 mg total) by mouth once as needed for migraine (headache) May repeat one time after 2 hours if needed. 9 tablet 5 4 Active Additional Information Patient not taking.Reported on 11/19/2024 sulfaSALAzine EN (AZULFIDINE EN) 500 mg EC [...] 12.5 mg/mL solution as directed Intravenous Active HYDROcodone-alethea taminophen (NORCO) 5-325 mg per tabletIndicatio ns:Pain Take 1-2 tablets by mouth every 4 (four) hours as needed for pain 30 tablet 5 Active Additional Information Patient not taking.Reported on 11/19/2024 methocarbamoL (ROBAXIN) 750 mg tablet Take 1 tablet (750 mg total) by mouth 4 (four) times a day 30 tablet 1 5 Active ubrogepant (UBRELVY) 100 mg tablet Take 1 tablet (100 mg total) by mouth once as needed for migraine May repeat dose once in 2 hours if no relief. Do not exceed 2 doses in 24 hours. 10 tablet 5 5 11/20/19 26 Active galcanezumab-gn lm 120 mg/mL pen injector Inject 120 mg under the skin every 30 (thirty) days 1 mL 5 5 Active galcanezumab-gn lm 120 mg/mL pen injector Inject 240 mg under the skin every 30 (thirty) days 2 mL 5 12/29/19 25 Active Problems Problem Noted Date Diagnosed Date [...] Overview (09/27/2023): PHYSICAL THERAPY CONSULT ORDERED VIA [facility]; REVIEWED X-RAY AND MRI WITH PT; [...] 09/23/2020 Assessment & Plan (06/29/2021 9:22 AM SPRINKLER REPAIR TECHNICIAN): Patient has noticed an increase in migraine [...] dosing. Assessment & Plan (09/23/2020 9:19 AM SPRINKLER REPAIR TECHNICIAN): Patient is a former patient of [facility] being treated for chronic mixed-type headaches. She has had a recent exacerbation associated with COVID infection. At baseline she has been using topiramate for migraine prophylaxis and sumatriptan for abortive breakthrough of migraine and then on occasion using supplemental anti-inflammatory for muscle contraction type headaches. Prior medical records from [facility] have been reviewed today during this visit in effort to facilitate transfer in care. Her neurologic examination today is presently normal. Patient is requesting maintenance of her present medications including topiramate for migraine prophylaxis and sumatriptan for abortive breakthrough. Both the sumatriptan and topiramate have been renewed as previously prescribed a [facility]. I will plan on seeing her back in 1 year on an as-needed basis as necessary sooner. 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 Overview (11/21/2018): Added automatically from request for surgery [id number] Encounters Date Type Department Care Team Description 01/05/2025 1:56 PM CDT - 01/05/2025 11:59 PM CDT Hospital Encounter [address] [id number] Intractable migraine without aura and without status migrainosus; Memory disturbance Discharge Disposition: Discharge to home or self care 12/11/2024 10:00 AM CDT Clinical Support [facility] Neuro Psychology [address] [place] [phone] Tiff Daniels, PhD Memory disturbance 11/27/2024 Telephone [facility] Neurology [address] [place] [address] Melissa Maldonado NP Prior Auth (Ubrelvy 100mg) 11/19/2024 2:30 PM CDT Office Visit [facility] Neurology [address] [place] [address] Melissa Maldonado NP Intractable migraine without aura and without status migrainosus (Primary Dx); Memory disturbance; Paresthesia of skin from Last 3 Months Immunizations Immunization Administration [...] Cigarettes Q uit: 2016 Smokeless Tobacco: Never Alcohol Use Standard Drinks/Week Comments Not Currently 0 (1 standard drink = 0.6 oz pur e alcohol) [facility] Utilities Answer Date Recorded In the past 12 months has [employer], gas, oil, or water company threatened to shut off services in your [...] often do you attend chur ch or church services? Never 09/11/2024 Do you belong to any clubs o r organizations such as methodist groups, unions, fraternal or athletic groups, or [...] any time in the past 12 m [facility], were you homeless or living in a custodial (including now)? No 09/11/2024 Personal Safety Answer Date Recorded Have you ever been in or are you currently in a harmful physical or emotional relationship or is someone making you feel afraid or unsafe? Denies 09/13/2024 Comments No Sex and Gender Information Value Date Recorded Sex Assigned at Not on file Legal Sex Female 1:00 AM SPRINKLER REPAIR TECHNICIAN Gender Identity Female 08/28/2022 4:57 PM SPRINKLER REPAIR TECHNICIAN Sexual Orientation Straight 08/28/2022 4: 57 PM SPRINKLER REPAIR TECHNICIAN Obstetrics History Last Filed Vital Signs Vital Sign Reading Time Taken Comments Blood Pressure 120/70 11/19/2024 2:15 PM CDT Pulse 70 11/19/2024 2:15 PM CDT Temperature 36.7 C (98 F) 09/14/2024 8:50 AM SPRINKLER REPAIR TECHNICIAN Respiratory Rate 20 11/19/2024 2:15 PM CDT Oxygen Saturation 94% 11/19/2024 2:15 PM CDT Inhaled Oxygen Concentration - - Weight 81.6 kg (180 lb) 11/19/2024 2:15 PM CDT Height 170.2 cm (5' 7 ) 11/19/2024 2:15 PM CDT Body Mass Index 28.19 11/19/2024 2:15 PM CDT Plan of Treatment Health Maintenance Due Date Last Done Comments Breast Cancer Screening-Mammogram 1972 Colon Cancer Screening-Colonoscopy 1972 Depression Screening 1972 Hepatitis C Screening 1972 Hepatitis B Screening 1990 Regular Well Visit/Exam 18-64 1990 Zoster Vaccine (1 of 2) 1991 Pneumococcal vaccine <65 (2 of 2 - PCV) 06/02/2021 06/02/2020 Covid-19 Vaccine (4 - 2023-2 5 season) 2024 10/01/2021, 12/22/2020, 11/30/2020 Influenza Vaccine (Season Ended) 2025 07/06/2021, 06/02/2020, 06/10/2019, Additional history exists DTaP/Tdap/Td Vaccine (2 - Td or Tdap) 07/06/2031 07/06/2021 Medical Devices Implanted Type Area Manager Respiratory Care Device Identifier Shelf Expiration Date Model / Serial / Lot Biocomposites Stimulan Rapid Cure Kit Paste [place] Operator 5cc 12.5cc Bone Void 620-005 - [id number] Implanted:Qty: 1 on 09/13/2024 by Marty Medina MD at [facility] Left: Back Biocomposites 620-005 / / [place] [employer] Cover Edge Mri Computer Technologist Kit Implanted:Qty: 1 on 09/13/2024 by Marty Medina MD at [facility] Left: Back [place] [employer] 08/08/2025 [id number]-8436-7 0 / / [place] [employer] Neuro- Kit Generator Neurostimulator Pain Management Spine 32 Electrode Wavewriter Alpha [id number] [id number]-1232 - [id number] - [id number] Implanted:Qty: 1 on 09/13/2024 by Marty Medina MD at [facility] Left: Back [place] [employer] Neuro- [id number] 05/22/2026 TN-1232 / [id number] / [id number] [place] [employer] Neuro- Clik [place] Kit Nerve Stimulator Sterile Spinal Cord System [id number] - [id number] Implanted:Qty: 1 on 09/13/2024 by Marty Medina MD at [facility] Left: Back [place] [employer] Neuro- [id number] 07/24/2026 [id number] / / Explanted Type Area Manager Respiratory Care Device Identifier Shelf Expiration Date Model / Serial / Lot Generator Implantable Pulse Wavewriter g - [id number] - [id number] Implanted:Qty: 1 on 02/01/2019 by Dontrell Danielson MD at [facility] Explanted:Qty: 1 on 09/13/2024 by Marty Medina MD at [facility] Left: Back [employer] Zoe [id number] 12/04/2020 [id number] / [id number] / Procedures Procedure Name Priority Date/Time Associated Diagnosis Comments MRI BRAIN WO CONTRAST Schedule Routine, Read Routine (OP Routine) 01/05/2025 2:36 PM CDT Intractable migraine without aura and without status migrainosus Memory disturbance from Last 3 Months Results * MRI Brain WO Contrast (01/05/2025 2:36 PM CDT) Anatomical Region Laterality Modality Head and Neck N/A Magnetic Resonan ce 01/06/2025 12:0 5 PM CDT Narrative 01/06/2025 12:09 PM CDT EXAM DESCRIPTION: MRI BRAIN WO CONTRAST REASON FOR STUDY: Chronic nontraumatic migraine headaches for 2 years. No provided focal neurologic deficits. No provided history of inciting and/or aggravating events. No provided past medical or surgical history. TECHNIQUE: Multiplanar imaging includes non-contrasted T1, T2, FLAIR, and diffusion with ADC map sequences. Additional sequence(s) sensitive to blood products. Images stored on PACS. COMPARISON: CT head without contrast 03/21/2023; CT head/cervical spine without contrast 05/14/2019 (reports without images). FINDINGS: CEREBRUM: No acute intra-axial hemorrhage. No edema, mass effect, midline shift, or herniation. WHITE MATTER: There is mild scattered periventricular-subcortical T2/FLAIR hyperintense white matter disease, nonspecific, though can be seen secondary to chronic microvascular ischemia. POSTERIOR FOSSA: Brainstem and cerebellum are unremarkable. DIFFUSION IMAGING: No restricted diffusion to suggest acute/subacute ischemia or infarct. EXTRAAXIAL SPACES: No extra-axial fluid collection. No extra-axial mass. BRAIN VOLUME: Mild cerebral volume loss. PITUITARY: Unremarkable. VASCULATURE: No flow disturbance evident, noting dominant left and diminutive right V4 segments of the vertebral arteries. CALVARIUM: Unremarkable. ORBITS: No acute abnormality. Ocular lenses and globes normal in conformation and position. PARANASAL SINUSES AND MASTOIDS: Well-aerated with no fluid levels. No mucosa thickening. OTHER: No other significant finding. IMPRESSION: No acute intracranial process with chronic findings as above. THIS IS AN ELECTRONICALLY VERIFIED FINAL REPORT 01/06/2025 12:09 PM - Electronically signed by Adan Martinez M.D. YOEL: YOEL Report ID: [id number] Reading Location: [id number] Procedure Note Adan Martinez MD - 01/06/2025 EXAM DESCRIPTION: MRI BRAIN WO CONTRAST REASON FOR STUDY: Chronic nontraumatic migraine headaches for 2 years. No provided focal neurologic deficits. No provided history of inciting and/or aggravating events. No provided past medical or surgical history. TECHNIQUE: Multiplanar imaging includes non-contrasted T1, T2, FLAIR, and diffusion with ADC map sequences. Additional sequence(s) sensitive [employer] products. Images stored on PACS. COMPARISON: CT head without contrast 03/21/2023; CT head/cervical spine without contrast 05/14/2019 (reports without images). FINDINGS: CEREBRUM: No acute intra-axial hemorrhage. No edema, masseffect, midline shift, or herniation. WHITE MATTER: There is mild scattered periventricular-subcortical T2/FLAIR hyperintense white matter disease, nonspecific, though can beseen secondary to chronic microvascular ischemia. POSTERIOR FOSSA: Brainstem and cerebellum are unremarkable. DIFFUSION IMAGING: No restricted diffusion to suggest acute/subacute ischemia or infarct. EXTRAAXIAL SPACES: No extra-axial fluid collection. No extra-axialmass. BRAIN VOLUME: Mild cerebral volume loss. PITUITARY: Unremarkable. VASCULATURE: No flow disturbance evident, noting dominant left and diminutive right V4 segments of the vertebral arteries. CALVARIUM: Unremarkable. ORBITS: No acute abnormality. Ocular lenses and globes normal in conformation and position. PARANASAL SINUSES AND MASTOIDS: Well-aerated with no fluid levels. Nomucosa thickening. OTHER: No other significant finding. IMPRESSION: No acute intracranial process with chronic findings asabove. THIS IS AN ELECTRONICALLY VERIFIED FINAL REPORT 01/06/2025 12:09 PM - Electronically signed by Adan Martinez M.D. YOEL: YOEL Report ID: [id number] Reading Location: [id number] Melissa Maldonado NP IMG MRI PROCEDURES Final Res ult from Last [address] [place] [address] [place] [address] [facility] Advance Directives For more information, please contact: [phone] * Full Code (Latest Code Status on File) Date Activated Date Inactivated Comments 09/13/2024 4:19 PM 09/14/2024 4:56 PM Care Teams Epoxy Coatings Installer Relationship Specialty Start Date End Date Heriberto Pruitt MD PCP - General Family Practice 09/23/20 Marty Medina MD [address] [place] [address] Consulting Physician Neurosurgery 09/14/24
--- OUTSIDE RECORDS SUMMARY | 2025-01-06 14:35 | XMS_ITS | Referral Summary ---
Author Organization [facility] Address [address] [place] [address] Care Team Providers Care Sales And Marketing Vice President Name Role Phone Heriberto Pruitt MD Primary Care Provider Marty Medina MD Unavailable [phone] Encounters Date Type Department Care Team Description 01/05/2025 1:56 PM CDT - 01/05/2025 11:59 PM CDT Hospital Encounter [address] [address] Intractable migraine without aura and without status migrainosus; Memory disturbance Discharge Disposition: Discharge to home or self care 12/11/2024 10:00 AM CDT Clinical Support [facility] Neuro Psychology [address] [place] [phone] Tiff Daniels, PhD Memory disturbance 11/27/2024 Telephone [facility] Neurology [address] [place] [phone] Melissa Maldonado NP Prior Auth (Ubrelvy 100mg) 11/19/2024 2:30 PM CDT Office Visit [facility] Neurology [address] [place] [phone] Melissa Maldonado NP Intractable migraine without aura and without status migrainosus (Primary Dx); Memory disturbance; Paresthesia of skin from Last 3 Months Allergies No known [...] 09/23/2020 Assessment & Plan (06/29/2021 9:22 AM SHOE FOLDER): Patient has noticed an increase in migraine [...] dosing. Assessment & Plan (09/23/2020 9:19 AM SHOE FOLDER): Patient is a former patient of [facility] being treated for chronic mixed-type headaches. She has had a recent exacerbation associated with COVID infection. At baseline she has been using topiramate for migraine prophylaxis and sumatriptan for abortive breakthrough of migraine and then on occasion using supplemental anti-inflammatory for muscle contraction type headaches. Prior medical records from [facility] have been reviewed today during this visit in effort to facilitate transfer in care. Her neurologic examination today is presently normal. Patient is requesting maintenance of her present medications including topiramate for migraine prophylaxis and sumatriptan for abortive breakthrough. Both the sumatriptan and topiramate have been renewed as previously prescribed a [facility]. I will plan on seeing her back in 1 year on an as-needed basis as necessary sooner. 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 Overview (11/21/2018): Added automatically from request for surgery [id number] Immunizations Immunization Administration Dates Next Due Flucelvax Influenza Quad 06/09/2017 Influenza, Quadrivalent, Split, Intramuscular Influenza, Quadrivalent, Spl it, Preservative Free, Intramuscular 06/02/2020,06/13/2018 Pneumococcal Polysaccharide PPV23 06/02/2020 Social History Tobacco Use Types Packs/Day Years Used Date Smoking Tobacco: Former Cigarettes Q uit: 2016 Smokeless Tobacco: Never Alcohol Use Standard Drinks/Week Comments Not Currently 0 (1 standard drink = 0.6 oz pur e alcohol) [facility] Utilities Answer Date Recorded In the past 12 months has [employer], gas, oil, or water [employer] threatened to shut off services in your [...] often do you attend chur ch or christian services? Never 09/11/2024 Do you belong to any clubs o r organizations such as adventist groups, unions, fraternal or athletic groups, or [...] any time in the past 12 m [facility], were you homeless or living in a skilled nursing (including now)? No 09/11/2024 Personal Safety Answer Date Recorded Have you ever been in or are you currently in a harmful physical or emotional relationship or is someone making you feel afraid or unsafe? Denies 09/13/2024 Comments No Sex and Gender Information Value Date Recorded Sex Assigned at Not on file Legal Sex Female 1:00 AM SHOE FOLDER Gender Identity Female 08/28/2022 4:57 PM SHOE FOLDER Sexual Orientation Straight 08/28/2022 4: 57 PM SHOE FOLDER Last Filed Vital Signs Vital Sign Reading Time Taken Comments Blood Pressure 120/70 11/19/2024 2:15 PM CDT Pulse 70 11/19/2024 2:15 PM CDT Temperature 36.7 C (98 F) 09/14/2024 8:50 AM SHOE FOLDER Respiratory Rate 20 11/19/2024 2:15 PM CDT Oxygen Saturation 94% 11/19/2024 2:15 PM CDT Inhaled Oxygen Concentration - - Weight 81.6 kg (180 lb) 11/19/2024 2:15 PM CDT Height 170.2 cm (5' 7 ) 11/19/2024 2:15 PM CDT Body Mass Index 28.19 11/19/2024 2:15 PM CDT Plan of Treatment Not on file Medical Devices Implanted Type Area Underground Bolting Machine Operator Device Identifier Shelf Expiration Date Model / Serial / Lot Biocomposites Stimulan Rapid Cure Kit Paste Inspector Repairer [place] 5cc 12.5cc Bone Void 620-005 - [id number] Implanted:Qty: 1 on 09/13/2024 by Marty Medina MD at [facility] Left: Back [employer] 620-005 / / [employer] Cover Edge Mri Bull Driver Kit Implanted:Qty: 1 on 09/13/2024 by Marty Medina MD at [facility] Left: Back [place] [employer] 08/08/2025 MS-8436-7 0 / / [place] [employer] Neuro- Kit Generator Neurostimulator Pain Management Spine 32 Electrode Wavewriter Alpha M3650 [id number] - [id number] - [id number] Implanted:Qty: 1 on 09/13/2024 by Marty Medina MD at [facility] Left: Back [place] [employer] Neuro- [id number] 05/22/2026 [id number] / [id number] / [id number] [place] [employer] Neuro- Clik [place] Kit Nerve Stimulator Sterile Spinal Cord System [id number] - [id number] Implanted:Qty: 1 on 09/13/2024 by Marty Medina MD at [facility] Left: Back [place] [employer] Neuro- [id number] 07/24/2026 [id number] / / Explanted Type Area Underground Bolting Machine Operator Device Identifier Shelf Expiration Date Model / Serial / Lot Generator Implantable Pulse Wavewriter Ipg - [id number] - [id number] Implanted:Qty: 1 on 02/01/2019 by Dontrell Danielson MD at [facility] Explanted:Qty: 1 on 09/13/2024 by Marty Medina MD at [facility] Left: Back [employer] [id number] 12/04/2020 [id number] / [id number] / Procedures Procedure Name Priority Date/Time Associated [...] - Electronically signed by Adan Martinez M.D. RENE: RENE Report ID: [id number] Reading Location: [id number] Procedure Note Adan Martinez MD - 01/06/2025 EXAM DESCRIPTION: MRI BRAIN WO CONTRAST REASON FOR STUDY: Chronic nontraumatic migraine headaches for 2 years. No provided focal neurologic deficits. No provided history of inciting and/or aggravating events. No provided past medical or surgical history. TECHNIQUE: Multiplanar imaging includes non-contrasted T1, T2, FLAIR, and diffusion with ADC map sequences. Additional sequence(s) sensitive [employer]. Images stored on PACS. COMPARISON: CT head [...] - Electronically signed by Adan Martinez M.D. RENE: RENE Report ID: [id number] Reading Location: [id number] Melissa Shaekoreyrenefreedom NANCY IMG MRI PROCEDURES Final Res ult from Last 3 Months Insurance [facility] Advance Directives For more information, please contact: [phone] * Full Code (Latest Code Status on File) Date Activated Date Inactivated Comments 09/13/2024 4:19 PM 09/14/2024 4:56 PM Care Teams Sales And Marketing Vice President Relationship Specialty Start Date End Date Heriberto Pruitt MD PCP - General Family Practice 09/23/20 Marty Medina MD [address] [facility] [address] [place] [address] Consulting Physician Neurosurgery 09/14/24
--- OUTSIDE RECORDS SUMMARY | 2025-01-06 14:36 | XMS_ITS | Clinical Summary ---
Author Organization [facility] Address [address] [place] [address] Care Team Providers Care [facility] Director Name Role Phone Heriberto Pruitt MD Primary [...] Encounters Date Type Department Care Team Description 11/20/2024 9:25 AM CDT - 11/20/2024 11:59 PM CDT Hospital Encounter [facility] [place] [address] Shruti Sanches MD Discharge Disposition: Home or Self Care (Routine Discharge) 11/20/2024 Travel from Last 3 Months Immunizations Immunization Administration Dates Next Due PFIZER COVID-19 (BABB [...] Information Value Date Recorded Sex Assigned at Female 11/20/2024 9:23 AM CDT Legal Sex Female 12:19 PM CDT Gender Identity Not on file Sexual Orientation Not on file Last Filed Vital Signs Vital Sign Reading Time Taken Comments Blood Pressure 131/86 08/22/2024 2:00 PM [facility] Pulse 72 08/22/2024 2:00 PM [facility] Temperature 36.4 C (97.5 F) 08/22/2024 9:39 AM [facility] Respiratory Rate 19 08/22/2024 2:00 PM [facility] Oxygen Saturation 97% 08/22/2024 2:00 PM [facility] Inhaled Oxygen Concentration - - Weight 81.6 kg (180 lb) 08/22/2024 9:39 AM [facility] Height 170.2 cm (5' 7 ) 08/22/2024 9:39 AM [facility] Body Mass Index 28.19 08/22/2024 9:39 AM [facility] Plan of Treatment Health Maintenance Due Date Last Done Comments Colorectal Cancer Screening Colonoscopy (10 Years) 1972 Annual Physical 1975 Hepatitis C 1990 DTaP, Tdap and Td Vaccines ( 1 - Tdap) 1991 Hepatitis B Vaccines (1 of 3 - 19+ 3-dose series) 1991 Mammogram Screening 2012 Pneumococcal Vaccine: 50+ Years (2 of 2 - PCV) 2022 06/02/2020 Zoster Vaccines (2 of 2) 02/13/2023 12/19/2022 COVID-19 Vaccine (4 - 2023-2 5 season) 2024 10/01/2021, 12/22/2020, 11/30/2020 Meningococcal B Vaccine Aged Out No l onger eligible based on patient's age to complete this topic Meningococcal Vaccine Aged Out No marcos julian eligible based on patient's age to complete this topic RSV Immunizations Under 20 Months Aged Out No longer eligible b ased on patient's age to complete this topic Procedures Procedure Name Priority Date/Time Associated Diagnosis Comments US RETROPERITONEAL COMP Routine 11/21/19 9:56 AM CDT Chronic infective cystitis with hematuria from Last 3 Months Results * US RETROPERITONEAL COMP (11/20/2024 9:56 AM CDT) Anatomical Region Laterality Modality Abdomen Ultrasound 11/20/2024 3:11 PM CDT Impressions 11/20/2024 3:21 PM CDT IMPRESSION: 1. No hydronephrosis. Bilateral ureteral jets in the urinary bladder. 2. 6.6 mm left renal cyst. No follow-up is required per consensus guidelines. 3. Moderately distended urinary bladder but decreased distention compared to 08/22/2024 CT. Anechoic bladder fluid. Ordered By: SHRUTI SANCHES Interpreted By: Cecil Hernandez, 11/20/2024 3:11 PM Narrative 11/20/2024 3:21 PM CDT [facility] [address] [place], [place] [address] IMAGING STUDIES: US RETROPERITONEAL COMP DATE: 11/20/2024 9:29 AM HISTORY: CHRONIC INFECTIVE CYSTITIS WITH HEMATURIA 54-year-old female. Urinary bladder pain and spasms for 3 months. Chronic infective cystitis with hematuria. No prior history of kidney or bladder surgery. COMPARISON: CTA chest and CT abdomen pelvis with contrast 08/22/2024. CT abdomen pelvis without contrast 02/17/2023. DISCUSSION: Right kidney 10.7 x 5.6 x 5.1 cm. No hydronephrosis. No shadowing calcification. No appreciable renal lesion. Left kidney 12 x 5.2 x 4.9 cm. No hydronephrosis. No shadowing calcification. In the mid to upper pole is a 6.6 x 4.1 x 6 mm cyst corresponding to 8 x 6.5 mm cyst on 08/22/2024 CT axial image 51 and coronal image 50. Normal color Doppler signal within both kidneys. Moderate urinary bladder distention with length approximately 10 cm (on 08/22/2024 CT, bladder was 13.4 x 9.4 x 10.7 cm). Anechoic bladder fluid. No focal wall thickening or bladder calcification. On color Doppler imaging of the urinary bladder, bilateral ureteral jets visualized consistent with patent ureters. Procedure Note Cecil Hernandez MD - 11/20/[address] [address] IMAGING STUDIES: US RETROPERITONEAL COMPDATE: 11/20/2024 9:29 AM HISTORY: CHRONIC INFECTIVE CYSTITIS WITH HEMATURIA 54-year-old female.Urinary bladder pain and spasms for 3 months. Chronic infective cystitiswith hematuria. No prior history of kidney or bladder surgery. COMPARISON: CTA chest and CT abdomen pelvis with contrast 08/22/2024. CTabdomen pelvis without contrast 02/17/2023. DISCUSSION: Right kidney 10.7 x 5.6 x 5.1 cm. No hydronephrosis. No shadowingcalcification. No appreciable renal lesion. Left kidney 12 x 5.2 x 4.9 cm. No hydronephrosis. No shadowingcalcification. In the mid to upper pole is a 6.6 x 4.1 x 6 mm cystcorresponding to 8 x 6.5 mm cyst on 08/22/2024 CT axial image 51 and coronalimage 50. Normal color Doppler signal within both kidneys. Moderate urinary bladder distention with length approximately 10 cm (on08/22/2024 CT, bladder was 13.4 x 9.4 x 10.7 cm). Anechoic bladder fluid. Nofocal wall thickening or bladder calcification. On color Doppler imagingof the urinary bladder, bilateral ureteral jets visualized consistent withpatent ureters. IMPRESSION: 1. No hydronephrosis. Bilateral ureteral jets in the urinary bladder. 2. 6.6 mm left renal cyst. No follow-up is required per consensusguidelines. 3. Moderately distended urinary bladder but decreased distention comparedto 08/22/2024 CT. Anechoic bladder fluid. Ordered By: SHRUTI SANCHES Interpreted By: Cecil Hernandez, 11/20/2024 3:11 PM us Shruti Sanches MD ULTRASOUND Final Result from Last 3 Months Insurance Care Teams Children[facility] Director Relationship Specialty Start Date End Date Heriberto Pruitt MD PCP - General FAMILY PRACTICE 05/07/20
--- OUTSIDE RECORDS SUMMARY | 2025-01-06 14:36 | XMS_ITS ---
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 Assessment & Plan (09/23/2020 9:19 AM FABRIC CUTTER): Patient is a former patient of [facility] being treated for chronic mixed-type headaches. She has had a recent exacerbation associated with COVID infection. At baseline she has been using topiramate for migraine prophylaxis and sumatriptan for abortive breakthrough of migraine and then on occasion using supplemental anti-inflammatory for muscle contraction type headaches. Prior medical records from [facility] have been reviewed today during this visit in effort to facilitate transfer in care. Her neurologic examination today is presently normal. Patient is requesting maintenance of her present medications including topiramate for migraine prophylaxis and sumatriptan for abortive breakthrough. Both the sumatriptan and topiramate have been renewed as previously prescribed a [facility]. I will plan on seeing her back in 1 year on an as-needed basis as necessary sooner. 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 Overview (11/21/2018): Added automatically from request for surgery [id number] Current Treatment and Therapy Plans No current plan information found. Past Treatment and Therapy Plans No past plan information found. Lifetime Dose Tracking * Chemical Lifetime Dose Automatic Entry Manual Entr y Fluoro Time 0.418 minutes 0.418 minutes 0 minutes Air kerma at the reference point (Ka,r) 16.12 mGy 1 6.12 mGy 0 mGy
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
--- OUTSIDE RECORDS SUMMARY | 2025-01-06 14:36 | XMS_ITS | Encounter Summary ---
Author Organization [facility] Healthcare Address [address] [place] [address] Care Team Providers Care Track Equipment Operator Name Role Phone Heriberto Pruitt MD Primary Care Provider Marty Medina MD Unavailable [phone] Reason for Referral * MRI/CAT/PET Scan (Routine) - Closed Specialty Diagnoses / Procedures Referred By Abiel mueller Referred To Contact Radiology Diagnoses Intractable migraine without aura and without status migrainosus Memory disturbance Procedures MRI Brain WO Contrast Melissa Maldonado NP [address] [facility] [address] [address] [place] [address] Phone: tel: fax: [address] [address] Referral ID Status Reason Start Date Expiration Date Visits Re quested Visits Authorized [id number] Closed 12/21/2024 03/21/2025 1 1 Reason for Visit * MRI/CAT/PET Scan (Routine) - Closed Specialty Diagnoses / Procedures Referred By Abiel mueller Referred To Contact Radiology Diagnoses Intractable migraine without aura and without status migrainosus Memory disturbance Procedures MRI Brain WO Contrast Melissa Maldonado NP [address] [place] [address] Phone: tel: fax: [facility] [address] [place] [address] Referral ID Status Reason Start Date Expiration Date Visits Re quested Visits Authorized [id number] Closed 12/21/2024 03/21/2025 1 1 Encounter Details Date Type Department Care Team (Latest Contact Info) Description 01/05/2025 1:56 PM CDT - 01/05/2025 11:59 PM CDT Hospital Encounter [id number] [place] [address] Intractable migraine without aura and without status migrainosus; Memory disturbance Discharge Disposition: Discharge to home or self care Social History Tobacco Use Types Packs/Day Years Used Date Smoking Tobacco: Former Cigarettes Q uit: 2016 Smokeless Tobacco: Never Alcohol Use Standard Drinks/Week Comments Not Currently 0 (1 standard drink = 0.6 oz pur e alcohol) [facility] Utilities Answer Date Recorded In the past 12 months has e electric, gas, oil, or water company threatened to [...] often do you attend chur ch or rastafarian services? Never 09/11/2024 Do you belong to any clubs o r organizations such as yarsani groups, unions, fraternal or athletic groups, or [...] any time in the past 12 m [facility], were you homeless or living in a halfway (including now)? No 09/11/2024 Personal Safety Answer Date Recorded Have you ever been in or are you currently in a harmful physical or emotional relationship or is someone making you feel afraid or unsafe? Denies 09/13/2024 Comments No Sex and Gender Information Value Date Recorded Sex Assigned at Not on file Legal Sex Female 1:00 AM AVID EDITOR Gender Identity Female 08/28/2022 4:57 PM AVID EDITOR Sexual Orientation Straight 08/28/2022 4: 57 PM AVID EDITOR documented as of this encounter Medications at Time of Discharge albuterol HFA (PROVENTIL HFA,VENTOLIN HFA,PROAIR HFA) 90 mcg/actuation inhaler amLODIPine (NORVASC) 10 mg tablet Take 1 tablet (10 mg total) by mouth daily 06/23/2020 azaTHIOprine (IMURAN) 50 mg tablet 3 tablets (150 mg total) daily 06/10/[address] (CYMBALTA) 60 mg capsule Take 1 capsule (60 mg total) by mouth 2 (two) times a day estradioL (ESTRACE) 0.01 % (0.1 mg/gram) vaginal cream USE 1 GRAM 3 TIMES WEEKLY 06/21/2020 galcanezumab-gnlm 120 mg/mL pen injector Inject 120 mg under the skin every 30 (thirty) days 1 mL 5 12/28/2024 golimumab (Simponi ARIA) 12.5 mg/mL solution as directed Intravenous hydroCHLOROthiazi de (HYDRODIURIL) 25 mg tablet Take 1 tablet (25 mg total) by mouth daily HYDROcodone-aceta minophen (NORCO) 5-325 mg per tabletIndications :Pain Take 1-2 tablets by mouth every 4 (four) hours as needed for pain 30 tablet 09/14/2024 hydrOXYzine (ATARAX) 25 mg tablet 1 tablet (25 mg total) every 6 (six) hours as needed 05/30/2024 Lactobacillus acidophilus (PROBIOTIC ORAL) Take 1 capsule by mouth daily lamoTRIgine (LaMICtal) 200 mg tablet 02/24/2023 Linzess 290 mcg capsule 05/28/2020 methocarbamoL (ROBAXIN) 750 mg tablet Take 1 tablet (750 mg total) by mouth 4 (four) times a day 30 tablet 1 09/14/2024 metoprolol XL (TOPROL-XL) 100 mg 24 hr tablet Take 1 tablet (100 mg total) by mouth daily 2 12/05/2018 omeprazole (PriLOSEC) 40 mg capsule Take 1 capsule (40 mg total) by mouth daily predniSONE (DELTASONE) 5 mg tablet 08/23/2023 Premarin 0.9 mg tablet Take 1 tablet (0.9 mg total) by mouth daily 09/20/2021 progesterone (PROMETRIUM) 100 mg capsule Take 1 capsule (100 mg total) by mouth 05/23/2024 sulfaSALAzine EN (AZULFIDINE EN) 500 mg EC tablet Take 1 tablet (500 mg total) by mouth 4 (four) times a day SUMAtriptan (IMITREX) 100 mg tabletIndications :Migraine Take 1 tablet (100 mg total) by mouth once as needed for migraine (headache) May repeat one time after 2 hours if needed. 9 tablet 5 09/28/2023 traZODone (DESYREL) 50 mg tablet 01/25/2023 ubrogepant (UBRELVY) 100 mg tablet Take 1 tablet (100 mg total) by mouth once as needed for migraine May repeat dose once in 2 hours if no relief. Do not exceed 2 doses in 24 hours. 10 tablet 5 11/19/2024 6 UribeL 118-10-40.8-36 mg capsule TAKE ONE CAPSULE BY MOUTH FOUR TIMES DAILY NEEDED FOR DYSURIA / SUPRAPUBIC PAIN 02/24/2023 valACYclovir (VALTREX) 500 mg tablet Take 1 tablet (500 mg total) by mouth daily 07/03/2020 Vraylar 3 mg capsule capsule Obtain advice for OTCs.May cause drowsiness/dizzin ess.May impair driving.Check with your doctor before becoming . 02/09/2024 5 documented as of this encounter Discharge Disposition Disposition Code Departure Means Destination Discharge to home or self care documented in this encounter Plan of Treatment Not on file documented as of this encounter Procedures Procedure Name Priority Date/Time Associated Diagnosis Comments MRI BRAIN WO CONTRAST Schedule Routine, Read Routine (OP Routine) 01/05/2025 2:36 PM CDT Intractable migraine without aura and without status migrainosus Memory disturbance documented in this encounter Results * MRI Brain WO Contrast (01/05/2025 [...] Adan Martinez M.D. YOEL: YOEL Report ID: [id number] Reading Location: [id number] Procedure Note Adan Martinez MD - 01/06/2025 EXAM DESCRIPTION: MRI BRAIN WO CONTRAST REASON FOR STUDY: Chronic nontraumatic migraine headaches for 2 years. No provided focal neurologic deficits. No provided history of inciting and/or aggravating events. No provided past medical or surgical history. TECHNIQUE: Multiplanar imaging includes non-contrasted T1, T2, FLAIR, and diffusion with ADC map sequences. Additional sequence(s) sensitive HumanCloud. Images stored on PACS. COMPARISON: CT head [...] Adan Martinez M.D. YOEL: YOEL Report ID: [id number] Reading Location: [place] [address] Melissa Maldonado MARINE FIREFIGHTER IMG MRI PROCEDURES Final Res ult documented in this encounter Visit Diagnoses Diagnosis Intractable migraine without aura and without status migrainosus Memory disturbance Memory loss documented in this encounter Care Teams Track Equipment Operator Relationship Specialty Start Date End Date Heriberto Pruitt MD PCP - General Family Practice 09/23/20 Marty Medina MD [address] [facility] [address] [address] Consulting Physician Neurosurgery 09/14/24 documented as of this encounter
== END 2025-01-06 14:32 | disposition home or self-care (01) ==
LOC: ANHIMG 14:33
PROVIDERS: PCP Family Medicine; Visit Provider Family Medicine
DX: Z12.31 Encounter for screening mammogram for malignant neoplasm of breast (principal)
CPT/HCPCS: 77063; 77067

== ENCOUNTER 2025-03-20 01:16 | Day surgery (SDC) | payer OTHER, SELFPAY ==
[2025-03-12 13:08] VITALS: BMI 28.2
--- NOTE | 2025-03-12 13:09 | PC.NURSE ---
Report to the Outpatient Waiting Room, entrance under the green pavilion located off [facility], at time _0600_ on date _[id number]_. Planned Procedure Time: _0730_.? Time changes happen often and if your time is changed the preop area will call you the afternoon before. - You and your visitor will be asked to self-screen and do not enter if you have any COVID symptoms. Please call surgeon if you need to reschedule. - A mask is optional within the hospital at this time. Patients may have clear liquids (water, carbonated beverages, clear teas, apple juice) until 3 hours prior to surgery with a maximum of 20 ounces. - No food from midnight until time of surgery and no smoking, or chewing tobacco (or any form of nicotine). No chewing gum, candy or mints. Take only the following medications with a SIP of water on the morning of surgery: __Lamotrigine, Duloxetine, Metroprolol, and if needed Hydroxyzine and/or Tramadol DO NOT STOP ANY OF YOUR OTHER PRESCRIPTION MEDICATIONS PRIOR TO SURGERY EXCEPT THE FOLLOWING Hold all vitamins and supplements for 3 days per anesthesiologist. Medications to discontinue per physician __By Dr's instructions patient has stopped Azathioprine, Diclofenac and Sulfazalazine Date to take last ukql___[id number]____ Please no make-up, nail lithuanian, hairspray, perfume, deodorant, or body powder the day of surgery.? No jewelry (including any body piercings) or valuables the day of surgery, leave them at home.? Please take a shower or bath the night before, or the morning of, surgery with an antibacterial soap.? Wear comfortable, loose fitting clothing. - Jewelry must be removed prior to entering the operating room.? Rings and piercings that are not removed may be cut off. - The hospital will not accept responsibility for valuables.? - Please leave all valuables, including medications, at home the day of surgery. If you are going home after surgery, a licensed regional owner operator truck driver must drive you home.? - NO public transportation without another adult if you receive anesthesia. - We recommend that an adult stay with you for 24 hours following discharge. - We also recommend that you do not drive, make important decision, drink alcoholic beverages, or take any drugs that were not prescribed by your health care provider for at least 24 hours after your discharge time. Follow any additional instructions given to you from your surgeon. Telephone instructions given to __Hui___and asked if any additional questions and then verbalized understanding. Patient advised to call surgeon office or pre surgery nurse liaison [phone] if any additional questions.
[2025-03-20] VITALS (8 sets, daily range): BP systolic 114–130; BP diastolic 73–87; PULSE 87–98; RESP 13–16; TEMP 37.1–37.7; O2SAT 93–100
--- NOTE | ~2025-03-20 | XR_ITS ---
EXAMINATION: XR surgery orthopedic DATE: 03/20/2025 10:08 INDICATION: Left fourth metatarsal nonunion. TECHNIQUE: Real dorsal plantar image of the left mid and forefoot was obtained during procedure perfo rmed by Dr. Atkinson. Radiologist was not present for the imaging or procedure. The amount of fluoroscop y time used during this procedure was 0.5 minutes. Total DAP was 3.966 cGycm^2. COMPARISON: None. FINDINGS: Images demonstrate a plate and screw fixation extending between the proximal metaphyseal regions of t he fourth and fifth metatarsals. Linear lucency with relatively smooth margins projecting across the base of the fourth metatarsal which may represent changes of osteotomy at the site of a reported nonu nion. No acute fractures identified. IMPRESSION: 1. Fluoroscopy utilized during orthopedic procedure at the left foot with suggestion of an osteotomy at the base of the fourth metatarsal with plate and screw fixation extending between the proximal asp ect of the fourth and fifth metatarsals. See procedure note for further detail. Reviewed, dictated and finalized at location A. IMPRESSION: 1. Fluoroscopy utilized during orthopedic procedure at the left foot with sugge stion of an osteotomy at the base of the fourth metatarsal with plate and screw fixation extending between the proximal aspect of the fourth and fifth metatar sals. See procedure note for further detail.
--- OUTSIDE RECORDS SUMMARY | 2025-03-20 01:20 | XMS_ITS | Clinical Summary ---
Author Organization [facility] Address [address] [place] [address] Phone Care Team Providers Care Qc Chemist Name Role Phone Unavailable Primary Care Provider Unavailabl e Social History Tobacco Use Types Packs/Day Years Used Date Smoking Tobacco: Never Assessed Comments Unknown Sex and Gender Information Value Date Recorded Sex Assigned at Not on file Legal Sex Female 12:44 PM CDT Gender Identity Not on file Sexual Orientation Not on file Plan of Treatment Health Maintenance Due Date Last Done Comments DTAP/TDAP/TD VACCINES (1 - Tdap) 1991 HEPATITIS B VACCINES (1 of 3 - 19+ 3-dose series) 07/22 HPV/Cotest (21-29) 1993 CERVICAL CANCER SCREENING 2002 HPV/Cotest (30-65) 2002 PAP SMEAR 2002 BREAST CANCER SCREENING 2012 COLORECTAL SCREENING 2017 Colorectal Cancer Screening 2017 FIT-DNA Q 3 years 2017 FIT/FOBT Q 1 year 2017 Flex Sig/CT Colonography Q 5 years 2017 ZOSTER VACCINE (1 of 2) 2022 INFLUENZA VACCINE (#1) 2025
--- OUTSIDE RECORDS SUMMARY | 2025-03-20 01:20 | XMS_ITS | Clinical Summary ---
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 Gender Identity Not on file Sexual Orientation Not on file Plan of Treatment Health Maintenance Due Date Last Done Comments Hepatitis C Virus (HCV) Screening 1972 TdaP Immunization 1972 Hepatitis B Immunization (1 of 3 - 19+ 3-dose series) 1991 Pap Smear 1993 Cervical Cancer Screening (CCS) 2002 HPV/Cotest 2002 Cologuard 2017 Colonoscopy 2017 Colorectal Cancer Screening 2017 Immunochemical Fecal Occult Blood 2017 Pneumococcal Immunization (5 0+ years) (1 of 1 - PCV) 2022 Zoster Immunization (1 of 2) 2022 SARS-COV-2 Immunization ( - 2023- season) 2024 Influenza Immunization (#1) 2025 10/2 08/2018, 06/13/2018, 06/09/2017 Respiratory Syncytial Virus (RSV) Immunization (Adult) (1 - 1-dose 75+ series) 2047 Human Papillomavirus (HPV) Immunization Aged Out No longer eligible b ased on patient's age to complete this topic Meningococcal Immunization (ACWY) Aged Out No longer eligible b ased on patient's age to complete this topic Rotavirus Immunization Aged Out No lo nger eligible based on patient's age to complete this topic
--- OUTSIDE RECORDS SUMMARY | 2025-03-20 01:20 | XMS_ITS | Patient Health Record ---
Author Organization [facility] As [facility] Address [address] [facility] [address] [place] [address] Care Team Providers Care Hatch Tender Name Role Phone Edmond JORDAN, Heriberto Primary Care Provider Unavailable Tiff Hammer Unavailable [phone] Esvin Jo Unavailable [phone] Isidra Hwang Unavailable [phone] Allergies No Known Allergies Reason For Referral [...] AUTOINJECTOR 140 MG/ML SUBCUTANEOUS AUTO-INJECTOR *Reorder from [employer] for eRx and Interaction Alerts* 01/04/2024 Active Vitamin D3 Ultra Strength 125 MCG (5000 UT) Oral 01/04/2024 Not-Taking Aspirin Adult Low Strength 81 MG Oral 01/04/2024 Active Uribel 118 MG Oral 01/04/2024 Not-T aking Omeprazole 40 MG Oral 01/04/2024 Ac tive valACYclovir HCl 500 MG Oral 01/04/2024 Active Gabapentin 400 MG Oral 01/04/2024 A ctive Linzess 145 MCG Oral 01/04/2024 Act dagmar Premarin 0.9 MG Oral 01/04/2024 Act dagmar Diclofenac Sodium 75 MG Oral 01/04/2024 Active DULoxetine HCl 30 MG 1 capsule Orally Once a day; Duration: 90 days total dose 90 mg 09/30/2024 Active DULoxetine HCl 60 MG 1 capsule Oral Once a day; Duration: 90 days total dose 90 mg Active lamoTRIgine 200 MG 1/2 a tablet in the morning and 1 tablet at bedtime Oral; Duration: 90 days Active hydrOXYzine HCl 25 MG take 1/2 to 1 tab Orally twice a day; Duration: 30 days As needed for anxiety/insomnia please dc any rx available from Isidra kelly previous provider. thanks Active Vraylar 3 MG 1 capsule Oral Once a day; Duration: 90 days Active Social History Tobacco Use: [...] illicit or recreational drugs have you used?: [facility] Have you used IV drugs?: No What [...] illicit or recreational drugs have you [facility]?: [facility] Have you used IV drugs?: No What [...] illicit or recreational drugs have you used?: [facility] Have you used IV drugs?: No What [...] Status Risk Notes Problem Generalized anxiety disorder (88351499) Generalized anxiety disorder (F41.1) 01/04/20 Active confirmed Problem Primary insomnia (6979984) Primary insomnia (F51.01) 01/04/20 24 Active confirmed Problem Attention deficit hyperactivity disorder, predominantly inattentive type (disorder) (97145881) Attention and concentration deficit (R41.840) Active confirmed Problem Panic attack (008362230) Panic attack (F41.0) Active confirmed Problem Depressed bipolar I disorder (13343780) Bipolar disorder, most recent episode depressed (F31.30) Active confirmed Problem Benign essential hypertension (6397553) Benign essential hypertension (I10) Active confirmed Vital Signs Heart Rate 73 /min 09/30/2024 Height-cm 167.64 cm 09/30/2024 Blood pressure diastolic 81 mm Hg 09/30/2024 Weight-kg 85.73 kg 09/30/2024 Height 66.00 in 09/30/2024 Blood pressure systolic 145 mm Hg 09/30/2024 Weight 189 lbs 09/30/2024 BMI 30.5 kg/m2 09/30/2024 Encounters Encounter Location Date Provider Diagnosis [facility] [address] [place] [address] 04/26/2024 Esvin Jo Generalized anxiety disorder F41.1 ; Recurrent major depressive episodes, mild F33.0 and Complex posttraumatic stress disorder F43.10 [facility] [address] [place] [address] 05/13/2024 Isidra Hwang Bipolar disorder, current episode depressed, mild or moderate severity, unspecified F31.30 ; Generalized anxiety disorder F41.1 ; Panic attack F41.0 and Primary insomnia F51.01 [facility] [address] [place] [address] 06/27/2024 Esvinervin Jo Generalized anxiety disorder F41.1 ; Depression, major, recurrent, mild F33.0 and Complex posttraumatic stress disorder F43.10 [facility] [address] [place] [address] 07/22/2024 Esvin Jo Generalized anxiety disorder F41.1 ; Depression, major, recurrent, mild F33.0 and Post traumatic stress disorder F43.10 [facility] [address] [place] [address] 08/12/2024 Tiff Hammer Bipolar disorder, mo st recent episode depressed F31.30 ; Generalized anxiety disorder F41.1 ; Primary insomnia F51.01 and Panic attack F41.0 [place] [address] [place] [address] 09/30/2024 Esvin Jo Generalized anxiety disorder F41.1 and Depression, major, recurrent, mild F33.0 [facility] [address] [place] [address] 09/30/2024 Tiff Hammer Benign essential HTN I10 ; Bipolar disorder, most recent episode depressed F31.30 ; Generalized anxiety disorder F41.1 ; Primary insomnia F51.01 ; Panic attack F41.0 and Attention and concentration deficit R41.840 [facility] [address] [place] [address] 07/08/2024 Tiff Hammer Bipolar disorder, current episode depressed, mild or moderate severity, unspecified F31.30 [facility] [address] [place] [address] 11/02/[address] [facility] [address] [place] [address] 11/27/2024 Tiff Hammer Bipolar disorder, mo st recent episode depressed F31.30 [facility] [address] [place] [address] 11/28/2024 Tiff Hammer [facility] [address] [facility] [address] [facility] [address] [place] [address] 11/30/2024 Tiff Hammer Generalized anxiety disorder F41.[address] [facility] [address] [place] [address] 02/26/2025 Tiff Hammer Generalized anxiety disorder F41.1 and Bipolar disorder, most recent episode depressed F31.[address] [facility] [address] [place] [address] 02/27/2025 Tiff Hammer [address] [facility] [address] [place] [address] 02/28/2025 Tiff Hammer Generalized anxiety disorder F41.1 Assessments Encounter Date Diagnosis (ICD Code) Assessment Notes Treatment Notes Treatment Clinical Notes Section Notes 07/08/2024 Bipolar disorder, current episode depressed, mild [...] Kratom and pain pills. Client born in [place], [place] and grew up in [place] to parents who in 1977 when she [...] Kratom and pain pills. Client born in [place] and grew up in [place] to parents who in 1977 when she [...] Kratom and pain pills. Client born in [place] and grew up in [place] to parents who in 1977 when she [...] Kratom and pain pills. Client born in [place] and grew up in [place] to parents who in 1977 when she [...] psychosis, may not be good historian high caffeinecannabi s-cautioned with mood/anxiety/bi polar 06/27/2024 Generalized anxiety disorder (ICD-10 - F41.1) 53 year old female seen today for initial assessment to start individual psychotherapy. Client noted that she has seen Isidra for medication therapy for the past two or three months. History of anxiety depression and PTSD reported by client. Added that in 2004 she was diagnosed [facility] Bipolar Disorder. Anxiety and depression have been [...] Kratom and pain pills. Client born in [place] and grew up in [place] to parents who in 1977 when she [...] Kratom and pain pills. Client born in [place] and grew up in [place] to parents who in 1977 when she [...] Added that in 2004 she was diagnosed [facility] Bipolar Disorder. Anxiety and depression have been [...] Kratom and pain pills. Client born in [place] and grew up in [place] to parents who in 1977 when she [...] Kratom and pain pills. Client born in [place] and grew up in [place] to parents who in 1977 when she [...] 11/30/2024 Generalized anxiety disorder (ICD-10 - F41.1) 02/26/2025 Generalized anxiety disorder (ICD-10 - F41.1) 02/28/2025 Generalized anxiety disorder (ICD-10 - F41.1) 09/30/2024 [...] issues with concentration more indepth next visit 02/26/2025 Bipolar disorder, most recent episode depressed (ICD-10 - F31.30) 09/30/2024 Generalized anxiety disorder (ICD-10 - F41.1) [...] - Reevaluate cannabis use during follow-up visits 06/27/2024 Complex posttraumatic stress disorder (ICD-10 - F43.10) [...] Kratom and pain pills. Client born in [place] and grew up in [place] to parents who in 1977 when she was 8 years old. Client stated that her childhood sucked due to parents being alcoholics and absent. Client has a daughter who she worriesd a lot about and a son who of a drug over dose in 2019. 05/13/2024 Generalized anxiety disorder (ICD-10 - F41.1) cont hydroxyzine 25mg tab, take 1/2 to 1 tab BID prn anxiety/insomnia; minimize use cont decrease caffeine meds, therapy as above 04/26/2024 Complex posttraumatic stress disorder (ICD-10 - F43.10) 53 year old female seen today for initial assessment to start individual psychotherapy. Client noted that she has seen Isidra for medication therapy for the past two or three months. History of anxiety depression and PTSD reported by client. Added that in 2004 she was diagnosed [facility] Bipolar Disorder. Anxiety and depression have been [...] Kratom and pain pills. Client born in [place] and grew up in [place] to parents who in 1977 when she was 8 years old. Client stated that her childhood sucked due to parents being alcoholics and absent. Client has a daughter who she worriesd a lot about and a son who of a drug over dose in 2019. 07/22/2024 Post traumatic stress disorder (ICD-10 - F43.10) 53 year [...] Kratom and pain pills. Client born in [place] and grew up in [place] to parents who in 1977 when she was 8 years old. Client stated that her childhood sucked due to parents being alcoholics and absent. Client has a daughter who she worriesd a lot about and a son who of a drug over dose in 2019. 08/12/2024 Panic attack (ICD-10 - F41.0) Assessment and Plan: bipolar disorder - Patient [...] Reevaluate cannabis use during follow-up visits 09/30/2024 Primary insomnia (ICD-10 - F51.01) Bipolar disorder - Patient reports overall good [...] issues with concentration more indepth next visit 05/13/2024 Panic attack (ICD-10 - F41.0) noneas above 09/30/2024 Panic attack (ICD-10 - F41.0) Bipolar disorder - Patient reports overall good [...] issues with concentration more indepth next visit 05/13/2024 Primary insomnia (ICD-10 - F51.01) uses cannabis edibles to help sleepdecrease caffeinepractice good sleep hygiene 09/30/2024 Attention and concentration deficit (ICD-10 - R41.840) Bipolar disorder - Patient reports overall good [...] issues with concentration more indepth next visit 04/26/2024 Other Client participated in individual psychotherapy(C BT) related to her hx of anxiety depression and PTSD. Based on today's session continued pyshcotherapy is recommended with no changes to treatment plan. Client presented to session well groomed and fully oriented with no risk of harm to self or others. Client verbal engaged and tearful through out session. Reported upon presentation that she has been okay, so-so since last seen; but has been in a lot of physical and emotional pain. Noted she is scheduled to under go knee(left) replacement surgery in May. Focus of session centered on establishment of rapport and examining beliefs and thoughts which have supported and fueled depression anxiety and PTSD. 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 Session also addressed past relationships and how they have contributed to her mental health struggles. Client receptive to session feedback. Next session in three weeks. 53 year old female seen today for [...] Kratom and pain pills. Client born in [place] and grew up in [place] to parents who in 1977 when she was 8 years old. Client stated that her childhood sucked due to parents being alcoholics and absent. Client has a daughter who she worriesd a lot about and a son who of a drug over dose in 2019. 06/27/2024 Other Client participated in individual psychotherapy(C BT/supportve) related to her hx of anxiety and depression.Base d on today's session continued psychotherapy is recommended with no changes to treatment plan. Client presented to session well groomed and fully oriented with no risk of harm to self or others. Client verbal and engaged through out session. Reported upon presentation that she been okay since last seen on 04.26.2024. However stated that she broke left foot and has to wear a boot for a few weeks. As a result her knee surgery had to be rescheduled. Aside from broken foot stated that she has been pretty good with little to no depression or anxiety. Did state however that there are times when her anxiety is elevated especially surrouding daughter. Session accordingly helped client examine and identify thoughts and beliefs which have supported and fueled worry and anxiety through out her life. Admitted that she is often held mentally and emotionally hostage by her what if thoughts. Client receptive to session feedback. Next session in four weeks. 53 year old female seen today for [...] Kratom and pain pills. Client born in [place] and grew up in [place] to parents who in 1977 when she was 8 years old. Client stated that her childhood sucked due to parents being alcoholics and absent. Client has a daughter who she worriesd a lot about and a son who of a drug over dose in 2018. 07/22/2024 Other Client participated in individual psychotherapy(C BT/Supportive) related to her hx of anxiety and depression. Based on today's session continued psychotherapy with no changes to treatment plan. Client presented to session well groomed and fully oriented with no risk of harm to self or others. Client verbal and engaged through out session with appropriate mood and affect. Reported upon presentation that she has been okay since last seen on 06.27.2024. Added that she is scheduled to have an x-ray of her left foot in two weeks but is having knee (left) surgery on Monday of this week. Noted that she has been in a lot of pain since last seen. Added that Thanksgiving was half a mess at 's 90 year old aunt's home. Spoke at length about drama surrounding thanksgiving at aunt's home due to 's 36 year old female cousin (her mother)and her 36 year old boyfriend. Noted that cousin's boyfriend had sent her daughter inappropriate pictures of himself back in January. Cousin and her mother would not speak to client during Thanksgiving get together. Client provided supportive therapy. Next session in four weeks provided she has recovered from knee surgery. 53 year old female seen today for [...] Kratom and pain pills. Client born in [place] and grew up in [place] to parents who in 1977 when she was 8 years old. Client stated that her childhood sucked due to parents being alcoholics and absent. Client has a daughter who she worriesd a lot about and a son who of a drug over dose in 2019. 08/12/2024 Other Learning About Depression Screening material was printed Assessment and Plan: bipolar disorder - Patient [...] Reevaluate cannabis use during follow-up visits 09/30/2024 Other Client participated in indivdual psychotherapy(C BT/Supportive) related to her hx of anxiety, depression and PTSD. Based on today's session continued psychotherapy is recommended with on changes to treatment. Client presented to session well groomed and fully oriented with no risk of harm to self others. Client verbal and engaged through out session with appropriate mood and affect. Reported upon presentation that she is tired today and running ragged. Had a good weekend in spite of having worked on Monday which she normally does not do. Added she has been recovering nicely from left knee surgery. Focus of session on helping client understand the dynamics of anxiety. Admitted that she has been a life long worrier going back to the age of 6. Session also addressed client's childhood and how it contributed to and supported her anxiety as well as depression and PTSD. Client receptive to session feedback. Next session four weeks. 53 year old female seen today for [...] Kratom and pain pills. Client born in [place] and grew up in [place] to parents who in 1977 when she was 8 years old. Client stated that her childhood sucked due to parents being alcoholics and absent. Client has a daughter who she worriesd a lot about and a son who of a drug over dose in 2019. Plan Of Treatment No Information Insurance Providers Payer Name Payer Address Payer Phone Subscriber Number Group Number Insured Name Patient Relationship to Insured Coverage Start Date Coverage End Date [facility] [address] [place] [address] [id number] LEONID LOWE Self - patient is the insured Medical (General) History Medical History History ICD Code Past Psychiatric History: An xiety Disorder,Panic Disorder,PTSD,Major Depressive Episode,Bipolar Disorder undefined Primary insomnia chronic fatigue syndrome vitamin B12 deficiency vitamin D deficiency Benign essential hypertension I10 Degeneration of intervertebral disc of l umbar region M51.369 Surgical History Surgery Date(Month/Year) Repair of left inguinal hernia (59318548 0) section (49926895) x2 Abdominoplasty (810403387) Tonsilectomy/adenoids 08/21/1984 Removal of gallbladder (20282) 9 Hysterectomy (99314) 01/17/2001 Breast surgery (82368) 02/18/2007 Left knee replacement 08/27/2024 spinal surgery, replaces stimulator 08/22 12/13
--- OUTSIDE RECORDS SUMMARY | 2025-03-20 01:21 | XMS_ITS ---
Author Organization [facility] Address [address] [place] [address] Care Team Providers Care Wood Die Maker Name Role Phone Heriberto Pruitt MD Primary Care Provider Marty Medina MD Unavailable [phone] Active Problems Problem Noted Date Diagnosed Date [...] Overview (09/27/2023): PHYSICAL THERAPY CONSULT ORDERED VIA [facility]; REVIEWED X-RAY AND MRI WITH PT; F/U [...] 09/23/2020 Assessment & Plan (06/29/2021 9:22 AM EQUIPMENT WORKER): Patient has noticed an increase in migraine [...] dosing. Assessment & Plan (09/23/2020 9:19 AM EQUIPMENT WORKER): Patient is a former patient of [facility] being treated for chronic mixed-type headaches. She has had a recent exacerbation associated with COVID infection. At baseline she has been using topiramate for migraine prophylaxis and sumatriptan for abortive breakthrough of migraine and then on occasion using supplemental anti-inflammatory for muscle contraction type headaches. Prior medical records from [facility] have been reviewed today during this visit in effort to facilitate transfer in care. Her neurologic examination today is presently normal. Patient is requesting maintenance of her present medications including topiramate for migraine prophylaxis and sumatriptan for abortive breakthrough. Both the sumatriptan and topiramate have been renewed as previously prescribed a [facility]. I will plan on seeing her back in 1 year on an as-needed basis as necessary sooner. 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 Overview (11/21/2018): Added automatically from request for surgery [id number] Current Treatment and Therapy Plans No current plan information found. Past Treatment and Therapy Plans No past plan information found. Lifetime Dose Tracking * Chemical Lifetime Dose Automatic Entry Manual Entr y Fluoro Time 0.418 minutes 0.418 minutes 0 minutes Air kerma at the reference point (Ka,r) 16.12 mGy 1 6.12 mGy 0 mGy
--- OUTSIDE RECORDS SUMMARY | 2025-03-20 01:21 | XMS_ITS | Clinical Summary ---
Author Organization [facility] Address [address] [place] [address] Care Team Providers Care Inbound Call Center Representative Name Role Phone Heriberto Pruitt MD Primary [...] 3 Day Supply 10 tablet 3 Active Immunizations Immunization Administration Dates Next Due PFIZER [...] Comments Blood Pressure 131/86 08/22/2024 2:00 PM ELECTRONIC PREPRESS TECHNICIAN Pulse 72 08/22/2024 2:00 PM ELECTRONIC PREPRESS TECHNICIAN Temperature 36.4 C (97.5 F) 08/22/2024 9:39 AM ELECTRONIC PREPRESS TECHNICIAN Respiratory Rate 19 08/22/2024 2:00 PM ELECTRONIC PREPRESS TECHNICIAN Oxygen Saturation 97% 08/22/2024 2:00 PM ELECTRONIC PREPRESS TECHNICIAN Inhaled Oxygen Concentration - - Weight 81.6 kg (180 lb) 08/22/2024 9:39 AM ELECTRONIC PREPRESS TECHNICIAN Height 170.2 cm (5' 7) 08/22/2024 9:39 AM ELECTRONIC PREPRESS TECHNICIAN Body Mass Index 28.19 08/22/2024 9:39 AM ELECTRONIC PREPRESS TECHNICIAN Plan of Treatment Health Maintenance Due Date [...] on patient's age to complete this topic Insurance Care Teams Inbound Call Center Representative Relationship Specialty Start Date End Date Heriberto Pruitt MD PCP - General FAMILY PRACTICE 05/07/20
--- OUTSIDE RECORDS SUMMARY | 2025-03-20 01:22 | XMS_ITS | Referral Summary ---
Author Organization [facility] Address [address] [place] [address] Care Team Providers Care Manager Strategic Name Role Phone Heriberto Pruitt MD Primary Care Provider Marty Medina MD Unavailable [phone] Encounters Date Type Department Care Team Description 01/07/2025 Results Follow-Up [facility] Neurology [address] [place] [address] Melissa Maldonado NP MRI Brain WO Contrast 01/05/2025 1:56 PM CDT - 01/05/2025 11:59 PM CDT Hospital Encounter [facility] MRI [address] [place], [place] [address] Intractable migraine without aura and without status migrainosus; Memory disturbance Discharge Disposition: Discharge to home or self care from Last 3 Months Allergies No known [...] with your doctor before becoming . 4 Active golimumab (Simponi ARIA) 12.5 mg/mL solution [...] 10 tablet 5 5 11/20/19 26 Active galcanezumab-gnl m 120 mg/mL pen injector Inject 120 mg under the skin every 30 (thirty) days 1 mL 5 5 Active Active Problems Problem Noted Date [...] Overview (09/27/2023): PHYSICAL THERAPY CONSULT ORDERED VIA [facility]; REVIEWED X-RAY AND MRI WITH PT; [...] 09/23/2020 Assessment & Plan (06/29/2021 9:22 AM ENVELOPE FOLD OPERATOR): Patient has noticed an increase in [...] dosing. Assessment & Plan (09/23/2020 9:19 AM ENVELOPE FOLD OPERATOR): Patient is a former patient of [facility] being treated for chronic mixed-type headaches. She has had a recent exacerbation associated with COVID infection. At baseline she has been using topiramate for migraine prophylaxis and sumatriptan for abortive breakthrough of migraine and then on occasion using supplemental anti-inflammatory for muscle contraction type headaches. Prior medical records from [facility] have been reviewed today during this visit in effort to facilitate transfer in care. Her neurologic examination today is presently normal. Patient is requesting maintenance of her present medications including topiramate for migraine prophylaxis and sumatriptan for abortive breakthrough. Both the sumatriptan and topiramate have been renewed as previously prescribed a [facility]. I will plan on seeing her back in 1 year on an as-needed basis as necessary sooner. 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 Overview (11/21/2018): Added automatically from request for surgery [id number] Immunizations Immunization Administration Dates Next Due Flucelvax Influenza Quad 06/09/2017 Influenza, Quadrivalent, Split, Intramuscular Influenza, Quadrivalent, Spl it, Preservative Free, Intramuscular 06/02/2020,06/13/2018 Pneumococcal Polysaccharide PPV23 06/02/2020 Social History Tobacco Use Types Packs/Day Years Used Date Smoking Tobacco: Former Cigarettes Q uit: 2016 Smokeless Tobacco: Never Alcohol Use Standard Drinks/Week Comments Not Currently 0 (1 standard drink = 0.6 oz pur e alcohol) [facility] Utilities Answer Date Recorded In the [...] often do you attend chur ch or jehovah's witness services? Never 09/11/2024 Do you belong to any clubs o r organizations such as samaritan groups, unions, fraternal or athletic groups, or [...] time in the past 12 m [facility], were you homeless or living in a penitentiary (including now)? No 09/11/2024 Personal Safety Answer Date Recorded Have you ever been in or are you currently in a harmful physical or emotional relationship or is someone making you feel afraid or unsafe? Denies 09/13/2024 Comments No Sex and Gender Information Value Date Recorded Sex Assigned at Not on file Legal Sex Female 1:00 AM ENVELOPE FOLD OPERATOR Gender Identity Female 08/28/2022 4:57 PM ENVELOPE FOLD OPERATOR Sexual Orientation Straight 08/28/2022 4: 57 PM ENVELOPE FOLD OPERATOR Last Filed Vital Signs Vital Sign Reading Time Taken Comments Blood Pressure 120/70 11/19/2024 2:15 PM CDT Pulse 70 11/19/2024 2:15 PM CDT Temperature 36.7 C (98 F) 09/14/2024 8:50 AM ENVELOPE FOLD OPERATOR Respiratory Rate 20 11/19/2024 2:15 PM CDT Oxygen Saturation 94% 11/19/2024 2:15 PM CDT Inhaled Oxygen Concentration - - Weight 81.6 kg (180 lb) 11/19/2024 2:15 PM CDT Height 170.2 cm (5' 7) 11/19/2024 2:15 PM CDT Body Mass Index 28.19 11/19/2024 2:15 PM CDT Plan of Treatment Not on file Medical Devices Implanted Type Area Business Analyst Intern Device Identifier Shelf Expiration Date Model / Serial / Lot Biocomposites Stimulan Rapid Cure Kit Paste Windsmith 5cc 12.5cc Bone Void 620-005 - [id number] Implanted:Qty: 1 on 09/13/2024 by Marty Medina MD at [facility] Left: Back [employer] 620-005 / / [employer] Cover Edge Mri Business Analyst Manager Kit Implanted:Qty: 1 on 09/13/2024 by Marty Medina MD at [facility] Left: Back [employer] 08/08/2025 [id number]-[id number] 0 / / [employer] Neuro- Kit Generator Neurostimulator Pain Management Spine 32 Electrode Wavewriter Alpha [id number] Wy-1232 - [id number] - [id number] Implanted:Qty: 1 on 09/13/2024 by Marty Medina MD at [facility] Left: Back [employer] Neuro- [id number] 05/22/2026 [id number] / [id number] / [id number] Robert Lee [employer] Neuro- Clik Randolph Kit Nerve Stimulator Sterile Spinal Cord System [id number] - [id number] Implanted:Qty: 1 on 09/13/2024 by Marty Medina MD at [facility] Left: Back Robert Lee [employer] Neuro- [id number] 07/24/2026 [id number] / / Explanted Type Area Business Analyst Intern Device Identifier Shelf Expiration Date Model / Serial / Lot Generator Implantable Pulse Wavewriter [facility] - [id number] - [id number] Implanted:Qty: 1 on 02/01/2019 by Dontrell Danielson MD at [facility] Explanted:Qty: 1 on 09/13/2024 by Marty Medina MD at [facility] Left: Back [email or web address] Zoe C1820 12/04/2020 [id number] / [id number] / Procedures Procedure Name Priority Date/Time Associated [...] Adan Martinez M.D. YOEL: YOEL Report ID: [id number] Reading Location: [id number] Procedure Note Adan Martinez MD - 01/06/2025 EXAM DESCRIPTION: MRI BRAIN WO CONTRAST REASON FOR STUDY: Chronic nontraumatic migraine headaches for 2 years. No provided focal neurologic deficits. No provided history of inciting and/or aggravating events. No provided past medical or surgical history. TECHNIQUE: Multiplanar imaging includes non-contrasted T1, T2, FLAIR, and diffusion with ADC map sequences. Additional sequence(s) sensitive [employer]. Images stored on PACS. COMPARISON: CT head [...] Adan Martinez M.D. YOEL: YOEL Report ID: [id number] Reading Location: [place] [address] Melissa Maldonado NP IMG MRI PROCEDURES Final Res ult from Last 3 Months Insurance [facility] Advance Directives For more information, please contact: [phone] * Full Code (Latest Code Status on File) Date Activated Date Inactivated Comments 09/13/2024 4:19 PM 09/14/2024 4:56 PM Care Teams Manager Strategic Relationship Specialty Start Date End Date Heriberto Pruitt MD PCP - General Family Practice 09/23/20 Marty Medina MD Consulting Physician Neurosurgery 09/14/24
--- OUTSIDE RECORDS SUMMARY | 2025-03-20 01:22 | XMS_ITS | Clinical Summary ---
Author Organization [facility] Address [address] [place] [address] Care Team Providers Care Divinity Teacher Name Role Phone Heriberto Pruitt MD Primary Care Provider Marty Medina MD Unavailable [phone] Allergies No known active allergies Medications metoprolol [...] 09/23/2020 Assessment & Plan (06/29/2021 9:22 AM MORNING CAREGIVER): Patient has noticed an increase in migraine [...] dosing. Assessment & Plan (09/23/2020 9:19 AM MORNING CAREGIVER): Patient is a former patient of [facility] being treated for chronic mixed-type headaches. She has had a recent exacerbation associated with COVID infection. At baseline she has been using topiramate for migraine prophylaxis and sumatriptan for abortive breakthrough of migraine and then on occasion using supplemental anti-inflammatory for muscle contraction type headaches. Prior medical records from [facility] have been reviewed today during this visit in effort to facilitate transfer in care. Her neurologic examination today is presently normal. Patient is requesting maintenance of her present medications including topiramate for migraine prophylaxis and sumatriptan for abortive breakthrough. Both the sumatriptan and topiramate have been renewed as previously prescribed a [facility]. I will plan on seeing her back in 1 year on an as-needed basis as necessary sooner. 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 Overview (11/21/2018): Added automatically from request for surgery [id number] Encounters Date Type Department Care Team Description 01/07/2025 Results Follow-Up [facility] [address] [address] Melissa Maldonado NP MRI Brain WO Contrast 01/05/2025 1:56 PM CDT - 01/05/2025 11:59 PM CDT Hospital Encounter [facility] MRI [address] [place] [address] Intractable migraine without aura and without status migrainosus; Memory disturbance Discharge Disposition: Discharge to home or self care from Last 3 Months Immunizations Immunization Administration [...] drink = 0.6 oz pur e alcohol) [employer] Control[employer] Answer Date Recorded In the past 12 months has [employer], gas, oil, or water [employer] threatened to shut off services in your [...] 09/11/2024 How often do you attend chur or religion services? Never 09/11/2024 Do you belong to any clubs o r organizations such as rastafari groups, unions, fraternal or athletic groups, or [...] any time in the past 12 m [facility], were you homeless or living in a care home (including now)? No 09/11/2024 Personal Safety Answer Date Recorded Have you ever been in or are you currently in a harmful physical or emotional relationship or is someone making you feel afraid or unsafe? Denies 09/13/2024 Comments No Sex and Gender Information Value Date Recorded Sex Assigned at Not on file Legal Sex Female 1:00 AM MORNING CAREGIVER Gender Identity Female 08/28/2022 4:57 PM MORNING CAREGIVER Sexual Orientation Straight 08/28/2022 4: 57 PM MORNING CAREGIVER Obstetrics History Last Filed Vital Signs Vital Sign Reading Time Taken Comments Blood Pressure 120/70 11/19/2024 2:15 PM CDT Pulse 70 11/19/2024 2:15 PM CDT Temperature 36.7 C (98 F) 09/14/2024 8:50 AM MORNING CAREGIVER Respiratory Rate 20 11/19/2024 2:15 PM CDT [...] 2024 10/01/2021, 12/22/2020, 11/30/2020 Influenza Vaccine (#1) 2025 , 06/02/2020, 06/10/2019, Additional history exists DTaP/Tdap/Td Vaccine (2 - Td or Tdap) 07/06/2031 07/06/2021 Medical Devices Implanted Type Area Multicultural Manager Device Identifier Shelf Expiration Date Model / Serial / Lot Biocomposites Stimulan Rapid Cure Kit Paste Moisture Tester 5cc 12.5cc Bone Void 620-005 - [id number] Implanted:Qty: 1 on 09/13/2024 by Marty Medina MD at [facility] Left: Back [employer] 620-005 / / [employer] Cover Edge Mri Manager Resource Kit Implanted:Qty: 1 on 09/13/2024 by Marty Medina MD at [facility] Left: Back [employer] 08/08/2025 SC-8436-7 0 / / [employer] Neuro- Kit Generator Neurostimulator Pain Management Spine 32 Electrode Wavewriter Alpha M3650 Ri-1232 - [id number] - [id number] Implanted:Qty: 1 on 09/13/2024 by Marty Medina MD at [facility] Left: Back [employer] Neuro- [id number] 05/22/2026 PA-1232 / [id number] / [id number] [employer]formerly [employer] Scientific Neuro- Clik [place] Kit Nerve Stimulator Sterile Spinal Cord System [id number] - [id number] Implanted:Qty: 1 on 09/13/2024 by Marty Medina MD at [facility] Left: Back [place] Scientific Neuro- [id number] 07/24/2026 [id number] / / Explanted Type Area Multicultural Manager Device Identifier Shelf Expiration Date Model / Serial / Lot Generator Implantable Pulse Wavewriter Ipg - [id number] - [id number] Implanted:Qty: 1 on 02/01/2019 by Dontrell Danielson MD at [facility] Explanted:Qty: 1 on 09/13/2024 by Marty Medina MD at [facility] Left: Back [employer] Zoe C1820 12/04/2020 [id number] / [id number] / Procedures Procedure Name Priority Date/Time Associated [...] Adan Martinez M.D. YOEL: YOEL Report ID: [id number] Reading Location: [id number] Procedure Note Adan Martinez MD - 01/06/2025 EXAM DESCRIPTION: MRI BRAIN WO CONTRAST REASON FOR STUDY: Chronic nontraumatic migraine headaches for 2 years. No provided focal neurologic deficits. No provided history of inciting and/or aggravating events. No provided past medical or surgical history. TECHNIQUE: Multiplanar imaging includes non-contrasted T1, T2, FLAIR, and diffusion with ADC map sequences. Additional sequence(s) sensitive [employer]. Images stored on PACS. COMPARISON: CT head [...] Adan Martinez M.D. YOEL: YOEL Report ID: [id number] Reading Location: [place] [address] Melissa Maldonado NP IMG MRI PROCEDURES Final Res ult from Last 3 Months Insurance [facility] Advance Directives For more information, please contact: [phone] * Full Code (Latest Code Status on File) Date Activated Date Inactivated Comments 09/13/2024 4:19 PM 09/14/2024 4:56 PM Care Teams Divinity Teacher Relationship Specialty Start Date End Date Heriberto Pruitt MD PCP - General Family Practice 09/23/20 Marty Medina MD Consulting Physician Neurosurgery 09/14/24
--- OUTSIDE RECORDS SUMMARY | 2025-03-20 01:23 | XMS_ITS | Continuity of Care Document ---
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 (given by mouth) Discont inued 12/04/2024 4 2024 90.0 Ambulat ory Pharmac y metoprolol succinate ER 100 mg/24 hour tablet See Instruct ions, # 90 EA, 1 total refill(s ), Acute Discont inued 08/29/2023 3 2023 90.0 Ambulat ory Pharmac y metoprolol succinate ER 100 mg/24 hour tablet 100 mg, Oral, Daily, # 90 EA, 1 total refill(s ), Hard Stop Oral (given by mouth) Complet ed 05/18/2024 4 2023 90.0 Ambulat ory Pharmac y metoprolol succinate ER 100 mg/24 hour tablet = 1 tab(s), Oral, Daily, # 90 EA, 1 total refill(s ), Soft Stop Oral (given by mouth) Ordered 2024 90.0 Ambulat ory Pharmac y Milk Thistle 0 total refill(s ), Maintena nce Ordered 2023 0055C-3 [facility] miscellaneo us medication 63 EA, 0 Refill(s ), TAKE 1 CAPSULE BY MOUTH EVERY DAY X 7 DAYS, THEN INCREASE TOLERATE D TO 2 CAPSULES EVERY DAY X 7 DAYS, THEN 3 CAPSULES DAILY TOLERATE D, 0 total refill(s ), Soft Stop Discont inued 08/29/20232023 0055C-3 [facility] naltrexone 0 total refill(s ), Maintena nce Ordered 2023 0055C-3 [facility] omeprazole 40 mg oral delayed release capsule 90 cap(s), 0 Refill(s ), 0 total refill(s ), Soft Stop Discont inued 08/29/20232023 [facility] 40 mg capsule = 1 cap(s), Oral, Daily, # 90 EA, 3 total refill(s ), Hard Stop Oral (given by mouth) Ordered 05/01/2025 5 2024 90.0 Ambulat ory Pharmac y omeprazole DR 40 mg capsule 40 mg, Oral, Daily, # 90 EA, 3 total refill(s ), Hard Stop Oral (given by mouth) Discont inued 05/03/2024 4 2023 90.0 Ambulat ory Pharmac y ondansetron 4 mg oral tablet ondanset astrid 4 mg oral tablet Start Date: 04/09/21 Status: Ordered Repeat number: 1 Ordered 2020 No Facilit y Access predniSONE 2.5 mg oral tablet 30 EA, 0 Refill(s ), 0 total refill(s ), Soft Stop Discont inued 08/29/20232023 0055C-3 [facility] predniSONE 5 mg oral tablet 20 tab(s), 0 Refill(s ), 0 total refill(s ), Soft Stop Discont inued 08/29/20232023 0055C-3 [facility] predniSONE 5 mg tablet See Instruct ions, 0, # 20 EA, 0 total refill(s ), Hard Stop Complet ed 2024 4 2023 20.0 Ambulat ory Pharmac y predniSONE 5 mg tablet See Instruct ions, # 90 EA, 2 total refill(s ), Hard Stop Ordered 08/05/2025 4 2023 90.0 Ambulat ory Pharmac y Premarin 0.625 mg oral tablet 1 tab(s), Oral, Daily, # 90 tab(s), 3 total refill(s ), Maintena ore, Pharmacy : [facility] Oral (given by mouth) Discont inued 09/25/2024 4 2024 90.0 0055C-3 [facility] Premarin 0.9 mg oral tablet 1 tab(s), Oral, Daily, # 30 tab(s), 0 total refill(s ), Maintena ore, Pharmacy : [facility] Oral (given by mouth) Discont inued 09/25/2024 4 2024 30.0 0055C-3 [facility] Premarin 0.9 mg oral tablet 1 tab(s), Oral, Daily, # 90 tab(s), 3 total refill(s ), [place], Pharmacy : [facility] Oral (given by mouth) Discont inued 09/25/2024 4 2024 90.0 0055C-3 [facility] Premarin 0.9 mg tablet See dose instruct ions in comments , # 90 EA, 2 total refill(s ), Acute Complet ed 08/08/2023 3 2022 90.0 Ambulat ory Pharmac y QUEtiapine 200 mg oral tablet TAKE 2 TABLETS BY MOUTH EVERY NIGHT AT BEDTIME, # 60 EA, 1 total refill(s ), Acute Discont inued 08/29/2023 3 2023 60.0 Ambulat ory Pharmac y QUEtiapine 300 mg oral tablet TAKE ONE TABLET AT BEDTIME, # 90 EA, 1 total refill(s ), Acute Complet ed 04/17/2023 2 2022 90.0 Ambulat ory Pharmac y SULFASALAZI JERI HOOD (sulfasalaz ine), 500 MG, TABLET DR ORAL, Pro Hoop Strength [facility]., 300 ea. BOTTLE Cancele d [id number] : 2023 0 Pharmac y Data Transac tion Service Facilit y sulfaSALAzi ne EC 500 mg tablet = 2 tab(s), Oral, BID, # 360 EA, 1 total refill(s ), Soft Stop Oral (given by mouth) Ordered 5 2024 360.0 Ambulat ory Pharmac y sulfaSALAzi ne EC 500 mg tablet See Instruct ions, # 360 EA, 0 total refill(s ), Soft Stop Ordered 5 2024 360.0 Ambulat ory Pharmac y sulfaSALAzi ne EC 500 mg tablet See Instruct ions, # 360 EA, 0 total refill(s ), Hard Stop Complet ed 06/27/2024 4 2023 360.0 Ambulat ory Pharmac y SUMAtriptan 100 mg oral tablet 9 tab(s), 0 Refill(s ), 0 total refill(s ), Soft Stop Ordered 2023 0055C-3 [facility] SUMAtriptan 100 mg oral tablet SUMAtrip hernandez 100 mg oral tablet Start Date: 04/09/21 Stop Date: 08/29/23 Status: Disconti nudanielle Repeat number: 1 Discont inued 08/29/20232023 No Facilit y Access SUMAtriptan 100 mg tablet See Instruct ions, # 9 EA, 5 total refill(s ), Hard Stop Complet ed 09/27/2024 4 2024 9.0 Ambulat ory Pharmac y SUMAtriptan 100 mg tablet See dose instruct ions in comments , # 9 EA, 5 total refill(s ), Acute Complet ed 08/24/2023 3 2023 9.0 Ambulat ory Pharmac y topiramate 200 mg oral tablet TAKE ONE TABLET BY MOUTH TWICE A DAY, # 180 EA, 1 total refill(s ), Acute Discont inued 08/29/2023 3 2023 180.0 Ambulat ory Pharmac y traMADol 50 mg oral tablet 10 EA, 0 Refill(s ), 0 total refill(s ), Soft Stop Ordered 2023 0055C-3 [facility] traMADol 50 mg tablet See Instruct ions, Oral, # 90 EA, 5 total refill(s ), Hard Stop Oral (given by mouth) Complet ed 04/13/2024 4 2023 90.0 Ambulat ory Pharmac y traMADol 50 mg tablet See Instruct ions, Oral, # 90 EA, 3 total refill(s ), Hard Stop Oral (given by mouth) Complet ed 02/01/2025 5 2024 90.0 Ambulat ory Pharmac y traZODone 50 mg oral tablet 180 tab(s), 0 Refill(s ), 0 total refill(s ), Soft Stop Discont inued 08/29/20232023 0055C[facility]3 [facility] mg tablet See Instruct ions, # 60 EA, 0 total refill(s ), Hard Stop Discont inued 08/29/2023 3 2023 60.0 Ambulat ory Pharmac y traZODone 50 mg tablet See Instruct ions, # 180 EA, 0 total refill(s ), Hard Stop Discont inued 08/29/2023 3 2023 180.0 Ambulat ory Pharmac y traZODone 50 mg tablet See Instruct ions, # 180 EA, 0 total refill(s ), Hard Stop Discont inued 02/02/2024 3 2023 180.0 Ambulat ory Pharmac y turmeric Oral, Daily, 0 total refill(s ), Maintena nce Oral (given by mouth) Ordered 2023 0055C-3 [facility] Marty ubrogepant 100 mg tablet See Instruct ions, # 10 EA, 5 total refill(s ), Soft Stop Ordered 5 2024 10.0 Ambulat ory Pharmac y valACYclovi r 500 mg oral tablet 30 tab(s), 0 Refill(s ), 0 total refill(s ), Soft Stop Discont inued 08/29/20232023 0055C-3 [facility] Marty valACYclovi r 500 mg oral tablet 3 total refill(s ) Discont inued 08/29/20232023 No Facilit y Access valACYclovi r 500 mg tablet See Instruct ions, # 90 EA, 2 total refill(s ), Acute Complet ed 08/08/2023 3 2022 90.0 Ambulat ory Pharmac y Valtrex 500 mg oral tablet 1 tab(s), Oral, Daily, # 30 tab(s), 0 total refill(s ), 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, 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, 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 : [facility] Oral (given by mouth) Complet ed 2024 4 2023 30.0 0055C-3 [facility] 500 mg oral tablet 1 tab(s), Oral, Daily, # 90 tab(s), 3 total refill(s ), Maintena [facility], Pharmacy : [facility] Oral (given by mouth) Ordered 4 2023 90.0 0055C-3 [facility] Vitamin B Complex oral capsule Oral, Daily, 0 total refill(s ), Maintena ore Oral (given by mouth) Ordered 2023 0055C-3 [facility] Vitamin C Daily, 0 total refill(s ), Maintena nce Ordered 2023 0055C-3 [facility] Vitamin D3 125 mcg (5000 intl units) oral capsule 90 cap(s), 0 Refill(s ), 0 total refill(s ), Soft Stop Ordered 2023 0055C-3 [facility] Vitamin D3 125 mcg (5000 intl units) oral capsule 1 cap(s), Oral, Daily, with food, # 90 cap(s), 3 total refill(s ), [facility], Pharmacy : [facility] Oral (given by mouth) Ordered 4 2023 90.0 0055C-3 [facility] Vraylar 1.5 mg capsule 1.5 mg, Oral, Daily, # 30 EA, 1 total refill(s ), Hard Stop Oral (given by mouth) Discont inued 02/09/2024 4 2023 30.0 Ambulat ory Pharmac y Vraylar 1.5 mg capsule 1.5 mg, Oral, Daily, # 30 EA, 1 total refill(s ), Hard Stop Oral (given by mouth) Discont inued 02/02/2024 4 2023 30.0 Ambulat ory Pharmac y Vraylar 3 mg capsule = 1 cap(s), Oral, Daily, # 90 EA, 0 total refill(s ), Hard Stop Oral (given by mouth) Discont inued 08/16/2024 4 2023 90.0 Ambulat ory Pharmac y Vraylar 3 mg capsule 3 mg, Oral, Daily, # 30 EA, 1 total refill(s ), Hard Stop Oral (given by mouth) Discont inued 03/15/2024 4 2023 30.0 Ambulat ory Pharmac y Vraylar 3 mg capsule See Instruct ions, # 90 EA, 0 total refill(s ), Hard Stop Discont inued 07/09/2024 4 2023 90.0 Ambulat ory Pharmac y Vraylar 3 mg capsule 3 mg, Oral, # 90 EA, 0 total refill(s ), Hard Stop Oral (given by mouth) Complet ed 06/11/2024 4 2023 90.0 Ambulat ory Pharmac y Allergies, Adverse Reactions, Alerts Combined list of allergies from Department of Defense and Veterans Affairs facilities. It does not include entries that were removed or entered in error. Substance Category Reaction Severity Reaction type Status Date Reported Comments Source NO OUTPUT FOR NCID 401871 Drug allergy (disorder) active 02/14/2008 [facility] Immunizations Combined list of available immunizations from the Department of Defense and Veterans Affairs facilities. 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 Status Comments Source COVID-19, mRNA, LNP-S, PF, 30 mcg/0.3 mL dose, jaylene-sucrose 2021 [place] (PFR) Not Given COVID-19, mRNA, LNP-S, PF, 30 mcg/0.3 mL dose, jaylene-sucr ose DoD tetanus toxoid, reduced diphtheria toxoid, and acellular pertu is vaccine, adsorbed 1 2020 Unknown, Provider [id number] [employer] (SKB) complet ed tetanus toxoid, reduced diphtheri a toxoid, and acellular pertussis vaccine, adsorbed DoD Influenza, injectable, quadrivalent, preservative free 1 2020 Unknown, Provider [id number] 150 [employer] (SKB) complet ed Influenza , injectabl e, quadrival ent, preservat dagmar free DoD Influenza, injectable, MDCK, preservative free, quadrivalent 2016 ALUL, () Not Given Influenza , injectabl e, MDCK, preservat dagmar free, quadrival ent DoD Results Combined list of recent chemistry, hematology and other laboratory results from Department of Defense and Veterans Affairs, ranging from 15 months to all on record, depending upon the facility. Order Name Results Value Reference Range Date Interpretation Specimen Comments Source AP Specimen s HPV Genotype 18 Negative 5 (08/29/23 4:11 PM) 08/29 N Interpretiv e Data: HPV GENOTYPE 18 Negative: NEGATIVE for HPV genotype 18 DNA. HPV GENOTYPE 18 Positive: POSITIVE for HPV genotype 18 DNA. The regina HPV Test is a qualitative in vitro test for the detection Human Papillomavi kady in clinician-c ollected cervical and vaginal specimens. It detects the following high-risk HPV types 16, 18, 31, 33, 35, 39, 45, 51, 52, 56, 58, 66, and 68. Note: The modificatio n to specimen source of vaginal was developed and its performance characteris tics determined by [facility], [facility]. Vaginal source has not been cleared or approved by the U. S. Food and Drug Administrat Who@. This modified vaginal specimen HPV test is for clinical purposes. This laboratory is certified under the Clinical Laboratory Improvement Amendments of 1988 (CLIA-88) as qualified to perform high complexity clinical laboratory testing. Clinician collected PreservCyt ThinPrep vaginal specimen are an approved additional specimen source, based on an internal laboratory validation. Limitations : A negative result does NOT preclude the presence of HPV infection because results depend on adequate specimen collection, absence of inhibitors and sufficient DNA to be detected. Correlation with cytologic findings is recommended as applicable. Questions about process or methodology contact Molecular Department at or [phone]. Unknown Organizat ion AP Specimen s HPV Genotype 16 Negative 7 (08/29/23 4:11 PM) 08/29 N Interpretiv e Data: HPV GENOTYPE 16 Negative: NEGATIVE for HPV DNA genotype 16 DNA. HPV GENOTYPE 16 Positive: POSITIVE for HPV genotype 16 DNA. The regina HPV Test is a qualitative in vitro test for the detection Human Papillomavi kady in clinician-c ollected cervical and vaginal specimens. It detects the following high-risk HPV types 16, 18, 31, 33, 35, 39, 45, 51, 52, 56, 58, 66, and 68. Note: The modificatio n to specimen source of vaginal was developed and its performance characteris tics determined by [employer], [facility]. Vaginal source has not been cleared or approved by the U. S. Food and Drug Administrat Who@. This modified vaginal specimen HPV test is for clinical purposes. This laboratory is certified under the Clinical Laboratory Improvement Amendments of 1988 (CLIA-88) as qualified to perform high complexity clinical laboratory testing. Clinician collected PreservCyt ThinPrep vaginal specimen are an approved additional specimen source, based on an internal laboratory validation. Limitations : A negative result does NOT preclude the presence of HPV infection because results depend on adequate specimen collection, absence of inhibitors and sufficient DNA to be detected. Correlation with cytologic findings is recommended as applicable. Questions about process or methodology contact Molecular Department at or [phone]. Unknown [facility] Specimen s HPV Typing High Risk Negative 6 (08/29/23 4:11 PM) 08/29 N Interpretiv e Data: HPV Typing High Risk Negative: NEGATIVE for concurrentl y detecting the rest of the 12 high risk types HPV DNA (31,33,35,3 9,45,51,52, 56,58,59,66 and 68) without differentia tion. HPV Typing High Risk Positive: POSITIVE for concurrentl y detecting the rest of the 12 high risk types HPV DNA (31,33,35,3 9,45,51,52, 56,58,59,66 and 68) without differentia tion. The regina HPV Test is a qualitative in vitro test for the detection Human Papillomavi kady in clinician-c ollected cervical and vaginal specimens. It detects the following high-risk HPV types 16, 18, 31, 33, 35, 39, 45, 51, 52, 56, 58, 66, and 68. Note: The modificatio n to specimen source of vaginal was developed and its performance characteris tics determined by [employer]. Vaginal source has not been cleared or approved by the U. S. Food and Drug Administrat Who@. This modified vaginal specimen HPV test is for clinical purposes. This laboratory is certified under the Clinical Laboratory Improvement Amendments of 1988 (CLIA-88) as qualified to perform high complexity clinical laboratory testing. Clinician collected PreservCyt ThinPrep vaginal specimen are an approved additional specimen source, based on an internal laboratory validation. Limitations : A negative result does NOT preclude the presence of HPV infection because results depend on adequate specimen collection, absence of inhibitors and sufficient DNA to be detected. Correlation with cytologic findings is recommended as applicable. Questions about process or methodology contact Molecular Department at [phone] or [phone]. 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 [id number] 75 Cytology Gynecolo gic Report Patient: Hui Sutherland Specimen #: [id number] [facility] ID:: [id number] [facility]: [id number] Taken: 08/29/2023 08:08 /Age: [birth year] (Age: 53) Received : 4 08:18 Physicia n(s:): YOAN MOREIRA Reported : 4 Specimen (s) Received Taken Rec Thin Prep - Vaginal w/o reflex HPV 08/29/2023 08:08 4 08:18 Final Diagnosi s Thin Prep - Vaginal w/o reflex HPV: Satisfac tory for evaluati on. Atypical squamous cells of undeterm ined signific ance (ASCUS). This Pap test was evaluate d with the assistan ce of the Thin Prep Test Imaging System. Due to cytologi c findings at the [employer] microsco pe or selectio n of the case for QC, comprehe nsive manual re-scree patrick by a cytotech nologist was required . Elect ronicall y Signed by Hailee Brizuela MD, , , [employer] Clinical Diagnosi s and History s/p JADEN/BSO with hx YUKI; co test 3yrs if neg Prior History Signed Out Specimen # Interpre tation 07/10/20 20 [id number] Negative for Intraepi thlial Lesion or Malignan cy 03/20/20 17 [id number] NEGATIVE CPT Codes: A; 99853, 65836 The Pap test is a screenin g test for precurso rs of squamous cell carcinom a with an irreduci ble false negative rate of around 5%. It is not designed to detect glandula r lesions. A negative test does not ensure that no disease is present. 08/29 [facility] Chemistr y Triglyceri danny 124 mg/dL 7 - 149 06/16 N Interpretiv e Data: AGES 0-9: Desirable: < 75 mg/dL Borderline High: 75-99 mg/dL High: >/= 100 mg/dL AGES 10-19: Desirable: < 90 mg/dL Borderline High: 90-129 mg/dL High: >/= 130 mg/dL ADULTS: Desirable: < 150 mg/dL Borderline High: 150-199 mg/dL High: >/= 240 mg/dL Very High: >/= 500 mg/dL [facility] Chemistr y Chol/HDL 3 mg/dL 06/16 [facility] Chemistr y LDL/HDL 2 06/16 [facility] Chemistr y HDL Cholestero l 77 mg/dL 40 - 59 06/16 H Interpretiv e Data: HDL (HIGH DENSITY LIPOPROTEIN ): ADULTS: Low: < 40 mg/dL High: >/= 60 mg/dL AGES 0 -19: Low: < 40 mg/dL Borderline Low: 40 - 45 mg/dL Acceptable: > 45 mg/dL [facility] Chemistr y Cholestero l Total 230 mg/dL 06/16 H Interpretiv e Data: According to the [employer] : AGES 0-19: Desirable: < 170 mg/dL Borderline High: 170-199 mg/dL High Blood Cholesterol : >/= 200 mg/dL ADULTS: Desirable < 200 mg/dL Borderline High: 200-239 mg/dL High Blood Cholesterol : >/= 240 mg/dL [facility] var[facility] Chemistr y LDL 139 mg/dL 100 - 130 06/16 H Interpretiv e Data: AGES 0-19: Desirable: < 110 mg/dL Borderline High: 110-129 mg/dL High: >/= 130 mg/dL ADULTS: Desirable: <100 mg/dL Near/above optimal: 100-130 mg/dL Borderline High: 131-159 mg/dL High: 160-189 mg/dL Very High: 190 mg/dL -375 [facility] varsha Vital Signs Combined list of inpatient and outpatient Vital Signs from Department of Defense and [facility], ranging from 12 months to all on record, depending upon the facility. Vital Sign Value Date Comments Source Mean Arterial Pressure, Calc 97 mm[Hg] 08/29/2023 20:01:00 [facility] Temperature Oral 36.7 Jerri 08/29/2023 20:01:00 [facility] Peripheral Pulse Rate 64 bpm 08/29/2023 20:01:00 [facility] Respiratory Rate 14 br/min 08/29/2023 20:01:00 [facility] Systolic Blood Pressure 124 mm[Hg] 08/29/2023 20:01:00 [facility] Diastolic Blood Pressure 84 mm[Hg] 08/29/2023 20:01:00 [facility] Encounters Combined list of: 1) Encounters from Department of Veterans Affairs facilities going backup to the last 18 months, not all [place] inpatient encounters are included; 2) Encounters from the Department of [facility] facilities going backup to 280 months. Location Location Details Encounter Type Encounter Number Reason For Visit Attending Provider ADM Date DC Date Status Disposition Source [place] ([employer] [facility] Res) OUTPATIENT [id number] f/u on back pain BEBO MADISONJARVIS Mcnally 04/04 Released w/o Limitations [place] ([employer] [facility])(AM H [address] Res) [place] ([employer] [facility])([address] Res) TELE CONSULT [id number] refill on Premari n 0.62mg EWA MADISON S 08/10 [place] ([employer] [facility])(AM H [address] Res) [place] ([employer] [facility])([address] Res) OUTPATIENT [id number] BACK PAIN/RE FERRAL NICKI SHIELDS 08/29 Released w/o Limitations [place] ([employer] [facility])([place] [id number] Res) [place] ([employer] Dut) OUTPATIENT [id number] 35y/o needs test results ALIN MCKEON Oral 10/18 Released w/o Limitations [place] ([employer])([place] [id number] W[place] Dut) [place] ([facility])([facility] -Pediatri cs) OUTPATIENT [id number] UPDATIN G/ has 2792/OP R@[facility] SHIRA BOYDMirtha Nova 02/06 Released w/o Limitations [place] ([facility])([facility] -Pediat rics) [place] ([facility])([address] Dut) OUTPATIENT [id number] PPD SHOT DENISE BALDWIN OM 02/22 Released w/o Limitations [place] ([facility])([place] [id number] [facility] Dut) [place] ([employer])([address] Dut) OUTPATIENT [id number] Read PPD ROYA MIRANDA 02/24 Released w/o Limitations [place] ([facility])([place] [id number] [facility] Dut) [place] ([facility])([address] Res) OUTPATIENT [id number] 35y/o needs work PE ABDELRAHMAN DACOSTA 03/07 Released w/o Limitations [place] ([employer])([address] Res) [place] ([facility])([address] Res) OUTPATIENT [id number] female // back problem NICKI SHIELDS 04/14 Released w/o Limitations [place] ([facility])([place] [id number] [facility] Res[facility] [place] ([facility])([facility] WF Dut) TELE CONSULT [id number] UTI symptom s RAKESH KING 04/19 [place] ([facility])( H 5A WF Dut) [place] ([facility])([facility] M05E WF Hon) TELE CONSULT [id number] UA results RAKESH KING 04/19 [place] ([facility])(AM H M05E WF Hon) [place] ([facility])([facility] M05E WF Hon) OUTPATIENT [id number] abdomin al pain MARTY KAMARA 06/09 Released w/o Limitations [place] ([facility])(AM H M05E WFM Hon) [place] ([facility])([facility] AMIC Cl) OUTPATIENT [id number] BAKARI Cortez 07/08 Released w/o Limitations [place] ([facility])([facility] AMI Cl) [place] ([facility])([facility] M05D WFM Int) TELE CONSULT [id number] ANTONIO LEE 08/23 [place] ([facility])(AM H M05D WFM Int) [place] ([facility])([facility] M05C WF Res) TELE CONSULT [id number] referANTONIO Lugo 08/29 [place] ([facility])(AM H M05C WF Res) [place] ([facility])([facility] M05E WF Hon) OUTPATIENT [id number] PAMELA Pittman 12/14 Released w/o Limitations [place] ([facility])(AM H M05E WF Hon) [place] ([facility])([facility] M05D WFM Int) TELE CONSULT [id number] ANTONIO GARCÍA 12/18 [place] ([facility])(AM H M05D WFM Int) [place] [facility] [facility]) OUTPATIENT [id number] headach e/cough /sore chest JORGE GILL 12/23 Released w/o Limitations [facility] Cl) [facility] Cl) OUTPATIENT [id number] deep cough/w hejoseing EWA MADISON 12/30 Released w/o Limitations [facility] Cl) [facility] Cl) OUTPATIENT [id number] hurts and blood w/urkarla GILL JORGE Marty 01/14 Released w/o Limitations [facility])([facility] Cl) [facility])([facility] M[facility] W[facility] Int) OUTPATIENT [id number] possibANTONIO Klein 02/02 Released w/o Limitations [facility])(AM H M05D WFM Int) [facility])([facility] M[facility] WFM Int) TELE CONSULT [id number] REFILL ANTONIO LEE 03/27 [facility])([facility] M05D WFM Int) [facility] M[facility] Int) OUTPATIENT [id number] MEDS UPDATE ANTONIO LEE 04/19 Released w/o Limitations [facility])([facility] M05D WFM Int) [facility])([facility] M[facility]C WFM Res) TELE CONSULT [id number] Rx ANTONIO LEE 05/04 [facility])([facility] M05C WFM Res) [facility] M[facility]D WFM Int) TELE CONSULT [id number] Referra ANTONIO Garcia 05/08 [facility])([facility] M05D WFM Int) [facility])([facility] M[facility]D WFM Int) TELE CONSULT [id number] Missed your phone call ANTONIO LEE 05/10 [facility])(AM [facility] M05D WFM Int) [facility])([facility] M05A WFM Dut) TELE CONSULT [id number] uti s/s SONIDO PURDY 05/14 [facility])(AM H M05A WFM Dut) [facility] M05D WFM Int) TELE CONSULT [id number] CheleinalANTONIO Alfonso 05/30 [facility]AM [facility] M05D WFM Int) [facility] M[facility] WFM Int) OUTPATIENT [id number] FEVER/C OUGHING ANTONIO LEE 10/12 Released w/o Limitations [facility])([facility] M05D WFM Int) [facility] M[facility]D WFM Int) TELE CONSULT [id number] COMPLET SUJIT OUT ANTONIO LEE 11/19 [facility])([facility] M05D WFM Int) [facility])([facility] M05E WFM Hon) TELE CONSULT [id number] Possibl e LYRIC ALBRIGHT 11/27 [facility])(AM H M05E WFM Hon) [facility])([facility] M05D WFM Int) TELE CONSULT [id number] Lab results ANTONIO LEE 11/28 [facility]AM H M05D WFM Int) [facility])([facility] M05E WFM Hon) TELE CONSULT [id number] labs DENISE LOVE 11/28 [facility])(AM H M05E WFM Hon) [facility])([facility] M05C WFM Res) OUTPATIENT [id number] FOLLOW UP ER LETTY GARCIA 12/20 Released w/o Limitations [facility])(AM H M05C WFM Res) [facility] M05D WFM Int) TELE CONSULT [id number] UTI LETTY GARCIA 12/24 [facility]AM [facility] M05D WFM Int) [facility] M05D WFM Int) TELE CONSULT [id number] MEDICAT ION NOT WORKING ANTONIO LEE 12/27 [facility])(AM H M05D WFM Int) [facility] su[facility]ya Cl) OUTPATIENT [id number] test results ANTONIO LEE 01/10 Released w/o Limitations [facility]DO PC [place] dated Cl) [facility])([facility] M05D WFM Int) TELE CONSULT [id number] Medicat ion ANTONIO LEE 02/13 [facility]AM [facility] M05D WFM Int) [facility] F[facility]A [place] T[place] A) OUTPATIENT [id number] initial visit// meds/ev al pelvic pain EMELIACITLALY 10/13 Released w/o Limitations [facility])([facility] F[facility]A [place] T[place] A) [facility] F[facility] [place] [facility] A) TELE CONSULT [id number] CT result AIMEE CHAU 10/23 Referred for Appointment [facility]AM H F[facility]A [place] T[place] A) [facility])([facility] F06B [place] T[place] B) TELE CONSULT [id number] Patient having UTI sxs needs u/a culture results TIFFANIE SOLIS 10/24 [facility])(AM H F06B [place] T[place] B) [facility] F[facility]A [place] [facility] A) OUTPATIENT [id number] follow up radiolo gy results CITLALY KAPOOR 11/01 Released w/o Limitations [facility])(AM H F06A [place] T[place] A) [facility])(Daniela roenterol ogy) OUTPATIENT [id number] COLO PREOP AND REPORT FIORDALIZA FOWLER 11/03 Released w/o Limitations [facility])(Ga stroent erology ) [facility])(Daniela roenterol ogy) TELE CONSULT [id number] Colonos copy Report JEFFREY SOTELO 11/06 [facility])(Ga stroent erology ) [facility] [place] A) OUTPATIENT [id number] F/U Colonsc opy ALYSHA FISCHER W 11/16 Released w/o Limitations [facility])(AM H F[facility]A [place] [facility] A) [facility] F[facility] [place] [facility] A) TELE CONSULT [id number] AIMEE Hammonds 12/28 Referred for Appointment [facility] F[facility]A [place] [facility] A) [facility] F[facility] [place] [facility] A) TELE CONSULT [id number] TRIAGE - UTI/Est dotty RIOS MARY KAY Radha 02/06 [facility] H F[facility]A [place] [facility] A) [facility] F[facility]A [place] [facility] A) TELE CONSULT [id number] Request for med adjustm ent CITLALY KAPOOR 02/06 [facility]AM H F[facility]A [place] [facility] A) [facility])([facility] F06B [place] T[place] B) TELE CONSULT [id number] Please call pt DENISE MCLEAN 02/12 Released to Self Care [facility])(AM H F[facility]B [place] T[place] B) [facility] F[facility] [place] [facility] A) OUTPATIENT [id number] Medicat ion Managem ent/Nick ght Loss Surgery Inquiry CITLALY KAPOOR 03/26 Released w/o Limitations [facility] F[facility]A [place] [facility] A) [facility] F06B [place] T[place] B) OUTPATIENT [id number] REOCURR ING EAR INF ALYSHA FISCHER W 04/11 Released w/o Limitations [facility])([facility] H F[facility]B [place] T[place] B) [facility] F[facility] [place] [facility] A) OUTPATIENT [id number] FOLLOW UP MED CHANGE CITLALY KAPOOR 04/18 Released w/o Limitations [facility] F[facility]A [place] [facility] A) [facility])([facility] F[facility] [place] [facility] A) OUTPATIENT [id number] FOLLOW UP/HTN MEDICAT ION CITLALY KAPOOR 04/30 Released w/o Limitations [facility])(AM H F[facility]A [place] T[place] A) [facility] F[facility]A [place] T[place] A) TELE CONSULT [id number] Notes Entered by: AIMEE CHAU 14 May 2012 1300 ------- ------- ------- ------- -- Medicat ion refill EMELIASARAAmparo Rosen 05/14 [facility] F[facility]A [place] [facility] A) [facility] F[facility] [place] [facility] A) OUTPATIENT [id number] Notes Entered by: MELANIA RIOS I 04 Jul 2012 1114 ------- ------- ------- ------- -- WALK IN TRIAGE - Blood in urine MARY KAY RIOS I 07/04 Released w/o Limitations [facility] F[facility]A [place] [facility] A) [facility])([facility] F[facility] [place] [facility] A) OUTPATIENT [id number] FOLLOW UP CITLALY KAPOOR 07/17 Released w/o Limitations [facility])([facility] H F[facility]A [place] T[place] A) [facility])([facility] F[facility]A [place] [facility] A) OUTPATIENT [id number] Notes Entered by: EDMUNDO CRISOSTOMO 06 Sep 2012 1433 ------- ------- ------- ------- -- Sore throat EDMUNDO STOLL 09/06 Released w/o Limitations [facility] F[facility]A [place] [facility] A) [facility])([facility] F[facility]A [place] T[place] A) TELE CONSULT [id number] Notes Entered by: AIMEE CHAU 11 Sep 2012 1150 ------- ------- ------- ------- -- Medicat ion refill ISACAIMEE VILLAREAL Marlys 09/11 Referred for Appointment [facility] ([facility])(AM H F[facility]A [place] [facility] A) [facility] [place] [facility] A) OUTPATIENT [id number] medicat ion refills blood pressur e check CITLALY KAPOOR 10/11 Released w/o Limitations [facility] F[facility]A [place] [facility] A) [facility] F[facility]A [place] [facility] A) TELE CONSULT [id number] Notes Entered by: CLARY ARCEO 11 Oct 2012 1502 ------- ------- ------- ------- -- MED REFILL CLARY ARCEO 10/11 [facility] ([facility])(AM H F06A [place] T[place] A) [facility] ([facility])([facility] F06A [place] T[place] A) TELE CONSULT [id number] Notes Entered by: CITLALY KAPOOR 22 Oct 2012 1314 ------- ------- ------- ------- -- Lab result CLARY ARCEO 10/22 [facility] ([facility])(AM H F06A [place] T[place] A) [facility] ([facility])([facility] F06A [place] T[place] A) OUTPATIENT [id number] nausea/ headach e/diarr CITLALY Johnson 12/07 Released w/o Limitations [facility] ([facility])(AM H F06A [place] T[place] A) [facility] F[facility] [place] [facility] A) OUTPATIENT [id number] INTENSE MIGRAIN E HEADACH E//605 TIMOTHY HAMILTON 01/24 Released w/o Limitations [facility] ([facility])(AM H F06A [place] T[place] A) [facility] F[facility]A [place] T[place] A) OUTPATIENT [id number] med CITLALY Sterling 01/28 Released w/o Limitations [facility] H F[facility]A [place] T[place] A) [facility])([facility] F[facility]A [place] T[place] A) OUTPATIENT [id number] Cat scan results EMELIACITLALY OROZCO Candy 02/01 Released w/o Limitations [facility]AM H F[facility]A [place] T[place] A) [facility])([facility] F[facility]A [place] T[place] A) OUTPATIENT [id number] SUMIT Valentino 02/14 Released w/o Limitations [facility])(AM H F06A [place] T[place] A) [facility])([facility] F[facility]A [place] T[place] A) TELE CONSULT [id number] Notes Entered by: AIMEE CHAU 06 Mar 2013 1159 ------- ------- ------- ------- -- Relay Health Message AIMEE Felix 03/06 Referred for Appointment [facility] F[facility]A [place] [facility] A) [facility])([facility] F[facility]A [place] [facility] A) OUTPATIENT [id number] SUMIT Cisneros 03/11 Released w/o Limitations [facility])(AM H F06A [place] T[place] A) [facility])(Gyne cology) OUTPATIENT [id number] History of hystere ctomy JAMES COTO 03/22 Released w/o Limitations [facility])(Gy necolog y) [facility])([facility] M05C WFM Res) TELE CONSULT [id number] Notes Entered by: JAMES COTO 29 Mar [id number] ------- ------- ------- ------- -- lab results JAMES COTO 03/30 [facility])(AM H M05C WFM Res) [facility])([facility] F[facility]A [place] [facility] A) OUTPATIENT [id number] possibl e UTI/inf ection 04/11/13 CITLALY KAPOOR 04/11 Released w/o Limitations [facility])(AM H F[facility]A [place] T[place] A) [facility])([facility] F[facility]A [place] T[place] A) OUTPATIENT [id number] Re-eval BP and meds CITLALY KAPOOR 05/14 Released w/o Limitations [facility])(AM H F[facility]A [place] T[place] A) [facility])([facility] F06A [place] T[place] A) OUTPATIENT [id number] f/u b/p CITLALY KAPOOR 05/31 Released w/o Limitations [facility])(AM H F06A [place] T[place] A) [facility])([facility] F06A [place] T[place] A) OUTPATIENT [id number] FOLLOW UP BP CITLALY KAPOOR 06/14 Released w/o Limitations [facility])(AM H F06A [place] T[place] A) [facility])([facility] F06A [place] T[place] A) TELE CONSULT [id number] Notes Entered by: CLARY ARCEO 15 Jul 2013 1308 ------- ------- ------- ------- -- CLARY Ramirez 07/15 [facility] H F[facility]A [place] T[place] A) [facility])([facility] F[facility]A [place] T[place] A) OUTPATIENT [id number] POSS UTI JONG MORALES 07/16 Released w/o Limitations [facility]AM H F06A [place] T[place] A) [facility])([facility] F06A [place] T[place] A) OUTPATIENT [id number] uti JONG MORALES 08/19 Released w/o Limitations [facility])(AM H F06A [place] T[place] A) [facility])([facility] F06A [place] T[place] A) TELE CONSULT [id number] Notes Entered by: PRIMITIVO MORALES Rhonda Mcnally 19 Aug 2013 1148 ------- ------- ------- ------- -- lab results - UTI CARMENJONG Dali 08/19 [facility] H F[facility]A [place] T[place] A) [facility])([facility] F06A [place] T[place] A) TELE CONSULT [id number] Notes Entered by: EDMUNDO CRISOSTOMO 22 Aug 2013 1528 ------- ------- ------- ------- -- Continu ed bladder /kidney pain EDMUNDO STOLL 08/22 [facility])(AM H F[facility]A [place] T[place] A) [facility])(Urol ogy) OUTPATIENT [id number] urinary frequen CLARISA Nicole 08/23 Released w/o Limitations [facility])(Ur ology) [facility])([facility]H F06A [place] T[place] A) TELE CONSULT [id number] Notes Entered by: EDMUNDO CRISOSTOMO 26 Aug 2013 1648 ------- ------- ------- ------- -- Lab results EDMUNDO STOLL 08/26 [facility])(AM H F06A [place] T[place] A) [facility])(Urol ogy) OUTPATIENT [id number] MARIAN RICE 09/12 Released w/o Limitations [facility])(Ur ology) [facility])([facility] F06A [place] T[place] A) TELE CONSULT [id number] Notes Entered by: CLARY ARCEO 11 Oct 2013 1342 ------- ------- ------- ------- -- Med refill CLARY ARCEO 10/11 [facility])(AM H F06A [place] T[place] A) [facility])(Urol ogy) OUTPATIENT [id number] f/u flow-CLARISA Andrade 10/14 Released w/o Limitations [facility])(Ur ology) [facility])([facility] F06A [place] T[place] A) TELE CONSULT [id number] Notes Entered by: CLARY ARCEO 18 Oct 2013 1200 ------- ------- ------- ------- -- Med refill CLARY ARCEO 10/18 [facility])(AM H F06A [place] T[place] A) [facility])([facility] F06A [place] T[place] A) OUTPATIENT [id number] CITLALY Muniz 11/11 Released w/o Limitations [facility])(AM H F06A [place] T[place] A) [facility])(Nia gency Room) OUTPATIENT [id number] OLEGARIO DIAZ 11/18 Released w/o Limitations [facility])(Em ergency Room) [facility])([facility]H F06A [place] T[place] A) TELE CONSULT [id number] Notes Entered by: CLARY ARCEO 27 Dec 2013 1101 ------- ------- ------- ------- -- Med refill CLARY ARCEO 12/27 [facility])(AM H F[facility]A [place] T[place] A) [facility])(AMH F07A HM Tm A) OUTPATIENT [id number] NICKI Kim 01/27 Released w/o Limitations [facility])(AM H F07A HM Tm A) [facility])([facility] F06A [place] T[place] A) TELE CONSULT [id number] Notes Entered by: MELANIA RIOS I 28 Jan 2014 1015 ------- ------- ------- ------- -- Continu [facility] Appt MARY KAY RIOS Radha 01/28 [facility])(AM H F[facility]A [place] T[place] A) [facility])([facility] F06A [place] T[place] A) OUTPATIENT [id number] f/u [facility] eval stomach issues KATHRYN PIPER 01/31 Released w/o Limitations [facility])(AM H F06A [place] T[place] A) [facility])([facility] F06A [place] T[place] A) OUTPATIENT [id number] f/u stomach CITLALY KAPOOR 02/18 Released w/o Limitations [facility])(AM H F06A [place] T[place] A) [facility])([facility] F06A [place] T[place] A) OUTPATIENT [id number] RESC//F /U ULTRASO UND CITLALY KAPOOR 02/26 Released w/o Limitations [facility])(AM H F06A [place] T[place] A) [facility])([facility] F06A [place] T[place] A) TELE CONSULT [id number] Notes Entered by: MISHA MENDEZ 07 Mar 2014 1355 ------- ------- ------- ------- -- Medicat ion MISHA Miller 03/07 Referred for Appointment [facility])(AM H F[facility]A [place] T[place] A) [facility])(EFMP -Pediatri cs) OUTPATIENT [id number] QUANG Lawson 03/11 Released w/o Limitations [facility])(EF MP -Pediat rics) [facility])(Urol ogy) TELE CONSULT [id number] Notes Entered by: ALFREDO DENTON 13 Mar 2014 1319 ------- ------- ------- ------- -- RETURN PT CALL MELLO ROSA Rhonda 03/13 [facility] ([facility])(Ur ology) [facility] ([facility])(Urol ogy) OUTPATIENT [id number] SHAN FABIANAYSECLARISAN 03/21 Released w/o Limitations [facility] ([facility])(Ur ology) [facility] ([facility])(Urog ynecology ) OUTPATIENT [id number] Abdomin al pain CROSS FADI JR 03/21 Released w/o Limitations [facility] ([facility])(Ur ogyneco logy) [facility] ([facility])(Gene ral Surgery) OUTPATIENT [id number] Abdomin al pain CHRIS SAN 03/27 Released w/o Limitations [facility] ([facility])(Ge neral Surgery ) [facility] ([facility])(AMH F06A [place] T[place] A) TELE CONSULT [id number] Notes Entered by: MISHA MENDEZ 15 Apr 2014 1326 ------- ------- ------- ------- -- med refill MISHA MENDEZ 04/15 Referred for Appointment [facility] ([facility])(AM H F06A [place] T[place] A) [facility]War rior Op Med Cln Tm A Ad) OUTPATIENT [id number] Discuss about health conditi on and medicat ion, [id number] JUAN GUZMAN 02/10 Released w/o Limitations [facility])(W arrior Op Med Cln Tm A Ad) [facility])(War rior Op Med Cln Tm A Ad) OUTPATIENT [id number] blood presure reading s 144/104 for 10 days DARSHAN GUERRIER 02/27 Released w/o Limitations [facility])(W arrior Op Med Cln Tm A Ad) [facility])(War rior Op Med Cln Tm A Ad) OUTPATIENT [id number] f/u high blood pressur e / [phone] 2 JUAN GUZMAN 03/13 Released w/o Limitations [address] [place] [address])(W arrior Op Med Cln Tm A Ad) [address] [place] [address])(Sco tt Disease Managemen t) TELE CONSULT [id number] Notes Entered by: Robby LEWIS 14 Mar 2017 1037 ------- ------- ------- ------- -- Diabeti c Educati on JESUS LEWIS 03/[address] [place] [address])(S sohan Disease Manage ent) [address] [place] [address])(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) OUTPATIENT [id number] annual well-wo man exam / [phone] 2 YOAN MOREIRA 03/15 Released w/o Limitations [address] [place] [address])(G auracosulma gy) [address] [place] [address])(Sco tt [facility]) OUTPATIENT [id number] stress r/t new diagnos is-pre diabete s YUVAL PAUL 03/21 Released w/o Limitations [address] [place] [address])(S sohan [facility]) [address] [place] [address])(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) TELE CONSULT [id number] Notes Entered by: HUMBERTO DIAZ LT T 21 Mar 2017 1346 ------- ------- ------- ------- -- Pap result SIN NGUYEN 03/[address] [place] [address])(G ynecosulma gy) [address] [place] [address])(War rior Op Med Cln Tm A Ad) OUTPATIENT [id number] Notes Entered by: SAULO PASTRANA 04 Apr 2017 1023 ------- ------- ------- ------- -- Walk in MG ARANDA 04/04 Released w/o Limitations [address] [place] [address])(W arrior Op Med Cln Tm A Ad) [address] [place] [address])([facility]) OUTPATIENT [id number] Notes Entered by: NOELLE RAMIREZ 06 Apr 2017 1105 ------- ------- ------- ------- -- GLB #2 NOELLE RAMIREZ 04/06 Released w/o Limitations [address] [place] [address])(N utritio nal Medicin e) [address] [place] [address])(Sco tt [facility]) OUTPATIENT [id number] f/u YUVAL PAUL 04/10 Released w/o Limitations [address] [place] [address])(S cott [facility]) [address] [place] [address])(War rior Op Med Cln Tm A Ad) TELE CONSULT [id number] Notes Entered by: LISBETH SALCIDO 17 Apr 2017 1709 ------- ------- ------- ------- -- JANKI SHEETS 04/17 Referred for Appointment [address] [place] [address])(W arrior Op Med Cln Tm A Ad) [address] [place] [address])(War rior Op Med Cln Tm A Ad) OUTPATIENT [id number] F/U Lab results [id number] DICKSON SCOTT 06/15 Released w/o Limitations [address] [place] [address])(W arrior Op Med Cln Tm A Ad) [address] [place] [address])(Sco tt Disease Managemen t) TELE CONSULT [id number] Notes Entered by: Robby LEWIS 16 Jun 2017 0814 ------- ------- ------- ------- -- Diabeti c Managem ent JESUS LEWIS 06/[address] [place] [address])(S cott Disease Manage ent) [address] [place] [address])(Med ication Refill Clinic) TELE CONSULT [id number] Notes Entered by: SHAWNA GUALLPA 31 Jul 2017 0835 ------- ------- ------- ------- -- Med Renewal / Thomas / - sgj CARMEN MCLEOD 07/[address] [place] [address])(M edicati on Refill Clinic) [address] [place] [address])(Med ication Refill Clinic) TELE CONSULT [id number] Notes Entered by: YURIDIA BRAXTON 28 Aug 2017 1212 ------- ------- ------- ------- -- Bridge - med refill - 3 pills left - Thomas - [phone] CARMEN MCLEOD 08/[address] [place] [address])(M edicati on Refill Clinic) [address] [place] [address])(War rior Op Med Cln Tm A Ad) OUTPATIENT [id number] f/u on labs, med, [phone] 2 JUAN GUZMAN 09/14 Released w/o Limitations [address] [place] [address])(W arrior Op Med Cln Tm A Ad) [address] [place] [address])(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) TELE CONSULT [id number] Notes Entered by: Amparo BAIN 31 Oct 2017 0847 ------- ------- ------- ------- -- [employer] Med Renewal Request / [phone] - ajh DARLENE NEAL 10/[address] [place] [address])(Caitlin thomas) [address] [place] [address])(War rior Op Med Cln Tm A Ad) TELE CONSULT [id number] Notes Entered by: LUKAS FOUNTAIN 05 Dec 2017 0726 ------- ------- ------- ------- -- [employer] Med Renewal Inquiry / Thomas / - JESUS Moscoso 12/05 [facility])(W arrior Op Med Cln Tm A Ad) [facility])(War rior Op Med Cln Tm A Ad) TELE CONSULT [id number] Notes Entered by: YULISA LUDWIG 18 Jan 2018 0858 ------- ------- ------- ------- -- Retro referra rhonda Guzman - - JANKI uRbalcava 01/18 Referred for Appointment [facility])(W arrior Op Med Cln Tm A Ad) [facility])(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) OUTPATIENT [id number] annual WWE YOAN MOREIRA 04/19 Released w/o Limitations [facility])(G ynecolo gy) [facility])(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) TELE CONSULT [id number] Notes Entered by: CHAN COHEN 10 Jun 2019 1311 ------- ------- ------- ------- -- Rx Refill STONEY CALIXTO 06/10 Referred for Appointment [facility])(G ynecolo gy) [facility])(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) OUTPATIENT [id number] WWE/ med refill [id number] YOAN MOREIRA 06/18 Released w/o Limitations [address] [place] [address] Group [facility])(G ynecolo gy) [facility])(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) OUTPATIENT [id number] WWE [id number] YOAN MOREIRA 06/30 Released w/o Limitations [address] [place] [address] Group [facility])(G ynecolo gy) [address] [place] [address] [facility])(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) TELE CONSULT [id number] Notes Entered by: BRISEIDA GAGE 14 Jul 2020 1541 ------- ------- ------- ------- -- lab results DARLENE NEAL 07/14 Released to [facility] [address] [place] [address])( ynecolo gy) [address] [place] [address])(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) TELE CONSULT [id number] Notes Entered by: DARLENE NEAL 20 Jul 2020 1549 ------- ------- ------- ------- -- Tests results DARLENE NEAL 07/20 Released to [facility] [address] [place] [address] [facility])( ynecolo gy) [address] [place] [address])(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) TELE CONSULT [id number] Notes Entered by: DARLENE NEAL 11 Jun 2021 1548 ------- ------- ------- ------- -- appt DARLENE NEAL 06/11 Referred for Appointment [address] [place] [address])( ycoco gy) [address] [place] [address] [facility])(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) OUTPATIENT [id number] 2 WWE, h/o dysplas ia YOAN MOREIRA 06/23 Released w/o Limitations [address] [place] [address])( ynecolo gy) [address] [place] [address])(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) TELE CONSULT [id number] Notes Entered by: GAGE MOREIRA 20 Jul 2021 1233 ------- ------- ------- ------- -- results DARLENE NEAL 07/20 Released to [facility] [address] [place] [address])(G ynecolo gy) [address] [place] [address])(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) TELE CONSULT [id number] Notes Entered by: Greg MULTANI 19 Jul 2022 0912 ------- ------- ------- ------- -- Rx JESÚSRAFIQ PARISAmparo Hidalgo 07/19 Released to [facility] [address] [place] [address])(G ynecolo gy) [address] [place] [address])(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) OUTPATIENT [id number] 5 [facility] YOAN MOREIRA 08/08 Released w/o Limitations [address] [place] [address])(G ynecolo gy) [address] [place] [address])(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 Procedure Procedure Type Code Date Perfomer Comments Sourc e Cystourethroscopy (separate procedure) Cystourethroscopy (separate procedure) 92872 08/21 0055C-[facility] left inguinal hernia repair 07/21 0055C[facility] spinal cord stimulator 08/21 again 2018 0055C[facility] disc replacement C4-C6 08/21 0055C[facility] Abdominoplasty Abdominoplasty (procedure) [id number] 08/21 0055C[facility] disc replacement L5-S1 08/21 0055C[facility] ariana breast reduction 08/21 0055C[facility] JADEN/BSO 08/21 done for YUKI 3 0055C-3 [facility] lap choley 08/21 0055C[facility] C/S with BTL 08/21 0055C-[address] [place] [address] Marty WTE 08/21 0055C-[address] [place] [address] Marty delivery Deliveries by (finding) [id number] 08/21 0055C-[address] [place], [place] [address]Brandon Fergsuon D+C x3 08/21, 1990 0055C-[address] [place] [address] Marty tonsillectoy 08/215C-[address] [place] [address] Marty adenoids removed 08/215C-[address] [place] [address] Marty UNLISTED THERAPEUTIC, PROPHYLACTIC OR DIAGNOSTIC INJECTION 11/08 [facility] UNLISTED THERAPEUTIC, PROPHYLACTIC OR DIAGNOSTIC INJECTION 10/13 [facility] ENDOMETRIAL SAMPLING (BIOPSY) WITH OR WITHOUT ENDOCERVICAL SAMPLING (BIOPSY), WITHOUT CERVICAL DILATION, ANY METHOD (SEPARATE PROCEDURE) 10/12 [facility] SMEAR, PRIMARY SOURCE WITH INTERPRETATION; WET MOUNT FOR INFECTIOUS AGENTS (EG, SALINE, RADHA INK, WENDI PREPS) 08/23 [facility] LOW CERVICAL SECTION 05/26 [facility] OTHER BILATERAL LIGATION AND DIVISION OF FALLOPIAN TUBES 05/26 [facility] CYSTOURETHROSCOPY (SEPARATE PROCEDURE) 09/17 [facility] UROGRAPHY (PYELOGRAPHY), INTRAVENOUS, WITH OR WITHOUT KUB, WITH OR WITHOUT TOMOGRAPHY; 09/09 [facility] SCREENING PAPANICOLAOU SMEAR; OBTAINING, PREPARING AND CONVEYANCE OF CERVICAL OR VAGINAL SMEAR TO LABORATORY 07/25 [facility] ELECTROCARDIOGRAM, ROUTINE ECG WITH AT LEAST 12 LEADS; WITH INTERPRETATION AND REPORT 04/06 [facility] CERVICAL, FLEXIBLE, NON-ADJUSTABLE, PREFABRICATED, [id number] (FOAM COLLAR) 08/26 [facility] INDIVIDUAL PSYCHOTHERAPY, INSIGHT ORIENTED, BEHAVIOR MODIFYING AND/OR SUPPORTIVE, IN AN OFFICE OR OUTPATIENT FACILITY, APPROXIMATELY 45 TO 50 MINUTES [id number] WITH THE PATIENT 05/06 [facility] INDIVIDUAL PSYCHOTHERAPY, INSIGHT ORIENTED, BEHAVIOR MODIFYING AND/OR SUPPORTIVE, IN AN OFFICE OR OUTPATIENT FACILITY, APPROXIMATELY 45 TO 50 MINUTES [id number] WITH THE PATIENT 04/15 [facility] INTERACTIVE GROUP PSYCHOTHERAPY 04/11 [facility] INDIVIDUAL PSYCHOTHERAPY, INSIGHT ORIENTED, BEHAVIOR MODIFYING AND/OR SUPPORTIVE, IN AN OFFICE OR OUTPATIENT FACILITY, APPROXIMATELY 45 TO 50 MINUTES [id number] WITH THE PATIENT 04/08 [facility] INDIVIDUAL PSYCHOTHERAPY, INSIGHT ORIENTED, BEHAVIOR MODIFYING AND/OR SUPPORTIVE, IN AN OFFICE OR OUTPATIENT FACILITY, APPROXIMATELY 45 TO 50 MINUTES [id number] WITH THE PATIENT 03/25 [facility] PSYCHIATRIC DIAGNOSTIC INTERVIEW EXAMINATION 03/08 [facility] SCREENING [place]OLAOU SMEAR; OBTAINING, PREPARING AND CONVEYANCE OF CERVICAL OR VAGINAL SMEAR TO LABORATORY 07/03 [facility] TELE ASSESS & MGT SRV PROV QUAL NONPHYS HLTH CARE PRO TO EST PAT,PARENT,GUARD NOT ORIG REL ASSESS & MGT SRV PROV W/IN PREV 7 DAYS NOR LEAD ASSESS & MGT SRV/PX W/IN NXT 24 HR/SOON APT;5-10 MIN MED DIS 01/18 [facility] TELE ASSESS & MGT SRV PROV QUAL NONPHYS HLTH CARE PRO TO EST PAT,PARENT,GUARD NOT ORIG REL ASSESS & MGT SRV PROV W/IN PREV 7 DAYS NOR LEAD ASSESS & MGT SRV/PX W/IN NXT 24H/SOON APT; 21-30 MIN MED DIS 12/05 [facility] TELE ASSESS & MGT SRV PROV QUAL NONPHYS HLTH CARE PRO TO EST PAT,PARENT,GUARD NOT ORIG REL ASSESS & MGT SRV PROV W/IN PREV 7 DAYS NOR LEAD ASSESS & MGT SRV/PX W/IN NXT 24H/SOON APT; 21-30 MIN MED DIS 06/16 [facility] TELE ASSESS & MGT SRV PROV QUAL NONPHYS HLTH CARE PRO TO EST PAT,PARENT,GUARD NOT ORIG REL ASSESS & MGT SRV PROV W/IN PREV 7 DAYS NOR LEAD ASSESS & MGT SRV/PX W/IN NXT 24 HR/SOON APT;5-10 MIN MED DIS 04/17 [facility] BRIEF EMOTIONAL/BEHAVIORAL ASSESSMENT (EG, DEPRESSION INVENTORY, ATTENTION-DEFICIT/HYPE RACTIVITY DISORDER [ADHD] SCALE), WITH SCORING AND DOCUMENTATION, PER STANDARDIZED INSTRUMENT 04/10 [facility] MEDICAL NUTRITION THERAPY; GROUP (2 OR MORE INDIVIDUAL(S)), EACH 30 MINUTES 04/06 [facility] URINALYSIS; QUALITATIVE OR SEMIQUANTITATIVE, EXCEPT IMMUNOASSAYS 04/04 [facility] BRIEF EMOTIONAL/BEHAVIORAL ASSESSMENT (EG, DEPRESSION INVENTORY, ATTENTION-DEFICIT/HYPE RACTIVITY DISORDER [ADHD] SCALE), WITH SCORING AND DOCUMENTATION, PER STANDARDIZED INSTRUMENT 03/21 [facility] SCREENING PAPANICOLAOU SMEAR; OBTAINING, PREPARING AND CONVEYANCE OF CERVICAL OR VAGINAL SMEAR TO LABORATORY 03/15 [facility] DISEASE MANAGEMENT PROGRAM; INITIAL ASSESSMENT AND INITIATION OF THE PROGRAM 03/14 [facility] CYSTOURETHROSCOPY (SEPARATE PROCEDURE) 03/21 [facility] TELE ASSESS & MGT SRV PROV QUAL NONPHYS HLTH CARE PRO TO EST PAT,PARENT,GUARD NOT ORIG REL ASSESS & MGT SRV PROV W/IN PREV 7 DAYS NOR LEAD ASSESS & MGT SRV/PX W/IN NXT 24 HR/SOON APT;5-10 MIN MED DIS 03/13 [facility] MEASUREMENT OF POST-VOIDING RESIDUAL URINE AND/OR BLADDER CAPACITY BY ULTRASOUND, NON-IMAGING 09/12 [facility] THERAPEUTIC, PROPHYLACTIC, OR DIAGNOSTIC INJECTION (SPECIFY SUBSTANCE OR DRUG); SUBCUTANEOUS OR INTRAMUSCULAR 12/07 [facility] TELE ASSESS & MGT SRV PROV QUAL NONPHYS HLTH CARE PRO TO EST PAT,PARENT,GUARD NOT ORIG REL ASSESS & MGT SRV PROV W/IN PREV 7 DAYS NOR LEAD ASSESS & MGT SRV/PX W/IN NXT 24 HR/SOON APT;5-10 MIN MED DIS 02/12 [facility] UNLISTED SPECIAL SERVICE, PROCEDURE OR REPORT 11/06 [facility] COLONOSCOPY, FLEXIBLE; WITH BIOPSY, SINGLE OR MULTIPLE 11/06 [facility] TELE ASSESS & MGT SRV PROV QUAL NONPHYS HLTH CARE PRO TO EST PAT,PARENT,GUARD NOT ORIG REL ASSESS & MGT SRV PROV W/IN PREV 7 DAYS NOR LEAD ASSESS & MGT SRV/PX W/IN NXT 24 HR/SOON APT;5-10 MIN MED DIS 10/24 [facility] NONINVASIVE EAR OR PULSE OXIMETRY FOR OXYGEN SATURATION; SINGLE DETERMINATION 12/30 [facility] SCREENING PAPANICOLAOU SMEAR; OBTAINING, PREPARING AND CONVEYANCE OF CERVICAL OR VAGINAL SMEAR TO LABORATORY 12/14 [facility] SKIN TEST; TUBERCULOSIS, INTRADERMAL 02/22 [facility] HEALTH&BEHAV ASSESSMENT (EG, HEALTH-FOC CLINICAL INTERVIEW, BEHAVIORAL OBSERVATIONS, PSYCHOPHYSICOLOGICAL MONITOR, HEALTH-ORIENT QUESTIONNAIRES), EA 15 MIN [id number] W THE PATIENT; INIT ASSESSMENT 01/31 [facility] SKIN TEST; TUBERCULOSIS, INTRADERMAL 05/04 [facility] INDIVIDUAL PSYCHOTHERAPY, INSIGHT ORIENTED, BEHAVIOR MODIFYING AND/OR SUPPORTIVE, IN AN OFFICE OR OUTPATIENT FACILITY, APPROXIMATELY 75 TO 80 MINUTES [id number] WITH THE PATIENT 04/22 [facility] Non-Physician Phone Call To Patient/Provider Brief (5-10min) Non-Physician Phone Call To Patient/Provider Brief (5-10min) [id number] 01/19 JANKI LAI Non-Physician Phone Call To Pt/Provider Lengthy (21-30 min) Non-Physician Phone Call To Pt/Provider Lengthy (21-30 min) [id number] 12/06 JESUS LEWIS Disease management program, follow-up/ara e ment 12/06 JESUS LEWIS Patient Counseling Medical Management Individual Patient Patient Counseling Medical Management Individual Patient [id number] 12/06 JESUS LEWIS Non-Physician Phone Call To Pt/Provider Lengthy (21-30 min) Non-Physician Phone Call To Pt/Provider Lengthy (21-30 min) [id number] 06/16 JESUS LEWIS Disease management program, follow-up/ara e ment 06/16 JESUS LEWIS Patient Counseling Medical Management Individual Patient Patient Counseling Medical Management Individual Patient [id number] 06/16 JESUS LEWIS Non-Physician Phone Call To Patient/Provider Brief (5-10min) Non-Physician Phone Call To Patient/Provider Brief (5-10min) [id number] 04/18 JANKI LAI Medical Nutrition Therapy Group (2 or More Individual(s)) Medical Nutrition Therapy Group (2 or More Individual(s)) [id number] 04/07 NOELLE RAMIREZ [facility] Urinalysis Urinalysis [id number] 04/04 PEDRO PAULSON [facility] Non-Physician Phone Call To Pt/Provider Intermed (11-20 min) Non-Physician Phone Call To Pt/Provider Intermed (11-20 min) [id number] 03/16 JESUS LEWIS Patient Counseling Medical Management Individual Patient Patient Counseling Medical Management Individual Patient [id number] 03/16 JESUS LEWIS Disease management program; initial a e ment and initiation of the program 03/16 JESUS LEWIS Screening papanicolaou smear; obtaining, preparing and conveyance of cervical or vaginal smear to laboratory 03/15 YOAN MOREIRA [facility] Cystoscopy (Diagnostic) Cystoscopy (Diagnostic) 30351 03/21 CLARISA DENTON [facility] Measuremt Post-Voiding Resid Urine, Bladder Capacity Ultrasd Measuremt Post-Voiding Resid Urine, Bladder Capacity Ultrasd 57074 09/13 MARIAN BOYD [facility] Bladder Flow Rate Studies Bladder Flow Rate Studies 46712 09/13 MARIAN BOYD [facility] Supervised Injection Intramuscular Supervised Injection Intramuscular 10820 12/11 CITLALY KAPOOR Patient tolerated procedure well. [facility] Non-Physician Phone Call To Patient/Provider Brief (5-10min) Non-Physician Phone Call To Patient/Provider Brief (5-10min) [id number] 02/14 DENISE MCLEAN [facility] Colonoscopy For Forceps Biopsy 11/06 JEFFREY SOTELO [facility] Non-Physician Phone Call To Patient/Provider Brief (5-10min) Non-Physician Phone Call To Patient/Provider Brief (5-10min) [id number] 10/24 TIFFANIE SOLIS [facility] Pulse Oximetry Pulse Oximetry 39561 12/30 EWA MADISON [facility] Hepatitis B Vaccine (Active); 20 Years and Above 02/22 OLEGARIO GABRIEL [facility] Skin Test Anergy tuberculin Skin Test Anergy tuberculin 72742 02/22 OLEGARIO GABRIEL [facility] Immunization Administration One Vaccine Immunization Administration One Vaccine 22819 02/22 OLEGARIO GABRIEL Patient presented to immunizations for updates, she does not know where her yellow shot record is, and there is no documentation on 601 in chart. Looked thru medical records page by page and found one Hep B injection documented. HepB 1ml given intramuscular in left deltoid, PPD placed in left forearm interdermal as requested. Patient instructed to return on Monday to have PPD read, and look around the house for yellow shot record. [facility] Health And Behav A e mt Each 15 Min Initial A e ment Health And Behav Assessmt Each 15 Min Initial Assessment [id number] 02/06 JOAN BOYD [facility] Screening papanicolaou smear; obtaining, preparing and conveyance of cervical or vaginal smear to laboratory YOAN MOREIRA [facility] Social History Combined list of available smoking, tobacco, and other social history from Department of Defense and Veterans Affairs facilities. Social History Type Response Date Comment [facility] e Sex Representation Female (finding) 06/22/2021 Unknown Organization Tobacco Cigarette use: Former-cigarette user. Average PACKS per day: (10 cigarettes = 0.5 packs) 0.5. Total years of smoking cigarettes: 10. *Total pack years (*reqd for current/former users to complete the Rec. Packs/day times total years) 5. *Stopped cigarettes age (*required for former users to complete the Recommendation) 27 Years. Other Tobacco use: Never-other tobacco user (not cigarettes). [facility] Sexual Orientation Ambula tory Pharmacy Gender identity Ambulator y Pharmacy This section is an empty social history section. [facility] Assessment and Plan Combined list of future care activities from Department of Defense and Veterans Affairs facilities (e.g., assessment and plan notes, appointments, orders, and referrals). Additional future care activities may be listed in the Plan of Care section. Result Assessment and Plan Date Source Assessment and Plan Extracted from:Title : [employer]/ET, incontinence Author: YOAN MOREIRA NP Date: 08/29/23 1. E ncounter for gynecological examination (general) (routine) with abnormal findings Over 50% of m inute visit spent face to face with patient on education, reviewing history, and developing plan of care. Continue monthly BSE and yearly well woman exams. Return to clinic in 1 year. Exercise: 30 minutes of moderate exercise 5 days a week including cardio and strength training is recommended for a healthy lifestyle. T his should be in addition to your normal daily work/routine. If you are trying to lose weight more exercise along with a healthy diet is recommended. Supplements/Vitamins: If you are not following, or able to follow a well-balanced diet indicated below due to personal or medical reasons, it is recommended you take a m ultivitamin. This is especially important if you are trying to get as w omen need additional folic acid before and during (400-1000 micrograms per day). Daily calcium intake should be around 1200 mg per day w hich is 120% of the recommended daily allowance if looking at food labels.? W e recommend V itamin D3 2,000-3,000 international units a day i f you have not already been identified with an insufficiency or deficiency. Nutrition: A healthy diet with protein, vegetables, fruits, grains, and dairy is advised. More information including example serving sizes can be found at h ttps://www.choosemyplate.gov/.& #160; T hese amounts are appropriate for individuals who get less than 30 minutes per day of moderate physical activity, beyond normal daily activities. Those who are more physically active may be able to consume more while staying within calorie needs. Ordered: valACYclovir(Valtrex 500 mg oral tablet), 1 tab(s), Oral, Daily, # 90 tab(s), 3 total refill(s), Maintenance, 1 tab(s) Oral Daily, Pharmacy: [facility] [Not filled] 2. E ncounter for screening for malignant neoplasm of vagina co test 3yrs if neg today Ordered: AP Cytology [employer] HPV High Risk (16/18/Other) 3. C arcinoma in situ of cervix, unspecified co test 3yrs through 2028 4. U rinary urgency keep voiding diary; bladder irritants handout given; f/u if no improvement of symptoms 5. H ormone replacement therapy risks, side effects reviewed; willing to try decrease in dose Ordered: conjugated estrogens(Premarin 0.625 mg oral tablet), 1 tab(s), Oral, Daily, # 90 tab(s), 3 total refill(s), Maintenance, 1 tab(s) Oral Daily, Pharmacy: [facility] [Federal Rx: #90 last filled 08/29/23] Yoan Moreira [facility] NANCY [facility] Diagnostic Tests PendingHPV High Risk (16/18/Other) 09/05/23 03/20/2025 0055C-375[facility] Functional Status Combined list of recent functional and cognitive assessments recorded at Department of Defense and Veterans Affairs (VA).VA Functional Weber Measurement (FIM) Scale: 1 = Total Assistance (Subject = 0% +), 2 = Maximal Assistance (Subject = 25% +), 3 = Moderate Assistance (Subject = 50% +), 4 = Minimal Assistance (Subject = 75% +), 5 = Supervision, 6 = Modified Weber (Device), 7 = Complete Weber (Timely, Safely). Assessment Date/Time Source Assessment Type Assessment Skill Assessment Score Assessment Details No data available for this section
--- OUTSIDE RECORDS SUMMARY | 2025-03-20 01:23 | XMS_ITS | Continuity of Care Document ---
Author Name [facility] Address [address] [place] [address] Organization [facility] Care Team Providers Care Operations Superintendent Name Role Phone [facility] Unavailable Unavailable Problems Problem Status Onset Date Problem Type Date of Resolution Comme nts Source Jaw pain Active Diagnosis Pain of left shoulder joint (finding) Diagnosis Accident caused by agricultural machine (finding) Diagnosis Active movement, function (observable entity) Diagnosis Place of occurrence of accident or poisoning (environment) Diagnosis Injury due to exposure to external cause (disorder) Diagnosis
[2025-03-20] MEDS: LACTATED RINGERS 1,000 ML 30 ML IV CONT ×2 (06:40→10:13)
--- NOTE | 2025-03-20 07:14 | P.PNAN_ITS ---
Anes - Initial Pre Proc Eval Procedure: Operation Date: 03/20/25 07:30 Proposed Procedures p Resection of Nonunion with Application of Bone Graft, Left Fourth Metatarsal, Possible [place] Bone Graft Left Calcaneus - Ugo Mcgraw DPM Date/Time: 03/20/25 07:14 Surgeon: Ugo Mcgraw DPM Pre Op Diagnosis: displace fracture 4th let metatarsal Patient Data Age: 54 Gender: F Height: 1.7 m Weight: 81.8 kg Allergies Allergy/AdvReac Type Severity Reaction Status Date / Time No Known Allergies Allergy Verified 03/12/25 12:46 Home Medications ?Medication ?Instructions ?Recorded ?Confirmed ?Type sumatriptan succinate 100 mg tablet 100 mg PO BID PRN migraine 04/09/21 03/12/25 Rx headache #9 tabs erenumab-aooe 140 mg/mL 140 mg subcut MONTHLY 12/29/21 03/12/25 History subcutaneous auto-injector (Aimovig Autoinjector) lamotrigine 200 mg tablet 200 mg PO DAILY 01/26/23 03/12/25 History diclofenac sodium 75 mg 75 mg PO BID 12/21/23 03/12/25 History tablet,delayed release sulfasalazine 500 mg 1,000 mg PO BID 12/21/23 03/12/25 History tablet,delayed release multivitamin 1 tablet PO DAILY 02/13/24 03/12/25 History omeprazole 40 mg capsule,delayed 40 mg PO DAILY 3 months #90 caps 05/01/24 03/12/25 Rx release hydroxyzine HCl 25 mg tablet 25 mg PO BID 05/29/24 03/12/25 History golimumab 50 mg/0.5 mL 50 mg subcut MONTHLY 07/31/24 03/12/25 History subcutaneous pen injector tramadol 50 mg tablet 50 mg PO TID 07/31/24 03/12/25 History azathioprine 50 mg tablet 150 mg PO DAILY 10/24/24 03/12/25 History cyclobenzaprine 10 mg tablet 10 mg PO BID 10/24/24 03/12/25 History duloxetine 30 mg capsule,delayed 30 mg PO DAILY 10/24/24 03/12/25 History release duloxetine 60 mg capsule,delayed 60 mg PO DAILY 10/24/24 03/12/25 History release esterified 1 tablet PO DAILY 10/24/24 03/12/25 History estrogens-methyltestosterone 1.25 mg-2.5 mg tablet progesterone micronized 100 mg 100 mg PO DAILY 10/24/24 03/12/25 History capsule amlodipine 10 mg tablet 10 mg PO DAILY #90 tabs 12/03/24 03/12/25 Rx metoprolol succinate 100 mg 100 mg PO DAILY #90 tabs 12/03/24 03/12/25 Rx tablet,extended release 24 hr Patient hx anesthesia problems: none Family hx anesthesia problems: none Results Review: All pre-operative results and documents have been reviewed as part of the pre- operative evaluation. [facility] Past Medical History Medical History Nausea after anesthesia Degenerative joint disease of knee Constipation Dysuria Effusion of knee joint Atrophy of quadriceps femoris muscle Post-menopausal Lupus (systemic lupus erythematosus) Bilateral hand pain Degenerative joint disease of knee, right Fatigue Myalgia LEIGH positive GERD (gastroesophageal reflux disease) IT band syndrome Left knee Irritable bowel syndrome with constipation Metacarpophalangeal joint pain of left hand Chronic neck and back pain Essential (primary) hypertension Prediabetes Urge incontinence Edema of left lower extremity Intractable migraine without status migrainosus History of colon polyps Vitamin D deficiency Arthritis Trochanteric bursitis of right hip Adenomatous colon polyp Back pain spinal cord stimulator- left lower back Surgical History Surgical History History of cervical spinal surgery (~2009) C4-6 History of lumbosacral spine surgery (~2009) L5-S1 S/P insertion of spinal cord stimulator 08/2024, 2014 Hx of left inguinal hernia repair (~07/2022) robo assisted LIH repair with mesh on 08/01/22 History of abdominoplasty (~2009) Hx of tonsillectomy (~1982) History of hysterectomy (~2000) History of cholecystectomy (~1996) Hx of section 1988 & 1996 Family History Family History Grandparent Hypertension Family history of alcoholism Carcinoma of colon Family history of throat cancer Family history of malignant neoplasm of ovary Father Family history of alcoholism Family history of cardiovascular disease Cerebrovascular accident Hypertension Mother Family history of lung cancer Family history of malignant neoplasm of ovary Hypertension Other Family history of arthritis Family history of malignant neoplasm Social History Social History Smoking packs per day: 0.5 Smoking cigarettes per day: 10.0 Years smoked: 10 Smoking pack-years: 5.00 Smoking status: Former smoker Tobacco type: cigarettes Second hand tobacco smoke exposure: No Smoking end date: 03/12/05 Additional smoking assessment comments: Denies any Nicotine usage Alcohol intake: never Substance use: current Substance use type: marijuana Other substance usage details: Gummies at for sleep Last use: occasionally Do You Feel Safe in your Home?: Yes Lack of Transportation: No Lack of Food: Never True Current Housing: I Have Housing Concerned About Future Housing: No Difficulty Paying Gas/Electric Bills: No Difficulty Paying for Meds: No Currently Unemployed: No Education: Associate Degree Difficulty w/ Childcare or Family Care: No Living arrangements: with family Additional living arrangements comments: 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 Gender identity (if verbalized by the patient): Female Sexual Orientation (if Verbalized by the Patient): Straight or Heterosexual Spiritual care concerns: No Agree to blood products: Yes Anes - Eval Final PreProcedure Day of Procedure 03/20/25 07:14 Patient weight: overweight Heart: regular rate and rhythm Lungs: clear to auscultation Airway: Mallampati scale class II Neurological: alert and oriented Last oral intake: >/= 8 hours ASA classification: II Emergent: no Anesthetic plan: proceed Anesthesia type and monitoring: general LMA and standard monitoring Results Review: All pre-operative results and documents have been reviewed as part of the pre- operative evaluation. Informed Consent: The patient's anesthetic plan and its attendant risks and benefits were discussed with the patient/family/POA. Questions were solicited and answers provided to the satisfaction of the patient/family/POA.
--- NOTE | 2025-03-20 07:24 | WPDHPUPDATE1 ---
History and Physical Update Update Date/Time: 03/20/25 07:24 History and Physical has been reviewed, including an updated exam of the patient. There are NO changes in the patient's condition. Risks, benefits, and alternatives have been discussed and questions answered. Patient agrees to proceed with procedure.
[2025-03-20] MEDS: SCOPOLAMINE 1 MG PATCH 1 PATCH TRANSDERM (07:30)
--- NOTE | 2025-03-20 07:35 | PM.IMHP ---
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 Review of Systems Review of Systems: All systems reviewed & are unremarkable except as noted in HPI and below Constitutional: Constitutional: Reports no additional constitutional complaints [facility] Past Medical History Medical History Nausea after anesthesia Degenerative joint disease of knee Constipation Dysuria Effusion of knee joint Atrophy of quadriceps femoris muscle Post-menopausal Lupus (systemic lupus erythematosus) Bilateral hand pain Degenerative joint disease of knee, right Fatigue Myalgia LEIGH positive GERD (gastroesophageal reflux disease) IT band syndrome Left knee Irritable bowel syndrome with constipation Metacarpophalangeal joint pain of left hand Chronic neck and back pain Essential (primary) hypertension Prediabetes Urge incontinence Edema of left lower extremity Intractable migraine without status migrainosus History of colon polyps Vitamin D deficiency Arthritis Trochanteric bursitis of right hip Adenomatous colon polyp Back pain spinal cord stimulator- left lower back Surgical History Surgical History History of cervical spinal surgery (~2009) C4-6 History of lumbosacral spine surgery (~2009) L5-S1 S/P insertion of spinal cord stimulator 08/2024, 2014 Hx of left inguinal hernia repair (~07/2022) robo assisted LIH repair with mesh on 08/01/22 History of abdominoplasty (~2009) Hx of tonsillectomy (~1982) History of hysterectomy (~2000) History of cholecystectomy (~1996) Hx of section 1988 & 1996 Family History Family History Grandparent Hypertension Family history of alcoholism Carcinoma of colon Family history of throat cancer Family history of malignant neoplasm of ovary Father Family history of alcoholism Family history of cardiovascular disease Cerebrovascular accident Hypertension Mother Family history of lung cancer Family history of malignant neoplasm of ovary Hypertension Other Family history of arthritis Family history of malignant neoplasm Social History Social History Smoking packs per day: 0.5 Smoking cigarettes per day: 10.0 Years smoked: 10 Smoking pack-years: 5.00 Smoking status: Former smoker Tobacco type: cigarettes Second hand tobacco smoke exposure: No Smoking end date: 03/12/05 Additional smoking assessment comments: Denies any Nicotine usage Alcohol intake: never Substance use: current Substance use type: marijuana Other substance usage details: Gummies at for sleep Last use: occasionally Do You Feel Safe in your Home?: Yes Lack of Transportation: No Lack of Food: Never True Current Housing: I Have Housing Concerned About Future Housing: No Difficulty Paying Gas/Electric Bills: No Difficulty Paying for Meds: No Currently Unemployed: No Education: Associate Degree Difficulty w/ Childcare or Family Care: No Living arrangements: with family Additional living arrangements comments: 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 Gender identity (if verbalized by the patient): Female Sexual Orientation (if Verbalized by the Patient): Straight or Heterosexual Spiritual care concerns: No Agree to blood products: Yes Meds Home Medications and Allergies Home Medications ?Medication ?Instructions ?Recorded ?Confirmed ?Type sumatriptan succinate 100 mg tablet 100 mg PO BID PRN migraine 04/09/21 03/12/25 Rx headache #9 tabs erenumab-aooe 140 mg/mL 140 mg subcut MONTHLY 12/29/21 03/12/25 History subcutaneous auto-injector (Aimovig Autoinjector) lamotrigine 200 mg tablet 200 mg PO DAILY 01/26/23 03/12/25 History diclofenac sodium 75 mg 75 mg PO BID 12/21/23 03/12/25 History tablet,delayed release sulfasalazine 500 mg 1,000 mg PO BID 12/21/23 03/12/25 History tablet,delayed release multivitamin 1 tablet PO DAILY 02/13/24 03/12/25 History omeprazole 40 mg capsule,delayed 40 mg PO DAILY 3 months #90 caps 05/01/24 03/12/25 Rx release hydroxyzine HCl 25 mg tablet 25 mg PO BID 05/29/24 03/12/25 History golimumab 50 mg/0.5 mL 50 mg subcut MONTHLY 07/31/24 03/12/25 History subcutaneous pen injector tramadol 50 mg tablet 50 mg PO TID 07/31/24 03/12/25 History azathioprine 50 mg tablet 150 mg PO DAILY 10/24/24 03/12/25 History cyclobenzaprine 10 mg tablet 10 mg PO BID 10/24/24 03/12/25 History duloxetine 30 mg capsule,delayed 30 mg PO DAILY 10/24/24 03/12/25 History release duloxetine 60 mg capsule,delayed 60 mg PO DAILY 10/24/24 03/12/25 History release esterified 1 tablet PO DAILY 10/24/24 03/12/25 History estrogens-methyltestosterone 1.25 mg-2.5 mg tablet progesterone micronized 100 mg 100 mg PO DAILY 10/24/24 03/12/25 History capsule amlodipine 10 mg tablet 10 mg PO DAILY #90 tabs 12/03/24 03/12/25 Rx metoprolol succinate 100 mg 100 mg PO DAILY #90 tabs 12/03/24 03/12/25 Rx tablet,extended release 24 hr Allergies Allergy/AdvReac Type Severity Reaction Status Date / Time No Known Allergies Allergy Verified 03/12/25 12:46 Assessment and Plan Assessment and plan (1) Foot pain, left: Code(s): M79.672 - Pain in left foot Status: Acute Plan 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
--- NOTE | 2025-03-20 07:47 | WPDHPUPDATE1 ---
History and Physical Update Update Date/Time: 03/20/25 07:47 History and Physical has been reviewed, including an updated exam of the patient. There are NO changes in the patient's condition. Risks, benefits, and alternatives have been discussed and questions answered. Patient agrees to proceed with procedure. resection of nonunion with application of bone graft left fourth metatarsal, possible harvest bone graft left calcaneus
[2025-03-20] MEDS: ceFAZolin 1 GM in SODIUM CHLORIDE 0.9% IV 50 ML 100 ML IVPB (07:53)
[2025-03-20] MEDS: BUPivacaine HCL 0.5% 10 ML AMP INFILTRATE (09:14)
[2025-03-20] MEDS: LIDOCAINE 2% LOCAL INJ 20 ML VIAL 10 ML INFILTRATE (09:15)
--- NOTE | 2025-03-20 10:20 | W.PM.PROC2 ---
Procedure Note - Detailed Date of Procedure 03/20/25 Pre-op Diagnosis displace fracture 4th let metatarsal Post-op Diagnosis Same Procedure Performed Resection nonunion 4th metatarsal with bone graft left foot Surgeon Ugo Mcgraw DPM Anesthesia General Description of Procedure resection nonunion 4th metatarsal with application bone graft left foot Drains No Packing No Pathology None sent Complications None Condition Stable Disposition PACU
--- NOTE | 2025-03-25 05:17 | OP_ITS ---
DATE OF PROCEDURE: 03/20/2025 PREOPERATIVE DIAGNOSIS: Nonunion fracture, base of the 4th metatarsal, left foot. 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 PROCEDURE: Resection of nonunion, base of the 4th metatarsal, left foot with application of ConMed freeze-dried bone graft and staple fixation. ANESTHESIA: General anesthesia. HEMOSTASIS: Ankle tourniquet inflated to 250 mmHg. INJECTABLES: 30 mL 0.5% Marcaine, 2% lidocaine locally. PROCEDURE IN DETAIL: The patient was brought to the operating room, laid on the operating table in the supine position where at this time general anesthesia was induced. The patient was prepped and draped in the usual sterile manner and local anesthesia was achieved. Attention was directed with utilization of the Fluoroscan to identify the nonunion. Base of the 4th metatarsal was identified and the skin incision was made with #15 blade approximately 4-5 cm in length. Incision was deepened being careful along the neurovascular structures, ligating and boving any bleeders as necessary. Via sharp and blunt dissection, incision was deepened through the periosteal capsular layer where a full length incision was made through the periosteal capsular layer overlying the nonunion. At this time, it did expose. There were quite a bit of adhesions dorsally to the structures, which were all freed in their entirety and the nonunion area was revealed. The degenerative fibrotic bone was excised in toto with an oscillating saw. At this time, it was decided to reconstitute freeze-dried bone from ConMed and sterile saline for 25 minutes. The bony surfaces were prepared. A graft was applied and fixation was achieved with a staple. It had to be angled in a way where the proximal leg of the staple was quite lateral and I had to angle that for the distal leg to reach distal portion of the metatarsal. Great stability was achieved through that fixation even though the staple was not completely overlying the bone graft, but just enough to achieve great compression and stability. With the coverage, it was able to achieve with the plate. Wound was flushed with copious amount of sterile saline. were made. Periosteal capsular layer reapproximated with 3-0 Monocryl, subcutaneous tissue with 3-0 Monocryl, and skin with 3-0 nylon. Area was dressed with sterile adaptic, sterile 4x4's, and sterile Shlomo. Tourniquet was released. Vascular status was noted to return to left foot with normal pedal pulses, good cap refilling time, good color and temperature of the digits. The patient left the operating room with vital signs stable, vascular status intact in a satisfactory condition. The patient was subsequently discharged with oral and written instructions and will remain with strict nonweightbearing. Also, posterior splint was applied before leaving the operating room. D I MT: Rao
== END 2025-03-20 12:02 | disposition home or self-care (01) ==
PROVIDERS: PCP Family Medicine; Visit Provider Podiatrist Foot & Ankle Surgery
PROC: (CPT 28299; principal; 2025-03-20 07:30)
DX: S92.342A Displaced fracture of fourth metatarsal bone, left foot, initial encounter for closed fracture (principal); F12.90 Cannabis use, unspecified, uncomplicated; X58.XXXA Exposure to other specified factors, initial encounter; Z87.891 Personal history of nicotine dependence
CPT/HCPCS: 28322; 99199; A9270; C1713; J0690; J1100; J2003; J2250; J2405; J2704; J3010; J7120

== ENCOUNTER 2025-05-28 13:56 | Outpatient (CLI) | payer OTHER, SELFPAY | END 2025-05-28 13:57 | disposition home or self-care (01) | LOC: ANHAUDIO 13:56 | PROVIDERS: PCP Family Medicine; Visit Provider Family Medicine | DX: H93.13 Tinnitus, bilateral (principal); H90.41 Sensorineural hearing loss, unilateral, right ear, with unrestricted hearing on the contralateral side; H74.8X2 Other specified disorders of left middle ear and mastoid | CPT/HCPCS: 92557; 92567 ==

== ENCOUNTER 2025-05-30 10:08 | Outpatient (CLI) | payer OTHER, SELFPAY ==
[2025-05-30 10:48] LABS: Hematocrit 43.7 % (37.0-47.0); Hemoglobin 13.8 g/dL (12.0-15.0); Immature Granulocyte Percent A 0.3 % (0-0.5); Lymphocytes Absolute Auto 1.71 K/mm3 (0.9-3.2); Mean Corpuscular HGB Conc 31.6 g/dl (32-36); Mean Corpuscular Hemoglobin 32.2 pg (26-34); Mean Corpuscular Volume 102.1 fl (80-100); Nucleated Red Blood Cells Absolute Auto 0.000 K/mm3 (0.0-0.012); Nucleated Red Blood Cells Perc 0.0 % (0.0-0.2); Platelet Count Result 336 k/mm3 (150-375); Red Blood Count 4.28 M/mm3 (4.2-5.4); White Blood Count 5.8 K/mm3 (4.5-10.0)
[2025-05-30 11:13] LABS: Alanine Aminotransferase 22 U/L (6-35); Albumin Level 4.1 g/dL (3.5-5.1); Alkaline Phosphatase 69 U/L (38-126); Anion Gap 6 mmol/L (4-12); Aspartate Amino Transferase 30 U/L (14-36); Bilirubin,Total 0.5 mg/dL (0.2-1.3); Blood Urea Nitrogen 11 mg/dL (7-17); Calcium 9.3 mg/dL (8.4-10.2); Carbon Dioxide 32 mmol/L (22-30); Chloride 100 mmol/L (98-107); Cholesterol 209 mg/dL (0-200); Estimated Glomerular Filt Rate > 60; Glucose 99 mg/dL (65-110); HDL Direct 39 mg/dL; Potassium 4.2 mmol/L (3.4-5.0); Sodium 138 mmol/L (137-145); Total Protein 6.9 g/dL (6.3-8.2); Triglycerides 140 mg/dL (<150)
[2025-05-30 11:45] LABS: Thyroid Stimulating Hormone Reflex 2.240 uIU/mL (0.465-4.68)
[2025-05-30 11:45] LABS: Hemoglobin A1C 4.8 % (<5.7)
[2025-05-30 12:08] LABS: Vitamin B12 515.0 pg/mL (239-931)
== END 2025-05-30 10:09 | disposition home or self-care (01) ==
PROVIDERS: PCP Family Medicine; Visit Provider Family Medicine
DX: Z00.00 Encounter for general adult medical examination without abnormal findings (principal); M79.10 Myalgia, unspecified site; I10 Essential (primary) hypertension; Z79.899 Other long term (current) drug therapy; R73.03 Prediabetes; E55.9 Vitamin D deficiency, unspecified; E53.8 Deficiency of other specified B group vitamins; E78.5 Hyperlipidemia, unspecified; K59.00 Constipation, unspecified
CPT/HCPCS: 36415; 80053; 80061; 82306; 82607; 83036; 84443; 85025